=== PATIENT | female | born 1940 | race Caucasian/White ===

== ENCOUNTER → 2016-06-28 | Outpatient (CLI) | payer MEDICARE ==
[~2016-06-28] MED LIST: ASCO-262 PO; ASPI-587 PO; BISO5TAB PO; CHOL10007 PO; CYAN100088 PO; CYAN50TA PO; ERGO400C PO; FISH1CAP15 PO; FURO20TA4 PO; GLUC100016 PO; GLUC1CAP37 PO; LOSA50TA36 PO; MELO-198 PO; MELO15TA39 PO; METF500T4 PO; METF500T8 PO; NAPR220C11 PO; NEBI5TAB8 PO; OMEG-34 PO; POTA10CA43 PO; PREG50CA2 PO; VITAMINE C PO; [UNRECOGNIZED DRUG - OTHER]
--- OUTSIDE RECORDS SUMMARY | 2016-06-28 09:41 | XMS REPORT | Continuity of Care Document ---
Author Author [facility] Organization [facility] Address Unknown Phone Unavailable Care Team Providers Care Any Commodity Sales Deliverer Name Role Phone Unverified, Unverified PCP Unavailable Source Comments Some departments are not documenting in the electronic medical record. If you do not see the information that you expected, contact Release of Information in the Health Information Management department at [phone] for further assistance in locating additional records.[facility] Active Allergies and Adverse Reactions No Known Allergies Current Medications Prescription Sig. Disp. Refills Start End Date Status Date naproxen sodium(+) Take 220 mg by mouth Active (ALEVE) 220 mg tablet daily. aspirin 81 mg chewable Take 81 mg by mouth Active tablet daily. bisoprolol (ZEBETA) 5 mg Take 5 mg by mouth daily. Active tablet Snuktgfhdes-Ksifkwgza-Wvm Take by mouth daily. Active C-Mn (GLUCOSAMINE [...]
--- NOTE | 2016-06-28 10:30 | Diagnostic Imaging Report ---
EXAMINATION: Supine view of the abdomen. INDICATION: Right lower quadrant pain. FINDINGS: Small to moderate amount of fecal material seen in the right colon. No dilated bowel loops are seen. Multiple calcifications in the pelvis are noted which could relate to phleboliths or calcified fibroids. Mild left convexity curvature of the lumbar spine is seen with degenerative changes. IMPRESSION: Nonspecific, pelvic calcifications may relate to phleboliths or calcified fibroids. Dictated by: Dictated on workstation # [id number]
== END ==
LOC: RAD 09:36
PROVIDERS: ATTEND Nurse Practitioner Family
DX: R10.31 Right lower quadrant pain (principal); K59.00 Constipation, unspecified
CPT/HCPCS: 74000

== ENCOUNTER → 2016-07-06 | Outpatient (CLI) | payer MEDICARE ==
--- OUTSIDE RECORDS SUMMARY | 2016-07-06 15:03 | XMS REPORT | Continuity of Care Document ---
Author Author [facility] Organization [facility] Address Unknown Phone Unavailable Care Team Providers Care Zipper Sewing Machine Operator Name Role Phone Unverified, Unverified PCP Unavailable Source Comments Some departments are not documenting in the electronic medical record. If you do not see the information that you expected, contact Release of Information in the Health Information Management department at [phone] for further assistance in locating additional records.[facility] Active Allergies and Adverse Reactions No Known Allergies Current Medications Prescription Sig. Disp. Refills Start End Date Status Date naproxen sodium(+) Take 220 mg by mouth Active (ALEVE) 220 mg tablet daily. aspirin 81 mg chewable Take 81 mg by mouth Active tablet daily. bisoprolol (ZEBETA) 5 mg Take 5 mg by mouth daily. Active tablet Siuaasogssi-Ofpwdbgxd-Msb Take by mouth daily. Active C-Mn (GLUCOSAMINE [...]
--- NOTE | 2016-07-06 17:15 | Diagnostic Imaging Report ---
PROCEDURE: CT abdomen and pelvis without contrast. TECHNIQUE: Multiple contiguous axial images were obtained through the abdomen and pelvis without the use of intravenous contrast. INDICATION: Right upper quadrant abdominal pain with constipation. FINDINGS: Unenhanced images of the liver and spleen reveal no focal abnormality. Gallbladder is contracted. No pancreatic or adrenal gland abnormality is identified. Evaluation of the kidneys is limited without intravenous contrast; however, there is no evidence of mass, calculus, or hydronephrosis. There is no evidence of appendiceal region inflammation. There is mild aortoiliac atherosclerotic calcification. There is an approximately 3.5 x 3.7 cm collection of gas in the right upper quadrant, which likely represents diverticulum arising from the third portion of the duodenum. There is no evidence of free fluid in the abdomen or pelvis. No localized fluid collection is seen to indicate an abscess. Lobulated uterus does contain occasional calcifications compatible with fibroid change. IMPRESSION: Probable prominent duodenal diverticulum which could be confirmed with upper GI series. Otherwise, there is no acute abnormality identified. There is no significant excessive colonic stool burden or site of obstruction identified. Dictated by: Dictated on workstation # [id number]
== END ==
LOC: RAD 14:59
PROVIDERS: ATTEND Nurse Practitioner Family
DX: R10.11 Right upper quadrant pain (principal)
CPT/HCPCS: 74176

== ENCOUNTER → 2016-07-20 | Outpatient (CLI) | payer MEDICARE ==
[~2016-07-20] MED LIST changes: +CATHETER FLUSH 10 ML SYR IV PRN; +IOHEXOL 350 MG/ML 100 ML (OMNIPAQUE 350) VIAL IV ONE; +NS 100 ML (IVPB) BAG IV ONE
--- OUTSIDE RECORDS SUMMARY | 2016-07-20 12:39 | XMS REPORT | Continuity of Care Document ---
Author Author [facility] Organization [facility] Address Unknown Phone Unavailable Care Team Providers Care Hvac Tech Name Role Phone Unverified, Unverified PCP Unavailable Source Comments Some departments are not documenting in the electronic medical record. If you do not see the information that you expected, contact Release of Information in the Health Information Management department at [phone] for further assistance in locating additional records.[facility] Active Allergies and Adverse Reactions No Known Allergies Current Medications Prescription Sig. Disp. Refills Start End Date Status Date naproxen sodium(+) Take 220 mg by mouth Active (ALEVE) 220 mg tablet daily. aspirin 81 mg chewable Take 81 mg by mouth Active tablet daily. bisoprolol (ZEBETA) 5 mg Take 5 mg by mouth daily. Active tablet Rxoayaiuhit-Ifpiglnef-Wlx Take by mouth daily. Active C-Mn (GLUCOSAMINE [...]
[2016-07-20 12:55] LABS: BASOPHILS % (AUTO) 0 % (0-10); EOSINOPHILS # (AUTO) 0.3 10^3/uL (0.0-0.3); EOSINOPHILS % (AUTO) 4 % (0-10); LYMPHOCYTES # (AUTO) 1.9 X 10^3 (1.0-4.0); LYMPHOCYTES % (AUTO) 23 % (12-44); MEAN CORPUSCULAR HEMOGLOBIN 27 PG (25-34); MEAN CORPUSCULAR HGB CONC 33 G/DL (32-36); MEAN CORPUSCULAR VOLUME 82 FL (80-99); MEAN PLATELET VOLUME 9.6 FL (7.4-10.4); MONOCYTES # (AUTO) 0.8 X 10^3 (0.0-1.0); MONOCYTES % (AUTO) 9 % (0-12); NEUTROPHILS # (AUTO) 5.3 X 10^3 (1.8-7.8); NEUTROPHILS % (AUTO) 64 % (42-75); PLATELET COUNT 305 10^3/uL (130-400); RED BLOOD COUNT 5.34 10^6/uL (4.35-5.85); RED CELL DISTRIBUTION WIDTH 14.5 % (10.0-14.5); WHITE BLOOD COUNT 8.3 10^3/uL (4.3-11.0)
[2016-07-20 13:11] LABS: ALBUMIN 4.3 G/DL (3.2-4.5); BILIRUBIN,TOTAL 0.6 MG/DL (0.1-1.0); CALCIUM 10.3 MG/DL (8.5-10.1); CREATININE SERUM 1.12 MG/DL (0.60-1.30); POTASSIUM 5.1 MMOL/L (3.6-5.0); TOTAL PROTEIN 6.9 G/DL (6.4-8.2)
--- NOTE | 2016-07-20 15:10 | Diagnostic Imaging Report ---
INDICATION: Right lower quadrant pain. CT of the abdomen and pelvis obtained with IV contrast bolus. Comparison made to 07/06/2016. The visualized portions of the lung bases are clear. There are no pleural fluid collections. There is no free intraperitoneal air. The liver and gallbladder appear unremarkable. The spleen shows a few small cysts. The adrenals and pancreas are normal. There is a duodenal diverticulum noted. Kidneys bilaterally show no hydronephrosis. There is no ascites. There is no retroperitoneal mass or adenopathy. Visualized bowel loops appear unremarkable. The appendix appears unremarkable. The uterus has a somewhat irregular contour which may be secondary to fibroids. IMPRESSION: Normal-appearing appendix. No overt acute inflammatory process or abnormal fluid collection. Incidental cysts are noted in the spleen. The uterus has a somewhat irregular nodular contour which may be due to fibroids, consider ultrasound for follow-up. Dictated by: Dictated on workstation # [id number]
== END ==
LOC: RAD 12:35
PROVIDERS: ATTEND Surgery
DX: R10.31 Right lower quadrant pain (principal); R53.83 Other fatigue
CPT/HCPCS: 36415; 74177; 80053; 85025

== ENCOUNTER → 2016-07-24 | Outpatient (CLI) | payer MEDICARE ==
[~2016-07-24] MED LIST changes: -CATHETER FLUSH 10 ML SYR IV PRN; -IOHEXOL 350 MG/ML 100 ML (OMNIPAQUE 350) VIAL IV ONE; -NS 100 ML (IVPB) BAG IV ONE
--- OUTSIDE RECORDS SUMMARY | 2016-07-24 10:20 | XMS REPORT | Continuity of Care Document ---
Author Author [facility] Organization [facility] Address Unknown Phone Unavailable Care Team Providers Care Corporate Health Consultant Name Role Phone Unverified, Unverified PCP Unavailable Source Comments Some departments are not documenting in the electronic medical record. If you do not see the information that you expected, contact Release of Information in the Health Information Management department at [phone] for further assistance in locating additional records.[facility] Active Allergies and Adverse Reactions No Known Allergies Current Medications Prescription Sig. Disp. Refills Start End Date Status Date naproxen sodium(+) Take 220 mg by mouth Active (ALEVE) 220 mg tablet daily. aspirin 81 mg chewable Take 81 mg by mouth Active tablet daily. bisoprolol (ZEBETA) 5 mg Take 5 mg by mouth daily. Active tablet Ukhzhsjfjow-Uudsgvggd-Zbt Take by mouth daily. Active C-Mn (GLUCOSAMINE [...]
--- NOTE | 2016-07-24 14:29 | Diagnostic Imaging Report ---
Transabdominal and transvaginal pelvic ultrasound. INDICATION: Right pelvic pain. FINDINGS: The uterus is 6.1 x 4.3 x 4.2 cm and has a lobulated contour. The endometrial stripe is heterogeneous and is minimally thickened at 5 mm without internal vascularity demonstrated. The myometrium is also heterogeneous with fibroids seen with one anterior fibroid measuring 2.1 x 1.7 x 2.5 cm, other measuring 2.2 x 1.6 x 2.2 cm posteriorly, and another posterior fibroid also measuring 2.3 x 2.1 x 1.8 cm. The ovaries are obscured by bowel gas and are not seen. IMPRESSION: 1. Heterogeneity and minimal thickening in the endometrium, could correlate with endometrial hyperplasia or early carcinoma. Gynecologic evaluation is recommended. 2. Uterine fibroids. Report was called to office of Dr. Sin by at 2:29 p.m. Dictated by: Dictated on workstation # [id number]
== END ==
LOC: RAD 10:16
PROVIDERS: ATTEND Surgery
DX: D25.9 Leiomyoma of uterus, unspecified (principal); N85.00 Endometrial hyperplasia, unspecified
CPT/HCPCS: 76830; 76856

== ENCOUNTER 2016-07-25 05:50 | Outpatient (CLI) | payer MEDICARE ==
[~2016-07-25] VITALS: Ht 160 cm; Wt 73.5 kg
[~2016-07-25 05:50] MED LIST changes: -ASCO-262 PO; -BISO5TAB PO; -CHOL10007 PO; -CYAN100088 PO; -FISH1CAP15 PO; -GLUC100016 PO; -GLUC1CAP37 PO; -LOSA50TA36 PO; -MELO15TA39 PO; -METF500T4 PO; -NAPR220C11 PO; -PREG50CA2 PO; -VITAMINE C PO; -[UNRECOGNIZED DRUG - OTHER]
--- OUTSIDE RECORDS SUMMARY | 2016-07-25 05:52 | XMS REPORT | Continuity of Care Document ---
Author Author [facility] Organization [facility] Address Unknown Phone Unavailable Care Team Providers Care Cpr Instructor Name Role Phone Unverified, Unverified PCP Unavailable Source Comments Some departments are not documenting in the electronic medical record. If you do not see the information that you expected, contact Release of Information in the Health Information Management department at [phone] for further assistance in locating additional records.[facility] Active Allergies and Adverse Reactions No Known Allergies Current Medications Prescription Sig. Disp. Refills Start End Date Status Date naproxen sodium(+) Take 220 mg by mouth Active (ALEVE) 220 mg tablet daily. aspirin 81 mg chewable Take 81 mg by mouth Active tablet daily. bisoprolol (ZEBETA) 5 mg Take 5 mg by mouth daily. Active tablet Apfnddsivka-Kzkgqizql-Iws Take by mouth daily. Active C-Mn (GLUCOSAMINE [...]
[2016-07-26] MEDS ORDERED: BISO5TAB PO (08:31)
[2016-07-26] MEDS ORDERED: MELO15TA39 PO (08:31)
[2016-07-26] MEDS ORDERED: GLUC100016 PO (08:31)
[2016-07-26] MEDS ORDERED: NAPR220C11 PO (08:31)
[2016-07-26] MEDS ORDERED: [UNRECOGNIZED DRUG - OTHER] (08:31)
[2016-07-26] MEDS ORDERED: VITAMINE C PO (08:31)
[2016-07-26] MEDS ORDERED: LOSA50TA36 PO (08:31)
[2016-07-26] MEDS ORDERED: METF500T4 PO (08:31)
== END 2016-07-25 14:45 ==
LOC: PREOP 05:50
PROVIDERS: ATTEND Surgery
DX: Z01.818 Encounter for other preprocedural examination (principal); R19.4 Change in bowel habit

== ENCOUNTER 2016-07-26 07:49 | Day surgery (SDC) | payer MEDICARE ==
[~2016-07-26] VITALS: Ht 160 cm; Wt 73.5 kg
--- OUTSIDE RECORDS SUMMARY | 2016-07-26 07:53 | XMS REPORT | Continuity of Care Document ---
Author Author [facility] Organization [facility] Address Unknown Phone Unavailable Care Team Providers Care Human Resources Designate Name Role Phone Unverified, Unverified PCP Unavailable Source Comments Some departments are not documenting in the electronic medical record. If you do not see the information that you expected, contact Release of Information in the Health Information Management department at [phone] for further assistance in locating additional records.[facility] Active Allergies and Adverse Reactions No Known Allergies Current Medications Prescription Sig. Disp. Refills Start End Date Status Date naproxen sodium(+) Take 220 mg by mouth Active (ALEVE) 220 mg tablet daily. aspirin 81 mg chewable Take 81 mg by mouth Active tablet daily. bisoprolol (ZEBETA) 5 mg Take 5 mg by mouth daily. Active tablet Rhacsqfllmi-Pjcbfapgn-Vkc Take by mouth daily. Active C-Mn (GLUCOSAMINE [...]
--- OUTSIDE RECORDS SUMMARY | 2016-07-26 07:54 | XMS REPORT | Continuity of Care Document ---
Author Author [facility] Organization [facility] Address Unknown Phone Unavailable Care Team Providers Care Oilfield Plant And Field Operator Name Role Phone Unverified, Unverified PCP Unavailable Source Comments Some departments are not documenting in the electronic medical record. If you do not see the information that you expected, contact Release of Information in the Health Information Management department at [phone] for further assistance in locating additional records.[facility] Active Allergies and Adverse Reactions No Known Allergies Current Medications Prescription Sig. Disp. Refills Start End Date Status Date naproxen sodium(+) Take 220 mg by mouth Active (ALEVE) 220 mg tablet daily. aspirin 81 mg chewable Take 81 mg by mouth Active tablet daily. bisoprolol (ZEBETA) 5 mg Take 5 mg by mouth daily. Active tablet Xrdupyiojzb-Olnkztygh-Dei Take by mouth daily. Active C-Mn (GLUCOSAMINE [...]
[2016-07-26] MEDS ORDERED: NS IV 500 ML 500 ML IV SCH (08:00)
[2016-07-26] MEDS ORDERED: NALOXONE 0.4 MG/ML 1 ML (NARCAN) VIAL IVP PRN (08:00)
[2016-07-26] MEDS ORDERED: FLUMAZENIL (ROMAZICON) 0.1 MG/ML 5 ML VIAL INJ PRN (08:00)
[2016-07-26] MEDS ORDERED: NS IV 500 ML 500 ML ONE (08:01)
[2016-07-26] MEDS ORDERED: VITAMINE C PO (08:31)
[2016-07-26] MEDS ORDERED: GLUC100016 PO (08:31)
[2016-07-26] MEDS ORDERED: METF500T4 PO (08:31)
[2016-07-26] MEDS ORDERED: [UNRECOGNIZED DRUG - OTHER] (08:31)
[2016-07-26] MEDS ORDERED: BISO5TAB PO (08:31)
[2016-07-26] MEDS ORDERED: LOSA50TA36 PO (08:31)
[2016-07-26] MEDS ORDERED: MELO15TA39 PO (08:31)
[2016-07-26] MEDS ORDERED: NAPR220C11 PO (08:31)
[2016-07-26 08:32] VITALS: BP 107/70
[2016-07-26] MEDS: fentaNYL INJECTION 100 MCG/2 ML AMP IVP PRN ×2 (09:27→09:40)
[2016-07-26] MEDS: MIDAZOLAM 2 MG/2 ML (VERSED) VIAL IVP PRN ×2 (09:30→09:35)
--- NOTE | 2016-07-26 09:30 | Pre-Op Note & Conscious Sedat ---
Pre-Operative Progress Note H&P Reviewed The H&P was reviewed, patient examined and no changes noted. Date H&P Reviewed: Jul 26, 2016 Time H&P Reviewed: 09:29 Pre-Op Diagnosis: change in bowel habits. Right lower quadrant abdominal pain Conscious Sedation Pre-Proced ASA Class: 2 Airway Mallampati Classification: ([place] appropriate class) I. II. III, IV Lungs Heart ASA score ASA 1: a normal healthy patient ASA 2: a patient with a mild systemic disease (mid diabetes, controlled hypertension, obesity ASA 3: a patient with a severe systemic disease that limits activity (angina , COPD, prior Myocardial infarction) ASA 4: a patient with an incapacitating disease that is a constant threat to life (CHF, renal failure) ASA 5: a moribund patient not expected to survive 24 hrs. (ruptured aneurysm) ASA 6: a declared brain patient whose organs are being harvested. For emergent operations, add the letter E after the classification Grade 1 Sedation Plan: Discussed options with patient/fam Note The patient is an appropriate candidate to undergo the planned procedure, sedation, and anesthesia. The patient immediately re-assessed prior to indication. MARY MATIAS MD Jul 26, 2016 9:30 am
[2016-07-26] MEDS ORDERED: MIDAZOLAM 2 MG/2 ML (VERSED) VIAL ONE ×3 (09:32)
[2016-07-26] MEDS ORDERED: fentaNYL INJECTION 100 MCG/2 ML AMP ONE ×2 (09:32)
--- NOTE | 2016-07-26 09:54 | Progress Note-Post Operative ---
Post-Operative Progess Note Pre-Operative Diagnosis change in bowel habits. Right lower quadrant abdominal pain Post-Operative Diagnosis sigmoid diverticulosis Post-Op Procedure Note Date of Procedure: Jul 26, 2016 Name of Procedure: ccolonoscopy to cecum Anesthesia Type sedation MARY MATIAS MD Jul 26, 2016 9:53 am
--- NOTE | 2016-07-26 09:55 | Discharge Inst-Simple/Standard ---
Discharge Inst-Standard Discharge Medications New, Converted or Re-Newed RX: Other Patient Instructions/Follow Up Plan of Care/Instructions/FU: to attend the [facility] [employer] [facility] appointment as scheduled Activity as Tolerated: Yes Discharge Diet: No Restrictions MARY MATIAS MD Jul 26, 2016 9:55 am
[2016-07-26 10:25] VITALS: BP 147/70
[2016-07-26 10:53] VITALS: BP 152/79
[2016-07-26 11:01] VITALS: BP 152/79
--- NOTE | 2016-07-27 11:21 | PROCEDURE REPORT ---
PROCEDURE PHYSICIAN: MARY MATIAS DATE OF PROCEDURE: 07/26/2016 PROCEDURE: Colonoscopy. SURGEON: Merrikc INDICATION FOR THE PROCEDURE: This lady has been evaluated for the 3 week history of pain over the right lower quadrant and a change in her bowel habits. She has a family history of colon cancer and a personal history of polyps. Informed consent was obtained after reviewing the procedure in detail. DESCRIPTION OF PROCEDURE: She was placed in left lateral decubitus position and her vital signs were monitored. Conscious sedation was achieved using Versed and Fentanyl. Examination of the perianal area revealed skin tags and external hemorrhoids. The colonoscope was then introduced into the rectum and advanced all the way up to the cecum. The quality of bowel preparation was excellent. FINDINGS: Very few sigmoid diverticula. No polyps were found. She tolerated the procedure well and was taken back to the nursing area in a stable condition. IMPRESSION: 1. Right lower quadrant pain. 2. No contributing lesions found on the right colon. Job ID: [id number] Dictated Date: 07/26/2016 09:50:42 Flight Manager Date: 07/27/2016 11:18:02 / belen OCONNELL
== END 2016-07-26 11:00 | disposition home or self-care (01) ==
LOC: ENDO 07:49
PROVIDERS: ATTEND Surgery
DX: R19.4 Change in bowel habit (principal); K57.30 Diverticulosis of large intestine without perforation or abscess without bleeding; R10.31 Right lower quadrant pain

== ENCOUNTER 2016-08-02 10:25 | Inpatient (IN) | payer MEDICARE ==
[~2016-08-02] VITALS: Ht 160 cm; Wt 76.3 kg
[~2016-08-02 10:25] MED LIST changes: +BISO5TAB PO; +GLUC100016 PO; +LOSA50TA36 PO; +MELO15TA39 PO; +METF500T4 PO; +NAPR220C11 PO; +VITAMINE C PO; +[UNRECOGNIZED DRUG - OTHER]
[2016-08-02] MEDS ORDERED: fentaNYL INJECTION 100 MCG/2 ML AMP IV PRN (10:30)
[2016-08-02] MEDS ORDERED: ENOXAPARIN 40 MG/0.4 ML (LOVENOX) SYR SC SCH (10:30)
--- NOTE | 2016-08-02 10:54 | History & Physicial ---
History of Present Illness History of Present Illness Reason for visit/HPI intractable abdominal pain Date of Admission I consulted on this patient on 08/02/16 10:36 Attending Physician Gracia Yadav MD Admitting Physician Gracia Yadav MD Consult Allergies and Home Medications Allergies Coded Allergies: No Known Drug Allergies (Verified , 07/26/16) Home Medications 500 MG PO DAILY (Reported) (Reported) Aspirin 81 Mg Tablet.dr 81 MG PO (Reported) Bisoprolol Fumarate 5 Mg Tablet 5 MG PO DAILY (Reported) Cholecalciferol 400 Unit Capsule 400 UNIT PO DAILY (Reported) Cyanocobalamin 50 Mcg Tablet 50 MCG PO DAILY (Reported) Glucosamine Sulfate 2Kcl 1,000 Mg Tablet 1,000 MG PO DAILY (Reported) Losartan Potassium 50 Mg Tablet 50 MG PO DAILY (Reported) Meloxicam 15 Mg Tablet 15 MG PO DAILY (Reported) Metformin HCl 500 Mg Tablet 500 MG PO DAILY (Reported) Metformin Hcl 500 Mg Tab.sr.24h 1 EACH PO DAILY WITH MEAL (Reported) Naproxen Sodium 220 Mg Capsule 220 MG PO NEEDED (Reported) [place]-3/Dha/Epa/Fish Oil 1 Each Capsule 1 EACH PO DAILY (Reported) Past Qqgzfjz-Hnlxol-Srbspy Hx Patient Social History Marrital Status: Number of Children: 1 Number of living children: 1 Living Status: lives at home alone 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 Alcohol Use: Denies Use Recreational Drug Use: No Smoking Status: Never a Smoker 2nd Hand Smoke Exposure: No Physical Abuse Screen: No Sexual Abuse: No Recent Foreign Travel: No Contact w/other who traveled: No Recent Hopitalizations: No Recent Infectious Disease Expo: No Seasonal Allergies Seasonal Allergies: Yes (MILD) Surgeries HX Surgeries: Yes (BACK, CATARACT, ROTATOR CUFF) Surgeries: Orthopedic Respiratory Hx Respiratory Disorders: No Cardiovascular Hx Cardiovascular Disorders: Yes Cardiac Disorders: Hypertension Neurological Hx Neurological Disorders: No Reproductive System : No Hx Reproductive Disorders: No Sexually Transmitted Disease: No HIV/AIDS: No Genitourinary Hx Genitourinary Disorders: No Gastrointestinal Hx Gastrointestinal Disorders: No Musculoskeletal Hx Musculoskeletal Disorders: Yes Musculoskeletal Disorders: Arthritis Endocrine Hx Endocrine Disorders: Yes Endocrine Disorders: Diabetes, Non-Insulin dep HEENT HX ENT Disorders: No Loss of Vision: Denies Hearing Impairment: Denies Cancer Hx Cancer: No Psychosocial Hx Psychiatric Problems: No Integumentary HX Skin/Integumentary Disorder: No Blood Transfusions Hx Blood Disorders: No Adverse Reaction to a Blood Tr: No (N/A) Reviewed Nursing Assessment Reviewed/Agree w Nursing PMH: Yes Family Medical History Significant Family History: Heart Disease (mother), Cancer (colon cancer, father, brother with cancer), Hypertension (mother) Constitutional: No chills, No fever, No malaise, No weakness EENTM: No hoarseness, No mouth swelling, No throat pain, No throat swelling Respiratory: No cough, No dyspnea on exertion, No short of breath Cardiovascular: No chest pain, No palpitations Gastrointestinal: abdominal pain (RLQ)No constipation, No loss of appetite, No melena, No nausea, No vomiting Genitourinary: No dysuria, No hematuria Musculoskeletal: No back pain, No muscle weakness Skin: no symptoms reported Psychiatric/Neurological: Anxiety (over her pain)Denies Numbness, Denies Paresthesia, Denies Weakness All Other Systems Reviewed Negative Unless Noted: Yes Physical Exam Vital Signs Capillary Refill : General Appearance: WD/WN Mild Distress Eyes: Bilateral Eye EOMI, Bilateral Eye Normal Inspection, Bilateral Eye PERRL HEENT: PERRL/EOMI Pharynx Normal Neck: Full Range of Motion Supple Respiratory: Chest Non Tender Lungs Clear Normal Breath Sounds No Accessory Muscle Use No Respiratory Distress Cardiovascular: Regular Rate, Rhythm No Edema Gastrointestinal: Normal Bowel Sounds Soft Tenderness (rlq from above iliac crest down to suprapubic region, mild pain with raising right leg, no pain with raising left leg) Rectal: Deferred Extremity: Normal Capillary Refill Non Tender No Calf Tenderness Neurologic/Psychiatric: Alert Oriented x3 No Motor/Sensory Deficits Normal Mood/Affect special events director II-XII Norm as Tested Skin: Normal Color Warm/Dry Lymphatic: No Adenopathy Assessment/Plan Assessment and Plan INTRACTABLE ABDOMINAL PAIN - RIGHT LOWER QUADRANT UNCONTROLLED PAIN HYPERTENSION PT ADMITTED FOR PAIN CONTROL, MRI ORDERED WITH AND WITHOUT CONTRAST - OF ABDOMEN AND PELVIS - DEPENDING ON FINDINGS, WILL CONSULT SURGERY FOR EVAL AND POSSIBLE ANESTHESIA FOR NERVE BLOCK. PT STARTED ON IV FENTANYL FOR PAIN CONTROL HTN - WILL RESTART HOME MEDS ANXIETY - WILL ORDER SOME ANXIOLYTICS. Admission Diagnosis INTRACTABLE ABDOMINAL PAIN - RIGHT LOWER QUADRANT UNCONTROLLED PAIN HYPERTENSION GRACIA YADAV MD Aug 02, 2016 10:54
--- OUTSIDE RECORDS SUMMARY | 2016-08-02 10:58 | XMS REPORT | Continuity of Care Document ---
Author Author [facility] Organization [facility] Address Unknown Phone Unavailable Care Team Providers Care Roller Print Tender Name Role Phone Unverified, Unverified PCP Unavailable Source Comments Some departments are not documenting in the electronic medical record. If you do not see the information that you expected, contact Release of Information in the Health Information Management department at [phone] for further assistance in locating additional records.[facility] Active Allergies and Adverse Reactions No Known Allergies Current Medications Prescription Sig. Disp. Refills Start End Date Status Date naproxen sodium(+) Take 220 mg by mouth Active (ALEVE) 220 mg tablet daily. aspirin 81 mg chewable Take 81 mg by mouth Active tablet daily. bisoprolol (ZEBETA) 5 mg Take 5 mg by mouth daily. Active tablet Arjvtqztefb-Zgftbosah-Wta Take by mouth daily. Active C-Mn (GLUCOSAMINE [...]
[2016-08-02 11:05] VITALS: BP 141/89
[2016-08-02] MEDS ORDERED: CATHETER FLUSH 10 ML SYR IV PRN (11:45)
[2016-08-02 12:26] LABS: BILIRUBIN,URINE NEGATIVE (NEGATIVE); KETONES,URINE NEGATIVE (NEGATIVE); LEUKOCYTE ESTERASE ,URINE 2+ (NEGATIVE); NITRITE,URINE NEGATIVE (NEGATIVE); PH,URINE 5 (5-9); PROTEIN,URINE NEGATIVE (NEGATIVE); UROBILINOGEN,URINE NORMAL (NORMAL)
[2016-08-02 12:40] LABS: SQUAMOUS EPITHELIAL CELL,UR 0-2 /HPF; WBC,URINE 0-2 /HPF
[2016-08-02] MEDS: NS IV 1000 ML 1,000 ML IV SCH ×2 (12:55→21:36)
[2016-08-02 13:03] LABS: BASOPHILS % (AUTO) 0 % (0-10); EOSINOPHILS # (AUTO) 0.4 10^3/uL (0.0-0.3); EOSINOPHILS % (AUTO) 4 % (0-10); LYMPHOCYTES # (AUTO) 1.5 X 10^3 (1.0-4.0); LYMPHOCYTES % (AUTO) 16 % (12-44); MEAN CORPUSCULAR HEMOGLOBIN 27 PG (25-34); MEAN CORPUSCULAR HGB CONC 33 G/DL (32-36); MEAN CORPUSCULAR VOLUME 83 FL (80-99); MEAN PLATELET VOLUME 9.4 FL (7.4-10.4); MONOCYTES # (AUTO) 0.8 X 10^3 (0.0-1.0); MONOCYTES % (AUTO) 8 % (0-12); NEUTROPHILS % (AUTO) 72 % (42-75); PLATELET COUNT 318 10^3/uL (130-400); RED BLOOD COUNT 4.69 10^6/uL (4.35-5.85); RED CELL DISTRIBUTION WIDTH 14.8 % (10.0-14.5); WHITE BLOOD COUNT 9.7 10^3/uL (4.3-11.0)
[2016-08-02] MEDS ORDERED: GLUC1CAP37 PO (13:05)
[2016-08-02] MEDS ORDERED: ASCO-262 PO (13:05)
[2016-08-02] MEDS ORDERED: NAPR220C11 PO (13:05)
[2016-08-02] MEDS ORDERED: CYAN100088 PO (13:05)
[2016-08-02] MEDS ORDERED: FISH1CAP15 PO (13:05)
[2016-08-02] MEDS ORDERED: CHOL10007 PO (13:05)
[2016-08-02 13:21] LABS: ANION GAP 10 MMOL/L (5-14); BILIRUBIN,TOTAL 0.7 MG/DL (0.1-1.0); BLOOD UREA NITROGEN 22 MG/DL (7-18); BUN/CREATININE RATIO 27; CALCIUM 9.9 MG/DL (8.5-10.1); CARBON DIOXIDE 26 MMOL/L (21-32); CHLORIDE 105 MMOL/L (98-107); CREATININE SERUM 0.81 MG/DL (0.60-1.30); ERYTHROCYTE SEDIMENTATION RATE 7 MM/HR (0-30); GFR ESTIMATED > 60; GLUCOSE 98 MG/DL (70-105); POTASSIUM 4.8 MMOL/L (3.6-5.0); SODIUM 141 MMOL/L (135-145)
[2016-08-02 13:22] LABS: ALANINE AMINOTRANSFERASE 15 U/L (0-55); ALBUMIN 3.7 G/DL (3.2-4.5); ASPARTATE AMINO TRANSFERASE 17 U/L (5-34); TOTAL PROTEIN 6.2 G/DL (6.4-8.2); hs C REACTIVE PROTEIN 0.28 MG/DL (0.00-0.50)
[2016-08-02] MEDS ORDERED: GADOBUTROL 7.5 MMOL/7.5 ML (GADAVIST) VIAL IV ONE (15:30)
--- NOTE | 2016-08-02 16:12 | Diagnostic Imaging Report ---
PROCEDURE: MR imaging abdomen with and without contrast. TECHNIQUE: Multiplanar, multisequence MR imaging of the abdomen was performed with and without contrast. INDICATION: Severe right lower quadrant pain. CONTRAST: 7 mL of Gadavist is administered intravenously. FINDINGS: There are a few foci of T2 hyperintense signal lesions, less than a centimeter in size, within the spleen with a suggestion of minimal contrast enhancement. This could be related to old granulomas or atypical hemangiomas given their lobulated smooth margins and minimal enhancement. The liver is fairly homogeneous with no focal mass. The gallbladder demonstrates no stones or evidence of cholecystitis. The pancreas appears normal. The adrenal glands appear unremarkable. The kidneys have symmetric enhancement, and no evidence of hydronephrosis is seen. The osseous structures appear grossly unremarkable. No fluid collection or ascites in the abdomen is seen. There is no bowel obstruction. Tiny fat-containing umbilical hernia is seen. The anterior abdominal wall appears otherwise unremarkable. In the L4 vertebral body, there is a fat-containing lesion measuring 1.3 cm in the marrow suggestive of hemangioma. IMPRESSION: 1. Multiple subcentimeter nonspecific lesions in the spleen favored to be benign such as granulomas or atypical hemangiomas. 2. Tiny fat-containing umbilical hernia. Dictated by: Dictated on workstation # [id number]
--- NOTE | 2016-08-02 16:27 | Diagnostic Imaging Report ---
PROCEDURE: MRI pelvis with and without contrast. TECHNIQUE: Multiplanar, multisequence MRI of the pelvis was performed with and without contrast. INDICATION: Intractable right lower quadrant and right pelvic pain. CONTRAST: 7 mL of Gadavist is administered intravenously. FINDINGS: There are numerous uterine fibroids seen with multiple subserosal fibroids noted. These are of variable sizes up to 2.6 cm resulting in significantly lobulated contour of the uterus. They demonstrate mild degree of enhancement. They are slightly eccentric to the left. There is no abnormal fluid collection seen. There is slight outpouching of the posteroinferior aspect of the urinary bladder abutting the anterior wall of the vagina probably related to mild prolapse from slight muscle laxity or weakness. In the sacral canal, there is a cystic lesion that has smooth margins extending 2.7 cm craniocaudally at the S1 and S2 levels and 1.6 cm in AP dimension and 1.8 cm transversely. It appears to result in thinning of the posterior elements in the sacrum on the left side and is not associated with contrast enhancement compatible with a Tarlov cyst. There is no sacral insufficiency fracture seen. The muscles around the pelvis have symmetric signal and bulk. There is no Spigelian, inguinal, or femoral hernia demonstrated. No evidence of avascular necrosis in the femoral head or femoral neck stress fracture. IMPRESSION: 1. Numerous uterine fibroids with multiple subserosal lesions deforming the contour of the uterus. 2. 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 This is probably a long-standing remodeling of the bone with no aggressive features or solid mass seen. 3. Slight outpouching of the posteroinferior aspect of the urinary bladder in an inferior direction between the vagina and the proximal urethra probably secondary to bladder and/or vaginal wall laxity. Dictated by: Dictated on workstation # [id number]
[2016-08-02] MEDS ORDERED: FLU TRIvalent (5 YOA+) 2016-17 (AFLURIA) 0.5 ML IM ONE (17:00)
[2016-08-02 17:35] VITALS: BP 158/78
--- NOTE | 2016-08-02 17:50 | Consultation ---
History of Present Illness History of Present Illness Patient Consulted On(reese/time) 08/02/16 17:44 Date of Admission August 02, 2016 Reason for Visit: intractable abdominal pain History of Present Illness Patient is 76-year-old female seen in consultation for chief complaints of right lower abdominal pain. Patient reports onset of pain approximately one month ago associated with taking pain medication for a right shoulder surgery and she reports she started to suffer severe constipation with her pain medication and subsequently developed ear intractable pain located in her right lower abdomen that has failed to improve over the past month. Currently rating the pain on average as a 7 out of 10 on a 10 point visual analog scale and it is pressure and constant in nature. Currently nothing is improving the pain and the pains are aggravated by standing or walking. She reports having had multiple different imaging studies and evaluations including by Dr. Echevarria and Dr. Sin with no definitive source for the pain identified. Currently for pain she didn't know 50 g every 2 hours as needed for pain ordered but expresses concern for taking that medication secondary to issues with constipation with previous pain medications. Allergies and Home Medications Allergies Coded Allergies: No Known Drug Allergies (Verified , 07/26/16) Home Medications Ascorbate Calcium 500 Mg Tablet 500 MG PO DAILY (Reported) Aspirin 81 Mg Tablet.dr 81 MG PO DAILY (Reported) Bisoprolol Fumarate 5 Mg Tablet 5 MG PO DAILY (Reported) Cholecalciferol (Vitamin D3) 1,000 Unit Capsule 1,000 UNIT PO DAILY (Reported) Cyanocobalamin (Vitamin B-12) 1,000 Mcg Tablet 1,000 MCG PO DAILY (Reported) Fish Oil/Dha/Epa 1 Each Capsule 1,200 MG PO DAILY (Reported) Glucosa Cespedes 2Kcl/Chondroitin Cespedes 1 Each Capsule 1 CAP PO DAILY (Reported) Losartan Potassium 50 Mg Tablet 50 MG PO DAILY (Reported) Meloxicam 15 Mg Tablet 15 MG PO DAILY (Reported) Metformin Hcl 500 Mg Tab.sr.24h 500 MG PO DAILY (Reported) Naproxen Sodium 220 Mg Capsule 220 MG PO DAILY (Reported) Naproxen Sodium 220 Mg Capsule 220 MG PO HS PRN PRN MODERATE PAIN (Reported) Past Xmpoyvl-Dawfxk-Tphhhr Hx Patient Social History Alcohol Use: Denies Use Recreational Drug Use: No Smoking Status: Never a Smoker 2nd Hand Smoke Exposure: No Recent Foreign Travel: No Contact w/Someone Who Travel: No Recent Infectious Disease Expo: No Recent Hopitalizations: No Physical Abuse Screen: No Sexual Abuse: No Seasonal Allergies Seasonal Allergies: Yes (MILD) Surgeries HX Surgeries: Yes (BACK, CATARACT, ROTATOR CUFF) Surgeries: Orthopedic Respiratory Hx Respiratory Disorders: No Cardiovascular Hx Cardiac Disorders: Yes Cardiac Disorders: Hypertension Neurological Hx Neurological Disorders: No Reproductive System : No Hx Reproductive Disorders: No Sexually Transmitted Disease: No HIV/AIDS: No Genitourinary Hx Genitourinary Disorders: No Gastrointestinal Hx Gastrointestinal Disorders: No Musculoskeletal Hx Musculoskeletal Disorders: Yes Musculoskeletal Disorders: Arthritis Endocrine Hx Endocrine Disorders: Yes Endocrine Disorders: Diabetes, Non-Insulin dep HEENT HX ENT Disorders: No Loss of Vision: Denies Hearing Impairment: Denies Cancer Hx Cancer: No Psychosocial Hx Psychiatric Problems: No Integumentary HX Skin/Integumentary Disorder: No Blood Transfusions Hx Blood Disorders: No Adverse Reaction to a Blood Tr: No (N/A) Reviewed Nursing Assessment Reviewed/Agree w Nursing PMH: Yes Family Medical History Significant Family History: Heart Disease (mother), Cancer (colon cancer, father, brother with cancer), Hypertension (mother) Family Medial History: FELL G8 SISTER FH: colon cancer 19 FATHER FH: hypertension 19 MOTHER FH: lung cancer 19 MOTHER FH: pancreatic cancer 19 FATHER FH: prostate cancer G8 SISTER G8 SISTER FHx: congenital heart disease 19 FATHER FHx: heart disease 19 MOTHER Hypertension G8 SISTER G8 SISTER Pulmonary hypertension 19 MOTHER Stent 19 FATHER Review of Systems-General Constitutional: see HPI EENTM: no symptoms reported Respiratory: no symptoms reported Cardiovascular: no symptoms reported Gastrointestinal: see HPI Genitourinary: no symptoms reported Musculoskeletal: back pain Skin: no symptoms reported Psychiatric/Neurological: No Symptoms Reported Physical Exam-General Problems Physical Exam Vital Signs Vital Sign - Last 12Hours 08/02/16 11:05 Temp 96.5 Pulse 67 B/P 141/89 Pulse Ox 100 Capillary Refill : General Appearance: moderate distress Eyes: Bilateral Eye EOMI, Bilateral Eye PERRL Respiratory: no respiratory distress no accessory muscle use Gastrointestinal: other (tenderness to palpation in the right lower quadrant into the right groin with no rebound or guarding. No masses identified upon palpation.) Extremities: normal range of motion normal inspection Neurologic/Psychiatric: alert normal mood/affect oriented x 3 Skin: normal color warm/dry Assessment/Plan Assessment/Plan Admission Diagnosis/Plan Assessment Right lower quadrant abdominal pain, uncertain etiology Plan: Patient was counseled about the etiology of her abdominal/groin pain and was advised that her pain appears to be most consistent with pain being mediated through the right ilioinguinal nerve distribution so we will plan to proceed with trial of a ilioinguinal nerve block in addition to starting neuropathic agent Lyrica to try to help with her pain complaints. Patient was counseled at length about the etiology of their pain and and was advised that they would likely benefit from a right ilioinguinal nerve block. patient was counseled on the risks and benefits of the procedure including but not limited to bleeding, infection, seizures, injury to the bowel, lack of pain relief, and nerve damage and elects to proceed. Will schedule the procedure at the patient's earliest convenience. Start Lyrica 50 mg one tab twice daily for neuropathic pain Thank you for this consultation. Clinical Quality Measures DVT/VTE Risk/Contraindication: Risk Factor Score Per Nursin RFS Level Per Nursing on Admit: 2=Moderate CHARITY GIRALDO MD Aug 02, 2016 17:49
[2016-08-02 20:45] VITALS: BP 128/68
[2016-08-02] MEDS: PREGABALIN 50 MG (LYRICA) CAP PO SCH (20:48)
[2016-08-03 00:10] VITALS: BP 128/71
[2016-08-03 04:05] VITALS: BP 132/67
[2016-08-03] MEDS: NS IV 1000 ML 1,000 ML IV SCH (05:22)
[2016-08-03] MEDS ORDERED: PANTOPRAZOLE 40 MG (PROTONIX) TAB PO SCH (07:00)
[2016-08-03 08:00] VITALS: BP 118/67
[2016-08-03] MEDS: PREGABALIN 50 MG (LYRICA) CAP PO SCH (08:07)
[2016-08-03] MEDS ORDERED: PREG50CA2 PO (09:00)
--- NOTE | 2016-08-03 09:02 | Discharge Inst-Complex ---
PDI Med Rec & Follow Up Appt. New Medications: Pregabalin (Lyrica) 50 Mg Capsule 50 MG PO BID #60 Ref 1 CAP Continued Medications: Ascorbate Calcium (Vitamin C) 500 Mg Tablet 500 MG PO DAILY TAB Aspirin (Aspir 81) 81 Mg Tablet.dr 81 MG PO DAILY TAB Bisoprolol Fumarate (Bisoprolol Fumarate) 5 Mg Tablet 5 MG PO DAILY TAB Cholecalciferol (Vitamin D3) (Vitamin D3) 1,000 Unit Capsule 1000 UNIT PO DAILY CAP Cyanocobalamin (Vitamin B-12) (B-12) 1,000 Mcg Tablet 1000 MCG PO DAILY TAB Fish Oil/Dha/Epa (Fish Oil 1,200 mg Fish Oil) 1 Each Capsule 1200 MG PO DAILY CAP Glucosa Cespedes 2Kcl/Chondroitin Cespedes (Glucosamine & Chondroitin Cap) 1 Each Capsule 1 CAP PO DAILY CAP Losartan Potassium (Losartan Potassium) 50 Mg Tablet 50 MG PO DAILY TAB Meloxicam (Meloxicam) 15 Mg Tablet 15 MG PO DAILY TAB Metformin Hcl (Metformin Er 500MG) 500 Mg Tab.sr.24h 500 MG PO DAILY TAB Naproxen Sodium (Aleve) 220 Mg Capsule 220 MG PO DAILY CAP Naproxen Sodium (Aleve) 220 Mg Capsule 220 MG PO HS PRN MODERATE PAIN CAP Prescription: Transmitted to Pharmacy Activity, Diet and PDI Resume Normal Activity: Yes Discharge Diet: Regular Diet Drink 6-8 Glasses of Fluid/Day: Yes Driving Instructions: No Driving for 24 Hours May Return to Work/School/Day: May Return to Work (on saturday08/06/16) Symptoms to Reoprt to DrCarlos Alberto: Fever Over 101 Degrees F For Problems or Questions: Contact Your Physician, Go to Emergency Room GRACIA GUERRA MD Aug 03, 2016 09:02
--- NOTE | 2016-08-03 09:09 | Discharge Summary ---
Diagnosis/Chief Complaint Date of Admission Aug 02, 2016 at 10:48 Date of Discharge Discharge Date: Aug 03, 2016 Discharge Time: 14:30 Admission Diagnosis Admission Diagnosis INTRACTABLE ABDOMINAL PAIN - RIGHT LOWER QUADRANT UNCONTROLLED PAIN HYPERTENSION Discharge Diagnosis INTRACTABLE ABDOMINAL PAIN - RIGHT LOWER QUADRANT UNCONTROLLED PAIN HYPERTENSION Reason Hospital Visit intractable abdominal pain for a month - pt doubled over in pain from her abdomen. pt admitted for pain control and further testing to try to elucidate the cause of her pain. Discharge Summary Discharge Physical Examination Allergies: Coded Allergies: No Known Drug Allergies (Verified , 07/26/16) Vitals & I&Os Vital Signs Date Time Temp Pulse Resp B/P Pulse Ox O2 Delivery O2 Flow Rate FiO2 08/03/16 08:00 97.8 62 20 118/67 98 Room Air General Appearance: Alert, Oriented X3, Cooperative HEENT: Atraumatic, PERRLA Respiratory: Clear to Auscultation Cardiovascular: Regular Rate Abdominal: Normal Bowel Sounds, Soft, Other (ttp right lower quadrant) Neuro: Cranial Nerves 3-12 NL Psych/Mental Status: Mental Status NL, Mood NL Hospital Course consultation information from dr. bright: Assessment Right lower quadrant abdominal pain, uncertain etiology Patient was counseled about the etiology of her abdominal/groin pain and was advised that her pain appears to be most consistent with pain being mediated through the right ilioinguinal nerve distribution so we will plan to proceed with trial of a ilioinguinal nerve block in addition to starting neuropathic agent Lyrica to try to help with her pain complaints. INTRACTABLE ABDOMINAL PAIN - RIGHT LOWER QUADRANT UNCONTROLLED PAIN HYPERTENSION PT ADMITTED FOR PAIN CONTROL, MRI ORDERED WITH AND WITHOUT CONTRAST - OF ABDOMEN AND PELVIS -mri findings negative - no acute process in abdomen - therefore, Dr. Bright consulted - see the above information from his note. PT STARTED ON IV FENTANYL FOR PAIN CONTROL - lyrica 50mg bid HTN - RESTARTED HOME MEDS ANXIETY - WILL ORDER SOME ANXIOLYTICS. 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 Discharge Condition at discharge improved Instructions to patient/family Please see electonic discharge instructions given to patient. Discharge Medications Reviewed and agree with Discharge Medication list on patient's Discharge Instruction sheet Clinical Quality Measures DVT/VTE Risk/Contraindication: Risk Factor Score Per Nursin RFS Level Per Nursing on Admit: 2=Moderate GRACIA GUERRA MD Aug 03, 2016 09:09
[2016-08-03] MEDS ORDERED: LIDOCAINE 1% INJ 20 ML (XYLOCAINE) VIAL ONE (12:37)
[2016-08-03] MEDS ORDERED: BUPIVACAINE 0.25% 30 ML (SENSORCAINE) VIAL ONE (12:37)
[2016-08-03] MEDS ORDERED: TRIAMCINOLONE ACET (KENALOG-40) 40 MG/ML 1 ML VIAL ONE (12:37)
[2016-08-03 13:30] VITALS: BP 135/86
--- NOTE | 2016-08-03 14:20 | Pain Medicine-Procedure ---
Procedure Pre-Op/Post-Op Diagnosis Diagnosis: ilioinguinal neuralgia Indications for Operation Right lower abdominal/groin pain Attending Surgeon Deangelo Procedure Date of Service: Aug 03, 2016 Procedure: Right ilioinguinal nerve block under ultrasound guidance Risk and benefits of procedure were discussed with the patient and the patient elected to proceed. Consent form was signed. Patient was placed in the supine position on the procedure room table. Anterior superior iliac spine was identified by palpation in the region 2 inches inferior and 2 inches medial was prepped and cleansed with ChloraPrep in the usual sterile fashion. Ultrasound probe was then used to identify the ilioinguinal nerve and the skin overlying entry site was anesthetized with 1 percent lidocaine. A 22-gauge 3-1/2 inch needle was inserted and advanced under direct ultrasound guidance until the needle was noted to be next to the ilioinguinal nerve. Following negative aspiration a total of 10 mL of 0.25 percent bupivacaine and 80 mg of Kenalog was injected under direct ultrasound visualization. Needle was withdrawn and a sterile bandage was applied. Patient tolerated the procedure well. No apparent complications. Patient was transferred back to her room on the floor in stable condition following the procedure. Complications None CHARITY GIRALDO MD Aug 03, 2016 14:20
== END 2016-08-03 13:45 | disposition home or self-care (01) | DRG 392 ==
LOC: 4TH 10:48 → WS 17:30
PROVIDERS: ADMIT Family Medicine; ATTEND Family Medicine
PROC: 3E0T3BZ Introduction of Anesthetic Agent into Peripheral Nerves and Plexi, Percutaneous Approach (ICD-10-PCS; principal; 2016-08-03)
DX: R10.31 Right lower quadrant pain (principal); I10 Essential (primary) hypertension; E11.9 Type 2 diabetes mellitus without complications; F41.9 Anxiety disorder, unspecified
CPT/HCPCS: 36415; 64450; 72197; 74183; 76942; 80053; 81000; 85025; 85652; 86141

== ENCOUNTER → 2016-08-13 | Outpatient (CLI) | payer MEDICARE ==
[~2016-08-13] MED LIST changes: +ASCO-262 PO; +CHOL10007 PO; +CYAN100088 PO; +FISH1CAP15 PO; +GLUC1CAP37 PO; +PREG50CA2 PO
--- NOTE | 2016-08-13 11:14 | Diagnostic Imaging Report ---
PROCEDURE: MRI lumbar spine. TECHNIQUE: Multiplanar, multisequence MRI of the lumbar spine was performed without contrast. INDICATION: Low back pain. Right lower quadrant pain. Right hip pain. COMPARISON: 12/30/2015. FINDINGS: There is grade 1 retrolisthesis of T12 over L1 and grade I anterolisthesis of L4 over L5. The vertebral body heights are preserved. There is disc desiccation at all disc levels. There is moderate disc height loss at T12/L1. There is mild bone marrow edema seen at T12/L1 vertebral bodies and pedicles appear to be centered around the disc. There is minimal T2 hyperintensity seen in the disc as well. This has increased compared to 12/30/2015 exam. There is irregularity of the endplate that has also worsened from the previous study. There is no focal suspicious mass in the marrow identified. Similar to the previous study, there is a Tarlov cyst in the upper sacral canal measuring 2.7 x 1.3 cm remodeling the canal around it. The cauda equina and conus medullaris appear grossly unremarkable. There is left convexity scoliosis centered at the L3 level. T12/L1: There is a mild disc bulge and osteophyte from the inferior endplate of T12 with no significant central canal or lateral recess stenosis. There is bilateral moderate neural foraminal stenosis. L1/2: There is a mild disc bulge and mild to moderate facet arthropathy. No central canal stenosis. Minimal stenosis of the lateral recess on the right side is seen. The left lateral recess is patent. The foramina demonstrate mild stenosis on the left and moderate to severe stenosis on the right. L2/3: There is a diffuse disc bulge and bilateral mild to moderate facet arthropathy. There is mild central canal stenosis reducing the AP dimension of the canal to 8.6 mm and there is bilateral mild lateral recess stenosis. The foramina demonstrate mild to moderate stenosis on the right side and no significant stenosis on the left. L3/4: There is a disc bulge asymmetric to the right side and bilateral moderate facet arthropathy. There is mild to moderate central canal stenosis reducing the AP dimension of the canal to 7.9 mm, without significant lateral recess stenosis. The foramina demonstrate only mild narrowing on the right side. No significant narrowing of the left. L4/5: There is grade 1 anterolisthesis. There is moderate to severe facet arthropathy. There is mild central canal stenosis reducing the AP dimension to 9 mm of the central canal. The lateral recess demonstrates mild to moderate stenosis abutting the descending L5 nerve roots. The foramina demonstrate no significant narrowing on either side. L5/S1: There is a mild disc bulge with no significant central canal stenosis. There is mild to moderate facet arthropathy. There is mild to moderate lateral recess stenosis bilaterally abutting the descending S1 nerve roots. No foraminal stenosis seen. IMPRESSION: 1. Alignment abnormalities, scoliosis, and spondylotic changes are seen. 2. There is increased bone marrow edema and endplate irregularity around T12/L1 disc. Stable grade I retrolisthesis is seen at this level. Based on the slow progression of the findings and the lack of associated fluid in the soft tissues, the marrow and endplate edema and endplate irregularity are most likely degenerative, rather than inflammatory or infectious in etiology. Correlate clinically. Dictated by: Dictated on workstation # [id number]
--- NOTE | 2016-08-13 11:42 | Diagnostic Imaging Report ---
TECHNIQUE: Multiplanar, multisequence MRI of the thoracic spine. INDICATION: Low back pain. FINDINGS: There is minimal anterior translation of T1 over T2 and minimal retrolisthesis of T12 over L1 levels. Other levels demonstrate normal alignment of the posterior spinal line and facet joints. There is mild right convexity curvature in the mid thoracic spine. In the T6 vertebral body, there is a 1.5 cm lesion with signal suggestive of hemangioma. Smaller other less prominent lesions in the thoracic spine vertebral bodies are also suggestive of hemangiomas. There is disc desiccation at all levels. At T12/L1, there is disc height loss and irregularity of the endplates with mild bone marrow edema seen. Other levels demonstrate no significant endplate abnormalities. No compression fracture at any level. There is normal caliber and signal in the spinal cord. There is a minimal disc herniation at T2/3 without spinal canal stenosis. There is also a central disc protrusion at T6/7 without central canal stenosis or cord compression. There is also a diffuse disc bulge with mild inferior osteophyte at T12/L1 level with no significant central canal stenosis. At T12/L1, there is bilateral moderate foraminal stenosis. The other foramina in the thoracic spine appear patent. IMPRESSION: There is significant endplate irregularity with mild surrounding marrow edema and slight edema in the disc at the T12/L1 level, likely degenerative in etiology. No associated collection in the epidural space or adjacent soft tissues. No spinal canal stenosis. Moderate narrowing of the neural foramina is seen at this level bilaterally, more prominent on the left side. Other mild abnormalities described above. Dictated by: Dictated on workstation # [id number]
== END ==
LOC: RAD 08:54
PROVIDERS: ATTEND Orthopaedic Surgery Orthopaedic Surgery of the Spine
DX: M47.815 Spondylosis without myelopathy or radiculopathy, thoracolumbar region (principal); M54.5 Low back pain
CPT/HCPCS: 72146; 72148

== ENCOUNTER 2016-08-17 11:26 | Outpatient (RCR) | payer MEDICARE ==
--- OUTSIDE RECORDS SUMMARY | 2016-06-20 08:09 | XMS REPORT | Continuity of Care Document ---
Author Author [facility] Organization [facility] Address Unknown Phone Unavailable Care Team Providers Care Safety Coordinator Name Role Phone Unverified, Unverified PCP Unavailable Source Comments Some departments are not documenting in the electronic medical record. If you do not see the information that you expected, contact Release of Information in the Health Information Management department at [phone] for further assistance in locating additional records.[facility] Active Allergies and Adverse Reactions No Known Allergies Current Medications Prescription Sig. Disp. Refills Start End Date Status Date naproxen sodium(+) Take 220 mg by mouth Active (ALEVE) 220 mg tablet daily. aspirin 81 mg chewable Take 81 mg by mouth Active tablet daily. bisoprolol (ZEBETA) 5 mg Take 5 mg by mouth daily. Active tablet Hgzbprlyosh-Kugjqaenk-Dyp Take by mouth daily. Active C-Mn (GLUCOSAMINE CHONDROITIN MAXSTR) 500-400 mg cap potassium chloride Take 20 mEq by mouth Active (KLOR-CON) 20 mEq packet daily. furosemide (LASIX) 20 mg Take 20 mg by mouth every Active tablet morning. meloxicam(+) (MOBIC) 15 Take 15 mg by mouth Active mg tablet daily. Cyanocobalamin (VITAMIN Take 1 Tab by mouth Active B-12) 1,000 mcg TbER daily. DOCOSAHEXANOIC ACID/EPA Take 1,200 mg by mouth Active (FISH OIL PO) daily. cholecalciferol (VITAMIN Take 400 Units by mouth Active D-3) 400 unit Tab daily. SOY ISOFLAVONE PO Take 80 mg by mouth Active daily. traMADol (ULTRAM) 50 mg Take 1 Tab by mouth every 60 Tab 3 01/23/20 Active tablet 6 hours as needed for 13 Pain. Active Problems Problem Noted Date Dry eyes 01/22/2013 Lower back pain 01/22/2013 Osteoarthritis 01/22/2013 Lower extremity edema 01/22/2013 Social History Tobacco Use Types Packs/Day Years Used Date Never Smoker Alcohol Use Drinks/Week oz/Week Comments Yes Wine one glass every three days Last Filed Vital Signs Vital Sign Reading Time Taken Blood Pressure 142/79 01/22/2013 11:25 AM CDT Pulse 61 01/22/2013 11:25 AM CDT Temperature 36.4 C (97.5 F) 01/22/2013 11:25 AM CDT Respiratory Rate 18 01/22/2013 11:25 AM CDT Height 1.549 m (5' 1") 01/22/2013 11:25 AM CDT Weight 78.835 kg (173 lb 12.8 01/22/2013 11:25 AM CDT oz) Body Mass Index 32.86 01/22/2013 11:25 AM CDT Oxygen Saturation - - Plan of Care Health Maintenance Due Date Last Done Comments Physical (Comprehensive) 1949 Exam Pertussis Vaccine 1953 Tetanus Vaccine 1959 Breast Cancer Screening 1982 Colorectal Cancer 1992 Screening Shingles Vaccine 2002 Osteoporosis Screening 2007 Prevnar/Pneumovax (#1) 2007 Influenza Vaccine 02/16/2016 Results from Last 3 Months Not on file
== END 2016-08-17 13:06 | disposition home or self-care (01) ==
PROVIDERS: ATTEND Orthopaedic Surgery
DX: Z47.89 Encounter for other orthopedic aftercare (principal)

== ENCOUNTER 2016-12-19 09:00 | Outpatient (RCR) | payer MEDICARE | END 2017-01-24 | disposition home or self-care (01) | PROVIDERS: ATTEND Nurse Practitioner Family | DX: M25.551 Pain in right hip (principal) ==

== ENCOUNTER 2017-07-04 08:46 | Outpatient (RCR) | payer MEDICARE | END 2017-07-04 09:20 | disposition home or self-care (01) | PROVIDERS: ATTEND Orthopaedic Surgery | DX: Z47.1 Aftercare following joint replacement surgery (principal); Z96.652 Presence of left artificial knee joint ==

== ENCOUNTER 2018-10-23 23:06 | Emergency (ER) | payer MEDICARE ==
[~2018-10-23] VITALS: Ht 157.5 cm; Wt 79.4 kg
[~2018-10-23 23:06] MED LIST changes: -LOSA50TA36 PO; +LOSA50TA63 PO; +METF-397 PO; -METF500T4 PO
--- OUTSIDE RECORDS SUMMARY | 2018-10-23 23:11 | XMS REPORT | Clinical Summary ---
Author Author [facility] Organization [facility] Address Unknown Phone Unavailable Care Team Providers Care Paper Products Machine Operator Name Role Phone Azeb Vaca DO Unavailable Bijal Yadav MD PCP Source Comments Some departments are not documenting in the electronic medical record. If you do not see the information that you expected, contact Release of Information in the Health Information Management department at [phone] for further assistance in locating additional records.[facility] Allergies No Known Allergies Medications End Date Status Medication Sig Dispensed Refills Start Date Active naproxen sodium(+) Take 220 mg 0 (ALEVE) 220 mg tablet by mouth daily. Active aspirin 81 mg chewable Take 81 mg by 0 tablet mouth daily. Active bisoprolol (ZEBETA) 5 mg Take 5 mg by 0 tablet mouth daily. Active Devhtzvmdzy-Pcrdyadcq-Nwm Take by 0 C-Mn (GLUCOSAMINE mouth daily. CHONDROITIN MAXSTR) 500-400 mg cap Active potassium chloride Take 20 mEq 0 (KLOR-CON) 20 mEq packet by mouth daily. Active furosemide (LASIX) 20 mg Take 20 mg by 0 tablet mouth every morning. Active meloxicam(+) (MOBIC) 15 Take 15 mg by 0 mg tablet mouth daily. Active Cyanocobalamin (VITAMIN Take 1 Tab by 0 B-12) 1,000 mcg TbER mouth daily. Active DOCOSAHEXANOIC ACID/EPA Take 1,200 mg 0 (FISH OIL PO) by mouth daily. Active cholecalciferol (VITAMIN Take 400 0 D-3) 400 unit Tab Units by mouth daily. Active SOY ISOFLAVONE PO Take 80 mg by 0 mouth daily. Active traMADol (ULTRAM) 50 mg Take 1 Tab by 60 Tab 3 tablet mouth every 6 3 hours as needed for Pain. Active NAPROXEN SOD/DIPHENHYDRAM Take by 0 HCL (ALEVE PM PO) mouth as Needed. Active losartan (COZAAR) 50 mg Take 50 mg by 0 tablet mouth daily. Active metFORMIN (GLUCOPHAGE) Take 500 mg 0 500 mg tablet by mouth twice daily with meals. Active gabapentin (NEURONTIN) Take 1 Cap by 90 Cap 3 300 mg capsule mouth every 8 7 hours. 1 tab po qhs for one week, then 1 tab po bid for one week, then 1 tab po tid Active Problems Problem Noted Date Dry eyes 01/22/2013 Lower back pain 01/22/2013 Osteoarthritis 01/22/2013 Lower extremity edema 01/22/2013 Family History Medical History Relation Name Comments Cancer Brother Prostate cancer Cancer Brother Cancer Father Cancer Mother Relation Name Status Comments Brother Alive Brother Cancer (Age 64) Daughter Alive Father Cancer (Age 85) Mother Lung disease (Age 88) Social History Date Tobacco Use Types Packs/Day Years Used Never Smoker Alcohol Use Drinks/Week oz/Week Comments Yes Wine one glass every three days Sex Assigned at Date Recorded Not on file Industry Job Start Date Occupation Not on file Not on file Not on file Travel End Travel History Travel Start No recent travel history available. Last Filed Vital Signs Time Taken Vital Sign Reading 08/21/2016 2:31 PM [employer] HEL[employer] Blood Pressure 132/104 08/21/2016 2:31 PM [employer] Pulse 76 08/21/2016 11:16 AM [employer] Temperature 36.7 C (98 F) 08/21/2016 11:16 AM [employer] Respiratory Rate 18 08/21/2016 2:31 PM [employer] Oxygen Saturation 100% - Inhaled Oxygen - Concentration 08/21/2016 2:31 PM [employer] HEL[employer] Weight 76.7 kg (169 lb) 08/21/2016 2:31 PM [employer] HEL[employer] Height 160 cm (5' 3") 08/21/2016 2:31 PM [employer] Body Mass Index 29.94 Plan of Treatment Health Maintenance Due Date Last Done Comments PHYSICAL (COMPREHENSIVE) 1949 EXAM DTAP/TDAP VACCINES (1 - 1960 Tdap) 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 For more information, please contact: [facility] [address] [facility] [place] [address]
--- OUTSIDE RECORDS SUMMARY | 2018-10-23 23:13 | XMS REPORT | CCD ---
Author Author [facility] Organization [facility] Address [address] [place] [address] Phone Care Team Providers Care Bun Panner Name Role Phone PP Unavailable CCM Unavailable Summary Purpose Interface Exchange Insurance Providers Payer name Policy type / Coverage type Covered constitution party ID Effective Begin Date Effective End Date [place] A Medicare Part B [id number] 2015 Unknown [facility] Medicare Part B [id number] 2015 Unknown Family history Mother Diagnosis Age At Onset Hypertension Unknown Heart Attack Unknown Father Diagnosis Age At Onset Colon cancer Unknown Brother Diagnosis Age At Onset Cancer Unknown Social History Social History Element Codes Description Effective Dates Marital status Unknown 12/14/2015 Number of children Unknown 1 12/14/2015 Employment Unknown Retired 12/14/[address]: 403076023 Never smoker 12/14/[address]: 206163862 Never drinks alcohol 12/14/2015 Has the patient ever used illegal drugs? Unknown Has never used illegal drugs 12/14/2015 Allergies, Adverse Reactions, Alerts Substance Reaction Codes Entered Date Inactivated Date Status * NO KNOWN DRUG ALLERGIES Unknown 12/14/2015 No Inactive Date Active Past Medical History Illness Codes Condition Status Onset Date Resolved Date Acute upper respiratory infection, unspecified ICD-9: 465.9 ICD-10: J06.9 Active 06/02/2018 Unknown Zoster without complications ICD-9: 053.9 ICD-10: B02.9 Active 02/07/2018 Unknown Corns and callosities ICD-9: 700 ICD-10: L84 Active 09/23/2017 Unknown Essential (primary) hypertension ICD-9: 401.1 ICD-10: I10 Active 06/13/2016 Unknown Other hammer toe(s) (acquired), left foot ICD-9: 735.4 ICD-10: M20.42 Active 09/23/2017 Unknown Muscle weakness (generalized) ICD-9: 728.87 ICD-10: M62.81 Active 05/14/2017 Unknown Other insomnia ICD-9: 327.09 ICD-10: G47.09 Active 05/14/2017 Unknown Right lower quadrant pain ICD-9: 789.03 ICD-10: R10.31 Active 06/27/2016 Unknown Other myositis, other site ICD-9: 729.1 ICD-10: M60.88 Active 07/12/2016 Unknown Drug induced constipation ICD-9: 564.09 ICD-10: K59.03 Active 06/27/2016 Unknown Major depressive disorder, single episode, mild ICD-9: 311 ICD-10: F32.0 Active 06/13/2016 Unknown Localized edema ICD-9 : 782.3 ICD-10: R60.0 Active 06/11/2016 Unknown Pain in right shoulder ICD-9: 719.41 ICD-10: M25.511 Active 04/08/2016 Unknown Varicose veins of bilateral lower extremities with pain ICD-9: 454.8 ICD-10: I83.813 Active 04/08/2016 Unknown Problems Condition Codes Effective Dates Condition Status Acute upper respiratory infection, unspecified ICD-9: 465.9 ICD-10: J06.9 06/02/2018 Active Zoster without complications ICD-9: 053.9 ICD-10: B02.9 02/07/2018 Active Corns and callosities ICD-9: 700 ICD-10: L84 09/23/2017 Active Essential (primary) hypertension ICD-9: 401.1 ICD-10: I10 06/13/2016 Active Other hammer toe(s) (acquired), left foot ICD-9: 735.4 ICD-10: M20.42 09/23/2017 Active Muscle weakness (generalized) ICD-9: 728.87 ICD-10: M62.81 05/14/2017 Active Other insomnia ICD-9: 327.09 ICD-10: G47.09 05/14/2017 Active Right lower quadrant pain ICD-9: 789.03 ICD-10: R10.31 06/27/2016 Active Other myositis, other site ICD-9: 729.1 ICD-10: M60.88 07/12/2016 Active Drug induced constipation ICD-9: 564.09 ICD-10: K59.03 06/27/2016 Active Major depressive disorder, single episode, mild ICD-9: 311 ICD-10: F32.0 06/13/2016 Active Localized edema ICD-9 : 782.3 ICD-10: R60.0 06/11/2016 Active Pain in right shoulder ICD-9: 719.41 ICD-10: M25.511 04/08/2016 Active Varicose veins of bilateral lower extremities with pain ICD-9: 454.8 ICD-10: I83.813 04/08/2016 Active Medications Medication Codes Instructions Start Date Stop Date Status Fill Instructions metformin 500 mg tablet RxNorm: 742113 TAKE 1 TABLET EVERY DAY 07/31/2018 07/25/2019 Active meloxicam 15 mg tablet RxNorm: 017500 TAKE 1 TABLET EVERY DAY 07/31/2018 07/25/2019 Active bisoprolol fumarate 5 mg tablet RxNorm: 657675 TAKE 1 TABLET EVERY DAY 07/31/2018 07/25/2019 Active ipratropium bromide 42 mcg (0.06 %) nasal spray RxNorm: 4489224 USE 1 SPRAY NASALLY DAILY 07/31/2018 07/25/2019 Active losartan 50 mg tablet RxNorm: 340048 TAKE 1 TABLET EVERY DAY 07/25/2019 Active Zithromax Z-Benjamin 250 mg tablet RxNorm: 881825 1 Tablet(s) PO UD 06/02/2018 06/06/2018 Inactive Flonase Allergy Relief 50 mcg/actuation nasal spray, suspension RxNorm: 4300833 2 [place] NASAL daily 06/02/20182017 Inactive acyclovir 400 mg tablet RxNorm: 430796 2 Tablet(s) PO QID 02/0702/06/2018 Inactive ipratropium bromide 42 mcg (0.06 %) nasal spray RxNorm: 6863182 1 [place] NASAL daily 02/07/2018 07/30/2018 Inactive acyclovir 400 mg tablet RxNorm: 514190 2 Tablet(s) PO QID 02/0702/16/2018 Inactive meloxicam 15 mg tablet RxNorm: 507228 TAKE 1 TABLET EVERY DAY 08/21/2017 07/30/2018 Inactive metformin 500 mg tablet RxNorm: 276475 1 Tablet(s) PO daily 07/201707/13/2018 Inactive losartan 50 mg tablet RxNorm: 501984 1 Tablet(s) PO daily 201707/13/2018 Inactive bisoprolol fumarate 5 mg tablet RxNorm: 508072 1 Tablet(s) PO daily 07/19/2017 07/13/2018 Inactive Phenergan-Codeine 6.25 mg-10 mg/5 mL syrup RxNorm: 414815 5-10 Milliliter(s) PO Q6 as needed 07/18/2017 07/17/2017 Inactive cefdinir 300 mg capsule RxNorm: 376530 1 Capsule(s) PO BID 06/201707/27/2017 Inactive Phenergan-Codeine 6.25 mg-10 mg/5 mL syrup RxNorm: 247293 5-10 Milliliter(s) PO Q6 as needed 07/18/2017 07/23/2017 Inactive cefdinir 300 mg capsule RxNorm: 773433 1 Capsule(s) PO BID 06/201707/17/2017 Inactive Zithromax Z-Benjamin 250 mg tablet RxNorm: 766199 1 Tablet(s) PO UD 07/16/2017 09/22/2017 Inactive z pack as directed ipratropium bromide 0.06 % nasal spray RxNorm: 9836762 1 [place] NASAL daily 04/08/2017 02/06/2018 Inactive ipratropium bromide 0.06 % nasal spray RxNorm: 4086094 1 [place] NASAL daily 04/05/2017 04/07/2017 Inactive metformin 500 mg tablet RxNorm: 377734 1 Tablet(s) PO daily 07/18/2017 Inactive potassium chloride ER 20 mEq tablet,extended release RxNorm: 866371 1 Tablet(s) PO daily as needed for leg cramps 10/03/2016 03/31/2017 Inactive potassium chloride 20 meq RxNorm: 1 PO daily as needed for leg cramps 10/03/2016 10/02/2016 Inactive metformin 500 mg tablet RxNorm: 661972 1 Tablet(s) PO daily 10/02/2016 Inactive losartan 50 mg tablet RxNorm: 842077 1 Tablet(s) PO daily 201607/18/2017 Inactive bisoprolol fumarate 5 mg tablet RxNorm: 887456 1 Tablet(s) PO daily 10/02/2016 07/18/2017 Inactive meloxicam 15 mg tablet RxNorm: 621027 1 Tablet(s) PO daily 03/201708/18/2017 Inactive Zithromax Z-Benjamin 250 mg tablet RxNorm: 316285 1 Tablet(s) PO UD 07/17/2016 08/16/2016 Inactive z pack as directed cyclobenzaprine 5 mg tablet RxNorm: 179941 1/2 - 1 Tablet(s) PO TID as needed muscle spasms 07/10/2016 08/08/2016 Inactive meloxicam 15 mg tablet RxNorm: 064242 1 Tablet(s) PO daily 08/23/2016 Inactive losartan 50 mg tablet RxNorm: 064459 1 Tablet(s) PO daily 201510/01/2016 Inactive losartan 50 mg tablet RxNorm: 230182 1 Tablet(s) PO daily 201501/09/2016 Inactive losartan 50 mg tablet RxNorm: 746601 1 Tablet(s) PO daily 201512/14/2015 Inactive Glucosamine-Chondroitin Complex oral RxNorm: oral No Start Date Active Low-Dose Aspirin 81 mg tablet RxNorm: 093797 1 Tablet(s) PO daily No Start Date Active Vitamin D3 1,000 unit tablet RxNorm: 276294 1 Tablet(s) PO daily No Start Date Active [place]-3 Fish Oil 300 mg-1,000 mg capsule RxNorm: 1 Capsule(s) PO TID No Start Date Active Vitamin C 500 mg tablet RxNorm: 759704 1 Tablet(s) PO daily No Start Date Active Vitamin B-12 1,000 mcg tablet RxNorm: 869747 1 Tablet(s) PO daily No Start Date Active Slow Fe oral RxNorm: 52600 oral No Start Date Active Aleve 220 mg tablet RxNorm: 323282 1 Tablet(s) PO daily No Start Date 05/13/2017 Inactive meloxicam 15 mg tablet RxNorm: 584308 1 Tablet(s) PO daily No Start Date 12/13/2015 Inactive Zithromax Z-Benjamin 250 mg tablet RxNorm: 089333 1 Tablet(s) PO UD No Start Date 07/16/2016 Inactive z pack as directed gabapentin 100 mg capsule RxNorm: 262916 1 Capsule(s) PO TID No Start Date 05/13/2017 Inactive ipratropium bromide 0.06 % nasal spray RxNorm: 2803587 [place] NASAL No Start Date 04/04/2017 Inactive bisoprolol fumarate 5 mg tablet RxNorm: 194491 1 Tablet(s) PO daily No Start Date 10/01/2016 Inactive oxycodone-acetaminophen 5 mg-325 mg tablet RxNorm: 9143864 2 Tablet(s) PO as needed No Start Date 05/13/2017 Inactive Medication Administered No Medication Administered data Immunizations Vaccine Codes Date Status Influenza CVX: 141 03/11/2018 completed Assessments Condition Codes Effective Dates Acute upper respiratory infection, unspecified ICD-10: J06.9 ICD-9: 465.9 06/02/2018 Zoster without complications ICD-10: B02.9 ICD-9: 053.9 02/07/2018 Corns and callosities ICD-10: L84 ICD-9: 700 09/23/2017 Other hammer toe(s) (acquired), left foot ICD-10: M20.42 ICD-9: 735.4 09/23/2017 Essential (primary) hypertension ICD-10: I10 ICD-9: 401.1 09/23/2017 Other insomnia ICD-10: G47.09 ICD-9: 327.09 05/14/2017 Muscle weakness (generalized) ICD-10: M62.81 ICD-9: 728.87 05/14/2017 Right lower quadrant pain ICD-10: R10.31 ICD-9: 789.03 08/08/2016 Other myositis, other site ICD-10: M60.88 ICD-9: 729.1 07/12/2016 Drug induced constipation ICD-10: K59.03 ICD-9: 564.09 06/28/2016 Major depressive disorder, single episode, mild ICD-10: F32.0 ICD-9: 311 06/14/2016 Localized edema ICD-10: R60.0 ICD-9: 782.3 06/12/2016 Pain in right shoulder ICD-10: M25.511 ICD-9: 719.41 04/09/2016 Varicose veins of bilateral lower extremities with pain ICD- 10: I83.813 ICD-9: 454.8 04/09/2016 Reason For Visit Reason For Visit Effective Dates Notes sinus congestion 06/02/2018 rash 02/07/2018 color change 09/23/2017 muscle weakness 05/14/2017 Hospital Follow Up 08/08/2016 abdominal pain 07/12/2016 abdominal pain 07/10/2016 abdominal pain 06/28/2016 depression 06/14/2016 back pain 04/09/2016 back pain 01/10/2016 pain, generalized 12/14/2015 Results Observation Observation Code Item Item Code Result Date Magnesium Ord90 Mag 1.8 mg/dL 05/15/2017 Comp Metabolic Kwc786 NA 137 mEq/L 05/15/2017 Comp Metabolic Tpk392 K 4.5 mEq/L 05/15/2017 Comp Metabolic Vix793 CL 102 mEq/L 05/15/2017 Comp Metabolic Tuw404 CO2 28.0 mEq/L 05/15/2017 Comp Metabolic Itt841 ANION GAP 12 05/15/2017 Comp Metabolic Tau079 GLUCOSE 103 mg/dL 05/15/2017 Comp Metabolic Wxs895 Creat 0.9 mg/dL 05/15/2017 Comp Metabolic Wak226 eGFR 62 ml/min/1.73m2 05/15/2017 Comp Metabolic Kcs424 BUN 25 mg/dL 05/15/2017 Comp Metabolic Fvc820 B/C Ratio 26.9 Ratio 05/15/2017 Comp Metabolic Ilw599 CALCIUM 9.7 mg/dL 05/15/2017 Comp Metabolic Pte873 ALK PHOS 90 U/L 05/15/2017 Comp Metabolic Tyn726 AST(SGOT) 15 U/L 05/15/2017 Comp Metabolic Xul882 ALT(SGPT) 10 U/L 05/15/2017 Comp Metabolic Wwl693 BILI T 0.4 mg/dL 05/15/2017 Comp Metabolic Tst996 ALBUMIN 3.7 g/dL 05/15/2017 Comp Metabolic Avy539 TPRO 5.9 g/dL 05/15/2017 Comp Metabolic Vji360 GLOB 2.2 g/dL 05/15/2017 Comp Metabolic Jaq935 A/G Ratio 1.7 Ratio 05/15/2017 Comp Metabolic Vrx641 Osmo 278 mOsmo 05/15/2017 Cbc With Differential Ord2 WBC 6.32 K/ul 05/15/2017 Cbc With Differential Ord2 RBC 4.19 M/ul 05/15/2017 Cbc With Differential Ord2 HGB 11.4 g/dl 05/15/2017 Cbc With Differential Ord2 HCT 35.8 % 05/15/2017 Cbc With Differential Ord2 Neut% 51.3 % 05/15/2017 Cbc With Differential Ord2 MCV 85.4 fl 05/15/2017 Cbc With Differential Ord2 Lymph% 27.5 % 05/15/2017 Cbc With Differential Ord2 MCH 27.2 pg 05/15/2017 Cbc With Differential Ord2 [place]% 12.2 % 05/15/2017 Cbc With Differential Ord2 MCHC 31.8 pg 05/15/2017 Cbc With Differential Ord2 Eos% 8.7 % 05/15/2017 Cbc With Differential Ord2 PLT 353 K/ul 05/15/2017 Cbc With Differential Ord2 Baso% 0.3 % 05/15/2017 Cbc With Differential Ord2 RDW 14.4 % 05/15/2017 Cbc With Differential Ord2 Neut ABS# 3.24 K/ul 05/15/2017 Cbc With Differential Ord2 Lymph ABS# 1.74 K/ul 05/15/2017 Cbc With Differential Ord2 [place] ABS# 0.8 K/ul 05/15/2017 Cbc With Differential Ord2 Eos ABS# 0.6 K/ul 05/15/2017 Cbc With Differential Ord2 Baso ABS# 0.0 K/ul 05/15/2017 Lipid Ord30 CHOL 218 mg/dL 05/15/2017 Lipid Ord30 HDL 53.0 mg/dl 05/15/2017 Lipid Ord30 TRIG 103 mg/dL 05/15/2017 Lipid Ord30 LDL 144 mg/dL 05/15/2017 Lipid Ord30 C/HDL 4.1 Ratio 05/15/2017 Lipid Ord30 CHOL 231 mg/dL 06/13/2016 Lipid Ord30 HDL 65.0 mg/dl 06/13/2016 Lipid Ord30 TRIG 108 mg/dL 06/13/2016 Lipid Ord30 LDL 144 mg/dL 06/13/2016 Lipid Ord30 C/HDL 3.6 Ratio 06/13/2016 Cbc With Differential Ord2 WBC 8.19 K/ul 06/13/2016 Cbc With Differential Ord2 RBC 4.89 M/ul 06/13/2016 Cbc With Differential Ord2 HGB 13.5 g/dl 06/13/2016 Cbc With Differential Ord2 HCT 41.2 % 06/13/2016 Cbc With Differential Ord2 Neut% 67.5 % 06/13/2016 Cbc With Differential Ord2 MCV 84.3 fl 06/13/2016 Cbc With Differential Ord2 Lymph% 18.1 % 06/13/2016 Cbc With Differential Ord2 MCH 27.6 pg 06/13/2016 Cbc With Differential Ord2 [place]% 8.3 % 06/13/2016 Cbc With Differential Ord2 MCHC 32.8 pg 06/13/2016 Cbc With Differential Ord2 Eos% 5.7 % 06/13/2016 Cbc With Differential Ord2 PLT 334 K/ul 06/13/2016 Cbc With Differential Ord2 Baso% 0.4 % 06/13/2016 Cbc With Differential Ord2 RDW 14.5 % 06/13/2016 Cbc With Differential Ord2 Neut ABS# 5.53 K/ul 06/13/2016 Cbc With Differential Ord2 Lymph ABS# 1.48 K/ul 06/13/2016 Cbc With Differential Ord2 [place] ABS# 0.7 K/ul 06/13/2016 Cbc With Differential Ord2 Eos ABS# 0.5 K/ul 06/13/2016 Cbc With Differential Ord2 Baso ABS# 0.0 K/ul 06/13/2016 Tsh Ord6 hTSH II 1.80 uIU/mL 06/13/2016 Comp Metabolic Rsj696 NA 136 mEq/L 06/13/2016 Comp Metabolic Nry853 K 4.5 mEq/L 06/13/2016 Comp Metabolic Rwl420 CL 100 mEq/L 06/13/2016 Comp Metabolic Gkr035 CO2 29.0 mEq/L 06/13/2016 Comp Metabolic Llr136 ANION GAP 12 06/13/2016 Comp Metabolic Oci440 GLUCOSE 106 mg/dL 06/13/2016 Comp Metabolic Rrl186 Creat 0.8 mg/dL 06/13/2016 Comp Metabolic Ooy909 eGFR 77 ml/min/1.73m2 06/13/2016 Comp Metabolic Jmc395 BUN 19 mg/dL 06/13/2016 Comp Metabolic Qsu916 B/C Ratio 24.4 Ratio 06/13/2016 Comp Metabolic Szx846 CALCIUM 10.1 mg/dL 06/13/2016 Comp Metabolic Omz159 ALK PHOS 102 U/L 06/13/2016 Comp Metabolic Jyf810 AST(SGOT) 18 U/L 06/13/2016 Comp Metabolic Lea307 ALT(SGPT) 15 U/L 06/13/2016 Comp Metabolic Cyq528 BILI T 0.6 mg/dL 06/13/2016 Comp Metabolic Gkr886 ALBUMIN 4.1 g/dL 06/13/2016 Comp Metabolic Har772 TPRO 6.7 g/dL 06/13/2016 Comp Metabolic Hoh852 GLOB 2.6 g/dL 06/13/2016 Comp Metabolic Ber087 A/G Ratio 1.6 Ratio 06/13/2016 Comp Metabolic Lmu682 Osmo 275 mOsmo 06/13/2016 Review of Systems System Result Effective Dates Constitutional recent illness 06/02/2018 Constitutional No anorexia 06/02/2018 Constitutional No night sweats 2017 Constitutional No chills 06/02/2018 Constitutional No diaphoresis 06/02/2018 Constitutional fatigue 06/02/2018 Constitutional No fever 06/02/2018 Constitutional No insomnia 06/02/2018 Constitutional No malaise 06/02/2018 Constitutional No weight loss 06/02/2018 Constitutional No weight gain 06/02/2018 Eyes No eye discharge 06/02/2018 Eyes No eye erythema 06/02/2018 Ears/Nose/Throat/Neck No dizziness 2017 Ears/Nose/Throat/Neck nasal allergies Ears/Nose/Throat/Neck nasal discharge Ears/Nose/Throat/Neck No otalgia 2017 Ears/Nose/Throat/Neck sinus congestion Ears/Nose/Throat/Neck No sore throat Cardiovascular No chest pain/pressure Respiratory cough 06/02/2018 Respiratory No productive sputum 2017 Gastrointestinal No vomiting 06/02/2018 Gastrointestinal No nausea 06/02/2018 Gastrointestinal No diarrhea 06/02/2018 Genitourinary/Nephrology No dysuria 06/02 Musculoskeletal No joint complaint 2017 Dermatologic No rash 06/02/2018 Neurologic No alteration of consciousness 06/02/2018 Constitutional No recent illness 2017 Constitutional No anorexia 02/07/2018 Constitutional No night sweats 2017 Constitutional No chills 02/07/2018 Constitutional No diaphoresis 02/07/2018 Constitutional No fatigue 02/07/2018 Constitutional No fever 02/07/2018 Constitutional No insomnia 02/07/2018 Constitutional No malaise 02/07/2018 Constitutional No weight loss 02/07/2018 Constitutional No weight gain 02/07/2018 Dermatologic rash 02/07/2018 Constitutional No recent illness 2017 Constitutional No anorexia 09/23/2017 Constitutional No night sweats 2017 Constitutional No chills 09/23/2017 Constitutional No diaphoresis 09/23/2017 Constitutional fatigue 09/23/2017 Constitutional No insomnia 09/23/2017 Constitutional malaise 09/23/2017 Eyes No eye discharge 09/23/2017 Eyes No eye erythema 09/23/2017 Ears/Nose/Throat/Neck No dizziness 2017 Ears/Nose/Throat/Neck No headache 2017 Ears/Nose/Throat/Neck nasal allergies 02/2018 Ears/Nose/Throat/Neck nasal discharge 02/2018 Cardiovascular No chest pain/pressure 02/2018 Cardiovascular No dyspnea 09/23/2017 Respiratory No cough 09/23/2017 Gastrointestinal No abdominal pain 2017 Genitourinary/Nephrology No dysuria 09/23 Musculoskeletal joint complaint 2017 Musculoskeletal shoulder pain 09/23/2017 Dermatologic No rash 09/23/2017 Neurologic No alteration of consciousness 09/23/2017 Psychiatric depression 09/23/2017 Endocrine No dry or coarse skin 2017 Constitutional No recent illness 2016 Constitutional No anorexia 05/14/2017 Constitutional No night sweats 2016 Constitutional No chills 05/14/2017 Constitutional No diaphoresis 05/14/2017 Constitutional fatigue 05/14/2017 Constitutional No insomnia 05/14/2017 Constitutional malaise 05/14/2017 Eyes No eye discharge 05/14/2017 Eyes No eye erythema 05/14/2017 Ears/Nose/Throat/Neck No dizziness 2016 Ears/Nose/Throat/Neck No headache 2016 Ears/Nose/Throat/Neck nasal allergies Ears/Nose/Throat/Neck nasal discharge Cardiovascular No chest pain/pressure Cardiovascular No dyspnea 05/14/2017 Respiratory No cough 05/14/2017 Gastrointestinal No abdominal pain 2016 Genitourinary/Nephrology No dysuria 05/14 Musculoskeletal joint complaint 2016 Musculoskeletal shoulder pain 05/14/2017 Dermatologic No rash 05/14/2017 Neurologic No alteration of consciousness 05/14/2017 Psychiatric depression 05/14/2017 Endocrine No dry or coarse skin 2016 Constitutional No recent illness 2016 Constitutional No chills 08/08/2016 Constitutional No diaphoresis 08/08/2016 Constitutional fatigue 08/08/2016 Constitutional No fever 08/08/2016 Constitutional No insomnia 08/08/2016 Cardiovascular No chest pain/pressure Gastrointestinal abdominal pain 2016 Gastrointestinal No vomiting 08/08/2016 Constitutional No recent illness 2016 Constitutional No chills 07/12/2016 Constitutional No diaphoresis 07/12/2016 Constitutional fatigue 07/12/2016 Constitutional No fever 07/12/2016 Constitutional No insomnia 07/12/2016 Cardiovascular No chest pain/pressure Gastrointestinal abdominal pain 2016 Gastrointestinal No vomiting 07/12/2016 Constitutional No recent illness 2016 Constitutional No chills 07/10/2016 Constitutional No diaphoresis 07/10/2016 Constitutional fatigue 07/10/2016 Constitutional No fever 07/10/2016 Constitutional No insomnia 07/10/2016 Eyes No eye discharge 07/10/2016 Eyes No eye erythema 07/10/2016 Ears/Nose/Throat/Neck No dizziness 2016 Ears/Nose/Throat/Neck No headache 2016 Cardiovascular No chest pain/pressure Cardiovascular No dyspnea 07/10/2016 Respiratory No cough 07/10/2016 Gastrointestinal abdominal pain 2016 Musculoskeletal joint complaint 2016 Musculoskeletal shoulder pain 07/10/2016 Dermatologic No rash 07/10/2016 Neurologic No alteration of consciousness 07/10/2016 Psychiatric depression 07/10/2016 Endocrine No dry or coarse skin 2016 Gastrointestinal No gastroesophageal reflux 07/10/2016 Gastrointestinal No nausea 07/10/2016 Gastrointestinal No vomiting 07/10/2016 Gastrointestinal No constipation 2016 Gastrointestinal No diarrhea 07/10/2016 Constitutional No recent illness 2016 Constitutional No anorexia 06/28/2016 Constitutional No night sweats 2016 Constitutional No chills 06/28/2016 Constitutional No diaphoresis 06/28/2016 Constitutional No fatigue 06/28/2016 Constitutional No fever 06/28/2016 Constitutional No insomnia 06/28/2016 Constitutional No malaise 06/28/2016 Constitutional No weight loss 06/28/2016 Constitutional No weight gain 06/28/2016 Gastrointestinal abdominal pain 2016 Gastrointestinal constipation 06/28/2016 Gastrointestinal No diarrhea 06/28/2016 Gastrointestinal No vomiting 06/28/2016 Gastrointestinal No nausea 06/28/2016 Gastrointestinal No gastroesophageal reflux 06/28/2016 Genitourinary/Nephrology No dysuria 06/28 Genitourinary/Nephrology No urinary frequency 06/28/2016 Genitourinary/Nephrology No urinary urgency 06/28/2016 Dermatologic No rash 06/28/2016 Dermatologic No sores 06/28/2016 Respiratory No cough 06/28/2016 Cardiovascular No chest pain/pressure 05/2017 Neurologic No alteration of consciousness 06/28/2016 Musculoskeletal joint complaint 2015 Musculoskeletal shoulder pain 06/14/2016 Constitutional No recent illness 2015 Constitutional No anorexia 06/14/2016 Constitutional No night sweats 2015 Constitutional No chills 06/14/2016 Constitutional No diaphoresis 06/14/2016 Constitutional No fatigue 06/14/2016 Constitutional No fever 06/14/2016 Constitutional No insomnia 06/14/2016 Constitutional No malaise 06/14/2016 Constitutional No weight loss 06/14/2016 Constitutional No weight gain 06/14/2016 Psychiatric depression 06/14/2016 Eyes No eye discharge 06/14/2016 Eyes No eye erythema 06/14/2016 Ears/Nose/Throat/Neck No dizziness 2015 Ears/Nose/Throat/Neck No headache 2015 Cardiovascular No chest pain/pressure Cardiovascular No dyspnea 06/14/2016 Respiratory No cough 06/14/2016 Gastrointestinal No abdominal pain 2015 Genitourinary/Nephrology No dysuria 06/14 Dermatologic No rash 06/14/2016 Neurologic No alteration of consciousness 06/14/2016 Endocrine No dry or coarse skin 2015 Ears/Nose/Throat/Neck nasal allergies Ears/Nose/Throat/Neck nasal discharge Constitutional No recent illness 2015 Constitutional No chills 04/09/2016 Constitutional fatigue 04/09/2016 Constitutional No fever 04/09/2016 Constitutional No insomnia 04/09/2016 Constitutional No malaise 04/09/2016 Ears/Nose/Throat/Neck No dizziness 2015 Ears/Nose/Throat/Neck No headache 2015 Ears/Nose/Throat/Neck No nasal allergies 04/09/2016 Ears/Nose/Throat/Neck No sore throat Cardiovascular No chest pain/pressure Cardiovascular No dyspnea 04/09/2016 Cardiovascular edema 04/09/2016 Cardiovascular No exercise intolerance Cardiovascular fatigue 04/09/2016 Cardiovascular No near-syncope/dizziness 04/09/2016 Respiratory No chest tightness 2015 Respiratory No cough 04/09/2016 Respiratory No dyspnea 04/09/2016 Respiratory pedal edema 04/09/2016 Gastrointestinal No abdominal pain 2015 Gastrointestinal No constipation 2015 Gastrointestinal No diarrhea 04/09/2016 Gastrointestinal No gastroesophageal reflux 04/09/2016 Gastrointestinal No nausea 04/09/2016 Gastrointestinal No vomiting 04/09/2016 Genitourinary/Nephrology No dysuria 04/09 Genitourinary/Nephrology No nocturia Genitourinary/Nephrology No urinary incontinence 04/09/2016 Musculoskeletal stiffness 04/09/2016 Musculoskeletal No swelling 04/09/2016 Musculoskeletal joint complaint 2015 Musculoskeletal No muscle weakness 2015 Musculoskeletal No myalgias 04/09/2016 Dermatologic No rash 04/09/2016 Dermatologic No sores 04/09/2016 Neurologic No dizziness 04/09/2016 Neurologic No headache 04/09/2016 Neurologic No syncope 04/09/2016 Psychiatric No anxiety 04/09/2016 Psychiatric No depression 04/09/2016 Musculoskeletal shoulder pain 04/09/2016 Constitutional No recent illness 2015 Constitutional No chills 01/10/2016 Constitutional fatigue 01/10/2016 Constitutional No fever 01/10/2016 Constitutional No insomnia 01/10/2016 Constitutional No malaise 01/10/2016 Eyes No blindness 01/10/2016 Eyes No vision change 01/10/2016 Ears/Nose/Throat/Neck No dental pain Ears/Nose/Throat/Neck No dizziness 2015 Ears/Nose/Throat/Neck No dysphagia 2015 Ears/Nose/Throat/Neck No headache 2015 Ears/Nose/Throat/Neck No hearing loss Ears/Nose/Throat/Neck No nasal allergies 01/10/2016 Ears/Nose/Throat/Neck No sore throat Ears/Nose/Throat/Neck No postnasal drip 01/10/2016 Ears/Nose/Throat/Neck No sinus congestion 01/10/2016 Cardiovascular No chest pain/pressure Cardiovascular No dyspnea 01/10/2016 Cardiovascular edema 01/10/2016 Cardiovascular No exercise intolerance Cardiovascular fatigue 01/10/2016 Cardiovascular No near-syncope/dizziness 01/10/2016 Respiratory No chest tightness 2015 Respiratory No cough 01/10/2016 Respiratory No dyspnea 01/10/2016 Respiratory pedal edema 01/10/2016 Gastrointestinal No abdominal pain 2015 Gastrointestinal No constipation 2015 Gastrointestinal No diarrhea 01/10/2016 Gastrointestinal No gastroesophageal reflux 01/10/2016 Gastrointestinal No nausea 01/10/2016 Gastrointestinal No vomiting 01/10/2016 Genitourinary/Nephrology No dysuria 01/09 Genitourinary/Nephrology No nocturia Genitourinary/Nephrology No urinary incontinence 01/10/2016 Musculoskeletal stiffness 01/10/2016 Musculoskeletal No swelling 01/10/2016 Musculoskeletal joint complaint 2015 Musculoskeletal No muscle weakness 2015 Musculoskeletal No myalgias 01/10/2016 Dermatologic No rash 01/10/2016 Dermatologic No sores 01/10/2016 Dermatologic No scar 01/10/2016 Neurologic No dizziness 01/10/2016 Neurologic No headache 01/10/2016 Neurologic No neck pain 01/10/2016 Neurologic No syncope 01/10/2016 Psychiatric No anxiety 01/10/2016 Psychiatric No depression 01/10/2016 Musculoskeletal back pain 01/10/2016 Constitutional No recent illness 2015 Constitutional No chills 12/14/2015 Constitutional fatigue 12/14/2015 Constitutional No fever 12/14/2015 Constitutional No insomnia 12/14/2015 Constitutional No malaise 12/14/2015 Eyes No blindness 12/14/2015 Eyes No vision change 12/14/2015 Ears/Nose/Throat/Neck No dental pain Ears/Nose/Throat/Neck No dizziness 2015 Ears/Nose/Throat/Neck No dysphagia 2015 Ears/Nose/Throat/Neck No headache 2015 Ears/Nose/Throat/Neck No hearing loss Ears/Nose/Throat/Neck No nasal allergies 12/14/2015 Ears/Nose/Throat/Neck No sore throat Ears/Nose/Throat/Neck No postnasal drip 12/14/2015 Ears/Nose/Throat/Neck No sinus congestion 12/14/2015 Cardiovascular No chest pain/pressure Cardiovascular No dyspnea 12/14/2015 Cardiovascular edema 12/14/2015 Cardiovascular No exercise intolerance Cardiovascular fatigue 12/14/2015 Cardiovascular No near-syncope/dizziness 12/14/2015 Respiratory No chest tightness 2015 Respiratory No cough 12/14/2015 Respiratory No dyspnea 12/14/2015 Respiratory pedal edema 12/14/2015 Gastrointestinal No abdominal pain 2015 Gastrointestinal No constipation 2015 Gastrointestinal No diarrhea 12/14/2015 Gastrointestinal No gastroesophageal reflux 12/14/2015 Gastrointestinal No nausea 12/14/2015 Gastrointestinal No vomiting 12/14/2015 Genitourinary/Nephrology No dysuria 12/13 Genitourinary/Nephrology No nocturia Genitourinary/Nephrology No urinary incontinence 12/14/2015 Musculoskeletal stiffness 12/14/2015 Musculoskeletal No swelling 12/14/2015 Musculoskeletal No muscle weakness 2015 Musculoskeletal No myalgias 12/14/2015 Dermatologic No rash 12/14/2015 Dermatologic No sores 12/14/2015 Dermatologic No scar 12/14/2015 Neurologic No dizziness 12/14/2015 Neurologic No headache 12/14/2015 Neurologic No neck pain 12/14/2015 Neurologic No syncope 12/14/2015 Psychiatric No anxiety 12/14/2015 Psychiatric No depression 12/14/2015 Musculoskeletal joint complaint 2015 Physical Exam Exam Name System Name Item Name Status Result Effective Dates Notes Full Exam - ENT Constitutional general appearance Overall: well nourished 06/02/2018 None Full Exam - ENT Constitutional general appearance Overall: well developed 06/02/2018 None Full Exam - ENT Constitutional general appearance Overall: in no acute distress 06/02/2018 None Full Exam - ENT Neurologic orientation Overall: oriented to person, place and time 06/02/2018 None Full Exam - ENT Integument inspection of skin Overall: no rash, lesions 06/02/2018 None Full Exam - ENT Lymphatic palpation of lymph nodes Overall: anterior cervical chain benign 06/02/2018 None Full Exam - ENT Lymphatic palpation of lymph nodes Overall: posterior cervical chain benign 06/02/2018 None Full Exam - ENT Cardiovascular auscultation of heart Overall: regular rate 06/02/2018 None Full Exam - ENT Cardiovascular auscultation of heart Overall: normal heart sounds 06/02/2018 None Full Exam - ENT Respiratory inspection Overall: no retractions 06/02/2018 None Full Exam - ENT Respiratory inspection Overall: normal rate None Full Exam - ENT Respiratory auscultation Overall: breath sounds clear bilaterally 06/02/2018 None Full Exam - ENT Face and Head palpation Overall: no sinus tenderness 06/02/2018 None Full Exam - ENT Ears/Nose/Throat otoscopic exam Overall: external auditory canals normal 06/02/2018 None Full Exam - ENT Ears/Nose/Throat otoscopic exam Overall: tympanic membranes normal 06/02/2018 None Full Exam - ENT Ears/Nose/Throat oropharynx Overall: oral mucosa clear 06/02/2018 None Full Exam - Dermatology Constitutional general appearance Overall: well nourished 02/07/2018 None Full Exam - Dermatology Constitutional general appearance Overall: well developed 02/07/2018 None Full Exam - Dermatology Constitutional general appearance Overall: in no acute distress 02/07/2018 None Full Exam - Dermatology Constitutional general appearance Overall: of normal body habitus 02/07/2018 None Full Exam - Dermatology Constitutional general appearance Overall: well groomed 02/07/2018 None Full Exam - Dermatology Psychiatric orientation Overall: oriented to person, place and time 02/07/2018 None Full Exam - Dermatology Integument insp & palp - chest/axillae Lesion: vesicle 02/07/2018 None Full Exam - Dermatology Integument insp & palp - chest/axillae Location: on the left breast 02/07/2018 None Full Exam - General 1994 Constitutional general appearance Development: well developed 09/23/2017 None Full Exam - General 1994 Constitutional general appearance Development: appears stated age 0409/23/2017 None Full Exam - General 1994 Constitutional general appearance Hygiene/Attention to Grooming: good hygiene 09/23/2017 None Full Exam - General 1994 Eyes conjunctiva /eyelids Overall: conjunctiva clear 09/23/2017 None Full Exam - General 1994 Eyes conjunctiva /eyelids Overall: cornea clear 09/23/2017 None Full Exam - General 1994 Eyes conjunctiva /eyelids Overall: eyelids normal 09/23/2017 None Full Exam - General 1994 Eyes pupils and irises Overall: pupils equal, round, reactive to light and accomodation 09/23/2017 None Full Exam - General 1994 Ears/Nose/Throat lips/teeth/gingiva Overall: benign lips 09/23/2017 None Full Exam - General 1994 Ears/Nose/Throat lips/teeth/gingiva Overall: normal dentition 09/23/2017 None Full Exam - General 1994 Ears/Nose/Throat oral cavity/pharynx/larynx Overall: oral mucosa clear 09/23/2017 None Full Exam - General 1994 Ears/Nose/Throat oral cavity/pharynx/larynx Overall: oropharyngeal mucosa clear 09/23/2017 None Full Exam - General 1994 Ears/Nose/Throat oral cavity/pharynx/larynx Overall: hypopharynx benign 09/23/2017 None Full Exam - General 1994 Ears/Nose/Throat oral cavity/pharynx/larynx Overall: no masses 09/23/2017 None Full Exam - General 1994 Respiratory auscultation Overall: breath sounds clear bilaterally 09/23/2017 None Full Exam - General 1994 Respiratory respiratory effort/rhythm Overall: no retractions 09/23/2017 None Full Exam - General 1994 Respiratory respiratory effort/rhythm Overall: normal rate 09/23/2017 None Full Exam - General 1994 Cardiovascular extremities Overall: no clubbing 09/23/2017 None Full Exam - General 1994 Cardiovascular auscultation of heart Overall: regular rate 09/23/2017 None Full Exam - General 1994 Cardiovascular auscultation of heart Overall: normal heart sounds 09/23/2017 None Full Exam - General 1994 Musculoskeletal spine, ribs and pelvis Overall: spine benign 09/23/2017 None Full Exam - General 1994 Musculoskeletal spine, ribs and pelvis Overall: sacroiliac joint benign 09/23/2017 None Full Exam - General 1994 Musculoskeletal spine, ribs and pelvis Overall: good posture 09/23/2017 None Full Exam - General 1994 Musculoskeletal head and neck Overall: head atraumatic 09/23/2017 None Full Exam - General 1994 Musculoskeletal head and neck Overall: cervical spine benign 09/23/2017 None Full Exam - General 1994 Psychiatric orientation/consciousness Overall: oriented to person, place and time 09/23/2017 None Full Exam - General 1994 Psychiatric mood and affect Overall: normal mood and affect 09/23/2017 None Full Exam - General 1994 Integument inspection of skin Location: left foot 09/23/2017 2nd digit medially hammer toe with callus - debrided with scalpel Full Exam - General 1994 Constitutional general appearance Development: well developed 05/14/2017 None Full Exam - General 1994 Constitutional general appearance Development: appears stated age 1105/14/2017 None Full Exam - General 1994 Constitutional general appearance Hygiene/Attention to Grooming: good hygiene 05/14/2017 None Full Exam - General 1994 Eyes conjunctiva /eyelids Overall: conjunctiva clear 05/14/2017 None Full Exam - General 1994 Eyes conjunctiva /eyelids Overall: cornea clear 05/14/2017 None Full Exam - General 1994 Eyes conjunctiva /eyelids Overall: eyelids normal 05/14/2017 None Full Exam - General 1994 Eyes pupils and irises Overall: pupils equal, round, reactive to light and accomodation 05/14/2017 None Full Exam - General 1994 Ears/Nose/Throat otoscopic exam Overall: external auditory canals clear 05/14/2017 None Full Exam - General 1994 Ears/Nose/Throat otoscopic exam Overall: tympanic membranes clear 05/14/2017 None Full Exam - General 1994 Ears/Nose/Throat lips/teeth/gingiva Overall: benign lips 05/14/2017 None Full Exam - General 1994 Ears/Nose/Throat lips/teeth/gingiva Overall: normal dentition 05/14/2017 None Full Exam - General 1994 Ears/Nose/Throat oral cavity/pharynx/larynx Overall: oral mucosa clear 05/14/2017 None Full Exam - General 1994 Ears/Nose/Throat oral cavity/pharynx/larynx Overall: oropharyngeal mucosa clear 05/14/2017 None Full Exam - General 1994 Ears/Nose/Throat oral cavity/pharynx/larynx Overall: hypopharynx benign 05/14/2017 None Full Exam - General 1994 Ears/Nose/Throat oral cavity/pharynx/larynx Overall: no masses 05/14/2017 None Full Exam - General 1994 Respiratory auscultation Overall: breath sounds clear bilaterally 05/14/2017 None Full Exam - General 1994 Respiratory respiratory effort/rhythm Overall: no retractions 05/14/2017 None Full Exam - General 1994 Respiratory respiratory effort/rhythm Overall: normal rate 05/14/2017 None Full Exam - General 1994 Cardiovascular extremities Overall: no clubbing 05/14/2017 None Full Exam - General 1994 Cardiovascular auscultation of heart Overall: regular rate 05/14/2017 None Full Exam - General 1994 Cardiovascular auscultation of heart Overall: normal heart sounds 05/14/2017 None Full Exam - General 1994 Abdomen abdominal exam Overall: no tenderness 05/14/2017 None Full Exam - General 1994 Abdomen abdominal exam Overall: normal bowel sounds 05/14/2017 None Full Exam - General 1994 Lymphatic neck nodes Overall: anterior cervical chain benign 05/14/2017 None Full Exam - General 1994 Lymphatic neck nodes Overall: posterior cervical chain benign 05/14/2017 None Full Exam - General 1994 Musculoskeletal spine, ribs and pelvis Overall: spine benign 05/14/2017 None Full Exam - General 1994 Musculoskeletal spine, ribs and pelvis Overall: sacroiliac joint benign 05/14/2017 None Full Exam - General 1994 Musculoskeletal spine, ribs and pelvis Overall: good posture 05/14/2017 None Full Exam - General 1994 Musculoskeletal head and neck Overall: head atraumatic 05/14/2017 None Full Exam - General 1994 Musculoskeletal head and neck Overall: cervical spine benign 05/14/2017 None Full Exam - General 1994 Psychiatric orientation/consciousness Overall: oriented to person, place and time 05/14/2017 None Full Exam - General 1994 Psychiatric mood and affect Overall: normal mood and affect 05/14/2017 None Full Exam - General 1994 Constitutional general appearance Development: well developed 08/08/2016 None Full Exam - General 1994 Constitutional general appearance Development: appears stated age 0208/08/2016 None Full Exam - General 1994 Constitutional general appearance Hygiene/Attention to Grooming: good hygiene 08/08/2016 None Full Exam - General 1994 Eyes conjunctiva /eyelids Overall: conjunctiva clear 08/08/2016 None Full Exam - General 1994 Eyes conjunctiva /eyelids Overall: cornea clear 08/08/2016 None Full Exam - General 1994 Eyes conjunctiva /eyelids Overall: eyelids normal 08/08/2016 None Full Exam - General 1994 Eyes pupils and irises Overall: pupils equal, round, reactive to light and accomodation 08/08/2016 None Full Exam - General 1994 Respiratory auscultation Overall: breath sounds clear bilaterally 08/08/2016 None Full Exam - General 1994 Respiratory respiratory effort/rhythm Overall: no retractions 08/08/2016 None Full Exam - General 1994 Respiratory respiratory effort/rhythm Overall: normal rate 08/08/2016 None Full Exam - General 1994 Cardiovascular extremities Overall: no clubbing 08/08/2016 None Full Exam - General 1994 Cardiovascular auscultation of heart Overall: regular rate 08/08/2016 None Full Exam - General 1994 Cardiovascular auscultation of heart Overall: normal heart sounds 08/08/2016 None Full Exam - General 1994 Abdomen abdominal exam Overall: normal bowel sounds 08/08/2016 None Full Exam - General 1994 Abdomen abdominal exam Upper quadrant: non-tender to palpation 08/08/2016 None Full Exam - General 1994 Abdomen abdominal exam Lower quadrant: tender to palpation 08/08/2016 acutely ttp over lower right abdomen above iliac crest Full Exam - General 1994 Neurologic cranial nerves Overall: crainial nerves 2 - 12 grossly intact 08/08/2016 None Full Exam - General 1994 Psychiatric orientation/consciousness Overall: oriented to person, place and time 08/08/2016 None Full Exam - General 1994 Psychiatric mood and affect Overall: normal mood and affect 08/08/2016 None Full Exam - General 1994 Constitutional general appearance Development: well developed 07/12/2016 None Full Exam - General 1994 Constitutional general appearance Development: appears stated age 0107/12/2016 None Full Exam - General 1994 Constitutional general appearance Hygiene/Attention to Grooming: good hygiene 07/12/2016 None Full Exam - General 1994 Eyes conjunctiva /eyelids Overall: conjunctiva clear 07/12/2016 None Full Exam - General 1994 Eyes conjunctiva /eyelids Overall: cornea clear 07/12/2016 None Full Exam - General 1994 Eyes conjunctiva /eyelids Overall: eyelids normal 07/12/2016 None Full Exam - General 1994 Eyes pupils and irises Overall: pupils equal, round, reactive to light and accomodation 07/12/2016 None Full Exam - General 1994 Respiratory auscultation Overall: breath sounds clear bilaterally 07/12/2016 None Full Exam - General 1994 Respiratory respiratory effort/rhythm Overall: no retractions 07/12/2016 None Full Exam - General 1994 Respiratory respiratory effort/rhythm Overall: normal rate 07/12/2016 None Full Exam - General 1994 Cardiovascular extremities Overall: no clubbing 07/12/2016 None Full Exam - General 1994 Cardiovascular auscultation of heart Overall: regular rate 07/12/2016 None Full Exam - General 1994 Cardiovascular auscultation of heart Overall: normal heart sounds 07/12/2016 None Full Exam - General 1994 Abdomen abdominal exam Overall: normal bowel sounds 07/12/2016 None Full Exam - General 1994 Abdomen abdominal exam Upper quadrant: non-tender to palpation 07/12/2016 None Full Exam - General 1994 Abdomen abdominal exam Lower quadrant: tender to palpation 07/12/2016 acutely ttp over lower right abdomen above iliac crest Full Exam - General 1994 Neurologic cranial nerves Overall: crainial nerves 2 - 12 grossly intact 07/12/2016 None Full Exam - General 1994 Psychiatric orientation/consciousness Overall: oriented to person, place and time 07/12/2016 None Full Exam - General 1994 Psychiatric mood and affect Overall: normal mood and affect 07/12/2016 None Full Exam - General 1994 Constitutional general appearance Development: well developed 07/10/2016 None Full Exam - General 1994 Constitutional general appearance Development: appears stated age 0107/10/2016 None Full Exam - General 1994 Constitutional general appearance Hygiene/Attention to Grooming: good hygiene 07/10/2016 None Full Exam - General 1994 Eyes conjunctiva /eyelids Overall: conjunctiva clear 07/10/2016 None Full Exam - General 1994 Eyes conjunctiva /eyelids Overall: cornea clear 07/10/2016 None Full Exam - General 1994 Eyes conjunctiva /eyelids Overall: eyelids normal 07/10/2016 None Full Exam - General 1994 Eyes pupils and irises Overall: pupils equal, round, reactive to light and accomodation 07/10/2016 None Full Exam - General 1994 Respiratory auscultation Overall: breath sounds clear bilaterally 07/10/2016 None Full Exam - General 1994 Respiratory respiratory effort/rhythm Overall: no retractions 07/10/2016 None Full Exam - General 1994 Respiratory respiratory effort/rhythm Overall: normal rate 07/10/2016 None Full Exam - General 1994 Cardiovascular extremities Overall: no clubbing 07/10/2016 None Full Exam - General 1994 Cardiovascular auscultation of heart Overall: regular rate 07/10/2016 None Full Exam - General 1994 Cardiovascular auscultation of heart Overall: normal heart sounds 07/10/2016 None Full Exam - General 1994 Abdomen abdominal exam Overall: normal bowel sounds 07/10/2016 None Full Exam - General 1994 Neurologic cranial nerves Overall: crainial nerves 2 - 12 grossly intact 07/10/2016 None Full Exam - General 1994 Psychiatric orientation/consciousness Overall: oriented to person, place and time 07/10/2016 None Full Exam - General 1994 Psychiatric mood and affect Overall: normal mood and affect 07/10/2016 None Full Exam - General 1994 Abdomen abdominal exam Upper quadrant: non-tender to palpation 07/10/2016 None Full Exam - General 1994 Abdomen abdominal exam Lower quadrant: tender to palpation 07/10/2016 acutely ttp over lower right abdomen above iliac crest Full Exam - General 1994 Constitutional general appearance Development: well developed 06/28/2016 None Full Exam - General 1994 Constitutional general appearance Development: appears stated age 0106/28/2016 None Full Exam - General 1994 Constitutional general appearance Hygiene/Attention to Grooming: good hygiene 06/28/2016 None Full Exam - General 1994 Eyes conjunctiva /eyelids Overall: conjunctiva clear 06/28/2016 None Full Exam - General 1994 Eyes conjunctiva /eyelids Overall: cornea clear 06/28/2016 None Full Exam - General 1994 Eyes conjunctiva /eyelids Overall: eyelids normal 06/28/2016 None Full Exam - General 1994 Eyes pupils and irises Overall: pupils equal, round, reactive to light and accomodation 06/28/2016 None Full Exam - General 1994 Ears/Nose/Throat otoscopic exam Overall: external auditory canals clear 06/28/2016 None Full Exam - General 1994 Ears/Nose/Throat otoscopic exam Overall: tympanic membranes clear 06/28/2016 None Full Exam - General 1994 Ears/Nose/Throat lips/teeth/gingiva Overall: benign lips 06/28/2016 None Full Exam - General 1994 Ears/Nose/Throat lips/teeth/gingiva Overall: normal dentition 06/28/2016 None Full Exam - General 1994 Ears/Nose/Throat oral cavity/pharynx/larynx Overall: oral mucosa clear 06/28/2016 None Full Exam - General 1994 Ears/Nose/Throat oral cavity/pharynx/larynx Overall: oropharyngeal mucosa clear 06/28/2016 None Full Exam - General 1994 Ears/Nose/Throat oral cavity/pharynx/larynx Overall: hypopharynx benign 06/28/2016 None Full Exam - General 1994 Ears/Nose/Throat oral cavity/pharynx/larynx Overall: no masses 06/28/2016 None Full Exam - General 1994 Respiratory auscultation Overall: breath sounds clear bilaterally 06/28/2016 None Full Exam - General 1994 Respiratory respiratory effort/rhythm Overall: no retractions 06/28/2016 None Full Exam - General 1994 Respiratory respiratory effort/rhythm Overall: normal rate 06/28/2016 None Full Exam - General 1994 Cardiovascular extremities Overall: no clubbing 06/28/2016 None Full Exam - General 1994 Cardiovascular auscultation of heart Overall: regular rate 06/28/2016 None Full Exam - General 1994 Cardiovascular auscultation of heart Overall: normal heart sounds 06/28/2016 None Full Exam - General 1994 Abdomen abdominal exam Overall: normal bowel sounds 06/28/2016 None Full Exam - General 1994 Lymphatic neck nodes Overall: anterior cervical chain benign 06/28/2016 None Full Exam - General 1994 Lymphatic neck nodes Overall: posterior cervical chain benign 06/28/2016 None Full Exam - General 1994 Musculoskeletal upper extremity Inspection - wrist: Left cast 06/28/2016 None Full Exam - General 1994 Musculoskeletal spine, ribs and pelvis Overall: spine benign 06/28/2016 None Full Exam - General 1994 Musculoskeletal spine, ribs and pelvis Overall: sacroiliac joint benign 06/28/2016 None Full Exam - General 1994 Musculoskeletal spine, ribs and pelvis Overall: good posture 06/28/2016 None Full Exam - General 1994 Musculoskeletal head and neck Overall: head atraumatic 06/28/2016 None Full Exam - General 1994 Musculoskeletal head and neck Overall: cervical spine benign 06/28/2016 None Full Exam - General 1994 Integument inspection of skin Overall: few scattered moles, no gross abnormalities 06/28/2016 None Full Exam - General 1994 Neurologic deep tendon reflexes Overall: deep tendon reflexes intact 06/28/2016 None Full Exam - General 1994 Neurologic cranial nerves Overall: crainial nerves 2 - 12 grossly intact 06/28/2016 None Full Exam - General 1994 Psychiatric orientation/consciousness Overall: oriented to person, place and time 06/28/2016 None Full Exam - General 1994 Psychiatric mood and affect Overall: normal mood and affect 06/28/2016 None Full Exam - General 1994 Abdomen abdominal exam Upper quadrant: tender to palpation 06/28/2016 None Full Exam - General 1994 Abdomen abdominal exam Lower quadrant: tender to palpation 06/28/2016 None Full Exam - General 1994 Abdomen abdominal exam Lower quadrant: non-tender to palpation 06/28/2016 None Full Exam - General 1994 Abdomen abdominal exam Upper quadrant: non-tender to palpation 06/28/2016 None Full Exam - General 1994 Constitutional general appearance Development: well developed 06/14/2016 None Full Exam - General 1994 Constitutional general appearance Development: appears stated age 1206/14/2016 None Full Exam - General 1994 Constitutional general appearance Hygiene/Attention to Grooming: good hygiene 06/14/2016 None Full Exam - General 1994 Eyes conjunctiva /eyelids Overall: conjunctiva clear 06/14/2016 None Full Exam - General 1994 Eyes conjunctiva /eyelids Overall: cornea clear 06/14/2016 None Full Exam - General 1994 Eyes conjunctiva /eyelids Overall: eyelids normal 06/14/2016 None Full Exam - General 1994 Eyes pupils and irises Overall: pupils equal, round, reactive to light and accomodation 06/14/2016 None Full Exam - General 1994 Ears/Nose/Throat otoscopic exam Overall: external auditory canals clear 06/14/2016 None Full Exam - General 1994 Ears/Nose/Throat otoscopic exam Overall: tympanic membranes clear 06/14/2016 None Full Exam - General 1994 Ears/Nose/Throat lips/teeth/gingiva Overall: benign lips 06/14/2016 None Full Exam - General 1994 Ears/Nose/Throat lips/teeth/gingiva Overall: normal dentition 06/14/2016 None Full Exam - General 1994 Ears/Nose/Throat oral cavity/pharynx/larynx Overall: oral mucosa clear 06/14/2016 None Full Exam - General 1994 Ears/Nose/Throat oral cavity/pharynx/larynx Overall: oropharyngeal mucosa clear 06/14/2016 None Full Exam - General 1994 Ears/Nose/Throat oral cavity/pharynx/larynx Overall: hypopharynx benign 06/14/2016 None Full Exam - General 1994 Ears/Nose/Throat oral cavity/pharynx/larynx Overall: no masses 06/14/2016 None Full Exam - General 1994 Respiratory auscultation Overall: breath sounds clear bilaterally 06/14/2016 None Full Exam - General 1994 Respiratory respiratory effort/rhythm Overall: no retractions 06/14/2016 None Full Exam - General 1994 Respiratory respiratory effort/rhythm Overall: normal rate 06/14/2016 None Full Exam - General 1994 Cardiovascular extremities Overall: no clubbing 06/14/2016 None Full Exam - General 1994 Cardiovascular auscultation of heart Overall: regular rate 06/14/2016 None Full Exam - General 1994 Cardiovascular auscultation of heart Overall: normal heart sounds 06/14/2016 None Full Exam - General 1994 Abdomen abdominal exam Overall: no tenderness 06/14/2016 None Full Exam - General 1994 Abdomen abdominal exam Overall: normal bowel sounds 06/14/2016 None Full Exam - General 1994 Lymphatic neck nodes Overall: anterior cervical chain benign 06/14/2016 None Full Exam - General 1994 Lymphatic neck nodes Overall: posterior cervical chain benign 06/14/2016 None Full Exam - General 1994 Musculoskeletal spine, ribs and pelvis Overall: spine benign 06/14/2016 None Full Exam - General 1994 Musculoskeletal spine, ribs and pelvis Overall: sacroiliac joint benign 06/14/2016 None Full Exam - General 1994 Musculoskeletal spine, ribs and pelvis Overall: good posture 06/14/2016 None Full Exam - General 1994 Musculoskeletal head and neck Overall: head atraumatic 06/14/2016 None Full Exam - General 1994 Musculoskeletal head and neck Overall: cervical spine benign 06/14/2016 None Full Exam - General 1994 Integument inspection of skin Overall: few scattered moles, no gross abnormalities 06/14/2016 None Full Exam - General 1994 Neurologic deep tendon reflexes Overall: deep tendon reflexes intact 06/14/2016 None Full Exam - General 1994 Neurologic cranial nerves Overall: crainial nerves 2 - 12 grossly intact 06/14/2016 None Full Exam - General 1994 Psychiatric orientation/consciousness Overall: oriented to person, place and time 06/14/2016 None Full Exam - General 1994 Psychiatric mood and affect Overall: normal mood and affect 06/14/2016 None Full Exam - General 1994 Musculoskeletal upper extremity Inspection - wrist: Left cast 06/14/2016 None Full Exam - General 1994 Constitutional general appearance Development: well developed 04/09/2016 None Full Exam - General 1994 Constitutional general appearance Development: appears stated age 1004/09/2016 None Full Exam - General 1994 Constitutional general appearance Hygiene/Attention to Grooming: good hygiene 04/09/2016 None Full Exam - General 1994 Eyes conjunctiva /eyelids Overall: conjunctiva clear 04/09/2016 None Full Exam - General 1994 Eyes conjunctiva /eyelids Overall: cornea clear 04/09/2016 None Full Exam - General 1994 Eyes conjunctiva /eyelids Overall: eyelids normal 04/09/2016 None Full Exam - General 1994 Eyes pupils and irises Overall: pupils equal, round, reactive to light and accomodation 04/09/2016 None Full Exam - General 1994 Ears/Nose/Throat otoscopic exam Overall: external auditory canals clear 04/09/2016 None Full Exam - General 1994 Ears/Nose/Throat otoscopic exam Overall: tympanic membranes clear 04/09/2016 None Full Exam - General 1994 Ears/Nose/Throat lips/teeth/gingiva Overall: benign lips 04/09/2016 None Full Exam - General 1994 Ears/Nose/Throat lips/teeth/gingiva Overall: normal dentition 04/09/2016 None Full Exam - General 1994 Ears/Nose/Throat oral cavity/pharynx/larynx Overall: oral mucosa clear 04/09/2016 None Full Exam - General 1994 Ears/Nose/Throat oral cavity/pharynx/larynx Overall: oropharyngeal mucosa clear 04/09/2016 None Full Exam - General 1994 Ears/Nose/Throat oral cavity/pharynx/larynx Overall: hypopharynx benign 04/09/2016 None Full Exam - General 1994 Ears/Nose/Throat oral cavity/pharynx/larynx Overall: no masses 04/09/2016 None Full Exam - General 1994 Respiratory auscultation Overall: breath sounds clear bilaterally 04/09/2016 None Full Exam - General 1994 Respiratory respiratory effort/rhythm Overall: no retractions 04/09/2016 None Full Exam - General 1994 Respiratory respiratory effort/rhythm Overall: normal rate 04/09/2016 None Full Exam - General 1994 Cardiovascular extremities Overall: no clubbing 04/09/2016 None Full Exam - General 1994 Cardiovascular extremities Edema present: pitting 04/09/2016 None Full Exam - General 1994 Cardiovascular extremities Edema present: severity 1+ - 4 +: 3+ 04/09/2016 None Full Exam - General 1994 Cardiovascular extremities Other findings: varicose veins 04/09/2016 None Full Exam - General 1994 Cardiovascular extremities Other findings: spider veins 04/09/2016 None Full Exam - General 1994 Cardiovascular auscultation of heart Overall: regular rate 04/09/2016 None Full Exam - General 1994 Cardiovascular auscultation of heart Overall: normal heart sounds 04/09/2016 None Full Exam - General 1994 Abdomen abdominal exam Overall: no tenderness 04/09/2016 None Full Exam - General 1994 Abdomen abdominal exam Overall: normal bowel sounds 04/09/2016 None Full Exam - General 1994 Lymphatic neck nodes Overall: anterior cervical chain benign 04/09/2016 None Full Exam - General 1994 Lymphatic neck nodes Overall: posterior cervical chain benign 04/09/2016 None Full Exam - General 1994 Musculoskeletal spine, ribs and pelvis Overall: spine benign 04/09/2016 None Full Exam - General 1994 Musculoskeletal spine, ribs and pelvis Overall: sacroiliac joint benign 04/09/2016 None Full Exam - General 1994 Musculoskeletal spine, ribs and pelvis Overall: good posture 04/09/2016 None Full Exam - General 1994 Musculoskeletal head and neck Overall: head atraumatic 04/09/2016 None Full Exam - General 1994 Musculoskeletal head and neck Overall: cervical spine benign 04/09/2016 None Full Exam - General 1994 Integument inspection of skin Overall: few scattered moles, no gross abnormalities 04/09/2016 None Full Exam - General 1994 Neurologic deep tendon reflexes Overall: deep tendon reflexes intact 04/09/2016 None Full Exam - General 1994 Neurologic cranial nerves Overall: crainial nerves 2 - 12 grossly intact 04/09/2016 None Full Exam - General 1994 Psychiatric orientation/consciousness Overall: oriented to person, place and time 04/09/2016 None Full Exam - General 1994 Psychiatric mood and affect Overall: normal mood and affect 04/09/2016 None Full Exam - General 1994 Musculoskeletal upper extremity Palpation - shoulder: tenderness @ bicipital groove 04/09/2016 None Full Exam - General 1994 Constitutional general appearance Development: well developed 01/10/2016 None Full Exam - General 1994 Constitutional general appearance Development: appears stated age 0701/10/2016 None Full Exam - General 1994 Constitutional general appearance Hygiene/Attention to Grooming: good hygiene 01/10/2016 None Full Exam - General 1994 Eyes conjunctiva /eyelids Overall: conjunctiva clear 01/10/2016 None Full Exam - General 1994 Eyes conjunctiva /eyelids Overall: cornea clear 01/10/2016 None Full Exam - General 1994 Eyes conjunctiva /eyelids Overall: eyelids normal 01/10/2016 None Full Exam - General 1994 Eyes pupils and irises Overall: pupils equal, round, reactive to light and accomodation 01/10/2016 None Full Exam - General 1994 Ears/Nose/Throat otoscopic exam Overall: external auditory canals clear 01/10/2016 None Full Exam - General 1994 Ears/Nose/Throat otoscopic exam Overall: tympanic membranes clear 01/10/2016 None Full Exam - General 1994 Ears/Nose/Throat lips/teeth/gingiva Overall: benign lips 01/10/2016 None Full Exam - General 1994 Ears/Nose/Throat lips/teeth/gingiva Overall: normal dentition 01/10/2016 None Full Exam - General 1994 Ears/Nose/Throat oral cavity/pharynx/larynx Overall: oral mucosa clear 01/10/2016 None Full Exam - General 1994 Ears/Nose/Throat oral cavity/pharynx/larynx Overall: oropharyngeal mucosa clear 01/10/2016 None Full Exam - General 1994 Ears/Nose/Throat oral cavity/pharynx/larynx Overall: hypopharynx benign 01/10/2016 None Full Exam - General 1994 Ears/Nose/Throat oral cavity/pharynx/larynx Overall: no masses 01/10/2016 None Full Exam - General 1994 Respiratory auscultation Overall: breath sounds clear bilaterally 01/10/2016 None Full Exam - General 1994 Respiratory respiratory effort/rhythm Overall: no retractions 01/10/2016 None Full Exam - General 1994 Respiratory respiratory effort/rhythm Overall: normal rate 01/10/2016 None Full Exam - General 1994 Cardiovascular extremities Overall: no clubbing 01/10/2016 None Full Exam - General 1994 Cardiovascular extremities Edema present: pitting 01/10/2016 None Full Exam - General 1994 Cardiovascular extremities Edema present: severity 1+ - 4 +: 3+ 01/10/2016 None Full Exam - General 1994 Cardiovascular extremities Other findings: varicose veins 01/10/2016 None Full Exam - General 1994 Cardiovascular extremities Other findings: spider veins 01/10/2016 None Full Exam - General 1994 Cardiovascular auscultation of heart Overall: regular rate 01/10/2016 None Full Exam - General 1994 Cardiovascular auscultation of heart Overall: normal heart sounds 01/10/2016 None Full Exam - General 1994 Abdomen abdominal exam Overall: no tenderness 01/10/2016 None Full Exam - General 1994 Abdomen abdominal exam Overall: normal bowel sounds 01/10/2016 None Full Exam - General 1994 Lymphatic neck nodes Overall: anterior cervical chain benign 01/10/2016 None Full Exam - General 1994 Lymphatic neck nodes Overall: posterior cervical chain benign 01/10/2016 None Full Exam - General 1994 Musculoskeletal spine, ribs and pelvis Overall: spine benign 01/10/2016 None Full Exam - General 1994 Musculoskeletal spine, ribs and pelvis Overall: sacroiliac joint benign 01/10/2016 None Full Exam - General 1994 Musculoskeletal spine, ribs and pelvis Overall: good posture 01/10/2016 None Full Exam - General 1994 Musculoskeletal head and neck Overall: head atraumatic 01/10/2016 None Full Exam - General 1994 Musculoskeletal head and neck Overall: cervical spine benign 01/10/2016 None Full Exam - General 1994 Integument inspection of skin Overall: few scattered moles, no gross abnormalities 01/10/2016 None Full Exam - General 1994 Neurologic deep tendon reflexes Overall: deep tendon reflexes intact 01/10/2016 None Full Exam - General 1994 Neurologic cranial nerves Overall: crainial nerves 2 - 12 grossly intact 01/10/2016 None Full Exam - General 1994 Psychiatric orientation/consciousness Overall: oriented to person, place and time 01/10/2016 None Full Exam - General 1994 Psychiatric mood and affect Overall: normal mood and affect 01/10/2016 None Full Exam - General 1994 Constitutional general appearance Development: well developed 12/14/2015 None Full Exam - General 1994 Constitutional general appearance Development: appears stated age 0612/14/2015 None Full Exam - General 1994 Constitutional general appearance Hygiene/Attention to Grooming: good hygiene 12/14/2015 None Full Exam - General 1994 Eyes conjunctiva /eyelids Overall: conjunctiva clear 12/14/2015 None Full Exam - General 1994 Eyes conjunctiva /eyelids Overall: cornea clear 12/14/2015 None Full Exam - General 1994 Eyes conjunctiva /eyelids Overall: eyelids normal 12/14/2015 None Full Exam - General 1994 Eyes pupils and irises Overall: pupils equal, round, reactive to light and accomodation 12/14/2015 None Full Exam - General 1994 Ears/Nose/Throat otoscopic exam Overall: external auditory canals clear 12/14/2015 None Full Exam - General 1994 Ears/Nose/Throat otoscopic exam Overall: tympanic membranes clear 12/14/2015 None Full Exam - General 1994 Ears/Nose/Throat lips/teeth/gingiva Overall: benign lips 12/14/2015 None Full Exam - General 1994 Ears/Nose/Throat lips/teeth/gingiva Overall: normal dentition 12/14/2015 None Full Exam - General 1994 Ears/Nose/Throat oral cavity/pharynx/larynx Overall: oral mucosa clear 12/14/2015 None Full Exam - General 1994 Ears/Nose/Throat oral cavity/pharynx/larynx Overall: oropharyngeal mucosa clear 12/14/2015 None Full Exam - General 1994 Ears/Nose/Throat oral cavity/pharynx/larynx Overall: hypopharynx benign 12/14/2015 None Full Exam - General 1994 Ears/Nose/Throat oral cavity/pharynx/larynx Overall: no masses 12/14/2015 None Full Exam - General 1994 Respiratory auscultation Overall: breath sounds clear bilaterally 12/14/2015 None Full Exam - General 1994 Respiratory respiratory effort/rhythm Overall: no retractions 12/14/2015 None Full Exam - General 1994 Respiratory respiratory effort/rhythm Overall: normal rate 12/14/2015 None Full Exam - General 1994 Cardiovascular extremities Overall: no clubbing 12/14/2015 None Full Exam - General 1994 Cardiovascular auscultation of heart Overall: regular rate 12/14/2015 None Full Exam - General 1994 Cardiovascular auscultation of heart Overall: normal heart sounds 12/14/2015 None Full Exam - General 1994 Abdomen abdominal exam Overall: no tenderness 12/14/2015 None Full Exam - General 1994 Abdomen abdominal exam Overall: normal bowel sounds 12/14/2015 None Full Exam - General 1994 Lymphatic neck nodes Overall: anterior cervical chain benign 12/14/2015 None Full Exam - General 1994 Lymphatic neck nodes Overall: posterior cervical chain benign 12/14/2015 None Full Exam - General 1994 Musculoskeletal spine, ribs and pelvis Overall: spine benign 12/14/2015 None Full Exam - General 1994 Musculoskeletal spine, ribs and pelvis Overall: sacroiliac joint benign 12/14/2015 None Full Exam - General 1994 Musculoskeletal spine, ribs and pelvis Overall: good posture 12/14/2015 None Full Exam - General 1994 Musculoskeletal head and neck Overall: head atraumatic 12/14/2015 None Full Exam - General 1994 Musculoskeletal head and neck Overall: cervical spine benign 12/14/2015 None Full Exam - General 1994 Integument inspection of skin Overall: few scattered moles, no gross abnormalities 12/14/2015 None Full Exam - General 1994 Neurologic deep tendon reflexes Overall: deep tendon reflexes intact 12/14/2015 None Full Exam - General 1994 Neurologic cranial nerves Overall: crainial nerves 2 - 12 grossly intact 12/14/2015 None Full Exam - General 1994 Psychiatric orientation/consciousness Overall: oriented to person, place and time 12/14/2015 None Full Exam - General 1994 Psychiatric mood and affect Overall: normal mood and affect 12/14/2015 None Full Exam - General 1994 Cardiovascular extremities Edema present: pitting 12/14/2015 None Full Exam - General 1994 Cardiovascular extremities Edema present: severity 1+ - 4 +: 3+ 12/14/2015 None Full Exam - General 1994 Cardiovascular extremities Other findings: varicose veins 12/14/2015 None Full Exam - General 1994 Cardiovascular extremities Other findings: spider veins 12/14/2015 None Procedures Procedure Codes Date TRIM SKIN LESION CPT-4 : 04611 09/23/2017 INJ TRIGGER POINT 1/2 MUSCL CPT-4: 34460 07/12/2016 TRIAMCINOLONE ACET INJ NOS CPT-4: J3301 07/12/2016 Vital Signs Date Vital 06/02/2018 Blood Pressure 1: 140/82 Code : 8480-6 BMI: 32.1 Code : 92604-7 Heart Rate 1 : 77 bpm Height: 5'3" SpO2: 98% Temperature: 36.9 (C) / 98.4 (F) Weight: 181 lbs 02/07/2018 Blood Pressure 1: 128/72 Code : 8480-6 BMI: 31.0 Code : 05897-8 Heart Rate 1 : 68 bpm Height: 5'3" SpO2: 96% Weight: 175 lbs 09/23/2017 Blood Pressure 1: 12868 Code : 8480-6 BMI: 30.8 Code : 60090-6 Heart Rate 1 : 64 bpm Height: 5'3" SpO2: 97% Weight: 174 lbs 05/14/2017 Blood Pressure 1: 146/82 Code : 8480-6 BMI: 28.8 Code : 94975-7 Heart Rate 1 : 81 bpm Height: 5'3" SpO2: 100% Weight: 162 lbs 8 oz 08/08/2016 Blood Pressure 1: 126/76 Code : 8480-6 Heart Rate 1: 72 bpm Height: SpO2: 97% Weight: 07/12/2016 Blood Pressure 1: 138/76 Code : 8480-6 BMI: 30.1 Code : 39717-1 Heart Rate 1 : 81 bpm Height: 5'3" SpO2: 97% Weight: 170 lbs 07/10/2016 Blood Pressure 1: 132/80 Code : 8480-6 BMI: 30.1 Code : 72575-6 Heart Rate 1 : 76 bpm Height: 5'3" SpO2: 97% Weight: 170 lbs 06/28/2016 Blood Pressure 1: 144/82 Code : 8480-6 Heart Rate 1: 71 bpm Height: 5'3" SpO2: 98% Weight: 06/14/2016 Blood Pressure 1: 128/86 Code : 8480-6 Heart Rate 1: 86 bpm Height: SpO2: 96% Weight: 04/09/2016 Blood Pressure 1: 120/76 Code : 8480-6 BMI: 31.2 Code : 07106-8 Heart Rate 1 : 71 bpm Height: 5'3" SpO2: 98% Weight: 176 lbs 01/10/2016 Blood Pressure 1: 138/72 Code : 8480-6 BMI: 31.5 Code : 33166-3 Heart Rate 1 : 79 bpm Height: 5'3" SpO2: 99% Weight: 178 lbs 12/22/2015 Blood Pressure 1: 146/82 Code : 8480-6 Heart Rate 1: 73 bpm SpO2: 97% 12/14/2015 Blood Pressure 1: 178/88 Code : 8480-6 BMI: 31.9 Code : 38383-9 Heart Rate 1 : 78 bpm Height: 5'3" Respiratory Rate: 20 bpm Weight: 180 lbs Functional Status No Functional Status data History of Present Illness Symptom Name Status Result Effective Date Notes Onset and Resolution sudden in onset 06/02/2018 None Onset of Symptom 4 days ago 06/02/2018 None Pertinent Findings cough 06/02/2018 None Pertinent Findings hoarseness 06/02/2018 None Location on both sides 06/02/2018 None Quality constant None Quality fullness None Quality pressure None Triggers no known associated factors 06/02/2018 None Alleviating Factors medication 06/02/2018 None Severity moderate None Frequency of Episodes increasing 06/02/2018 None rash Location-Major on the chest 02/07/2018 None rash Color red 2017 None rash Onset and Resolution sudden in onset 02/07/2018 None rash Onset of Symptom 4 days ago 02/07/2018 None rash Pertinent Findings itching 02/07/2018 None color change Location-Major on the toes 09/23/2017 None color change Location-Extremities on the right (second) toe 09/23/2017 None color change Quality acute 09/23/2017 None color change Color black 09/23/2017 None color change Onset and Resolution sudden in onset 09/23/2017 None color change Onset and Resolution ongoing 09/23/2017 None color change Pertinent Findings pain 09/23/2017 None color change Quality improving 09/23/2017 None muscle weakness Location diffusely 05/14/2017 None muscle weakness Quality both sides 05/14/2017 None muscle weakness Onset and Resolution sudden in onset 05/14/2017 None muscle weakness Onset of Symptom 3 weeks ago 05/14/2017 None muscle weakness Pertinent Findings lethargy 05/14/2017 None muscle weakness Pertinent Findings muscle tenderness 05/14/2017 muscle cramps muscle weakness Pertinent Findings weight loss 05/14/2017 None Hospital Follow Up _ Other: uncontrolled pain in her RLQ/groin region 08/08/2016 None Hospital Follow Up Quality acute 08/08/2016 None abdominal pain Location in the RLQ 07/12/2016 None abdominal pain Quality aching 07/12/2016 pulling abdominal pain Onset and Resolution ongoing 07/12/2016 None abdominal pain Onset of Symptom 1 weeks ago 07/12/2016 None abdominal pain Limitation on Activities does not limit activities 07/12/2016 None abdominal pain Frequency of Episodes unchanged 07/12/2016 None abdominal pain Timing of Episodes in the morning 07/12/2016 None abdominal pain Triggers no known associated factors 07/12/2016 developed constipation about a week ago-wonders if it's the tramadol she's taking for her arm fracture abdominal pain Pertinent Findings Denies abdominal distension 07/12/2016 None abdominal pain Pertinent Findings Denies back pain 07/12/2016 None abdominal pain Pertinent Findings Denies cough 07/12/2016 None abdominal pain Location in the RLQ 07/10/2016 None abdominal pain Radiating the inguinal area 07/10/2016 None abdominal pain Quality acute 07/10/2016 None abdominal pain Quality intermittent 07/10/2016 None abdominal pain Onset and Resolution sudden in onset 07/10/2016 None abdominal pain Onset of Symptom 2+ weeks ago 07/10/2016 None abdominal pain Limitation on Activities moderately limits activities 07/10/2016 None abdominal pain Triggers position change 07/10/2016 None abdominal pain Triggers activity 07/10/2016 None abdominal pain Alleviating Factors rest 07/10/2016 None abdominal pain Location in the RLQ 06/28/2016 None abdominal pain Quality aching 06/28/2016 pulling abdominal pain Onset and Resolution ongoing 06/28/2016 None abdominal pain Onset of Symptom 1 weeks ago 06/28/2016 None abdominal pain Limitation on Activities does not limit activities 06/28/2016 None abdominal pain Frequency of Episodes unchanged 06/28/2016 None abdominal pain Timing of Episodes in the morning 06/28/2016 None abdominal pain Triggers no known associated factors 06/28/2016 developed constipation about a week ago-wonders if it's the tramadol she's taking for her arm fracture abdominal pain Pertinent Findings Denies abdominal distension 06/28/2016 None abdominal pain Pertinent Findings Denies back pain 06/28/2016 None abdominal pain Pertinent Findings Denies cough 06/28/2016 None depression Quality acute 06/14/2016 None depression Onset and Resolution sudden in onset 06/14/2016 None depression Onset of Symptom 3 weeks ago 06/14/2016 None depression Limitation on Activities moderately limits activities 06/14/2016 None depression Frequency of Episodes daily 06/14/2016 None depression Pertinent Findings anxiety 06/14/2016 None depression Pertinent Findings depressed mood 06/14/2016 None depression Pertinent Findings Denies helplessness 06/14/2016 None depression Pertinent Findings Denies hopelessness 06/14/2016 None depression Pertinent Findings Denies loss of interest in activities 06/14/2016 None depression Pertinent Findings Denies sleep disturbance 06/14/2016 None back pain Onset and Resolution ongoing 04/09/2016 None edema Onset and Resolution ongoing 04/09/2016 None edema Location on both legs 04/09/2016 None hypertension Onset and Resolution ongoing 04/09/2016 None hypertension Onset of Symptom during adulthood 04/09/2016 None hypertension Blood Pressure Values not checking blood pressure at home 04/09/2016 None hypertension Alleviating Factors medication 04/09/2016 None hypertension Pertinent Findings Denies dizziness 04/09/2016 None hypertension Pertinent Findings Denies dyspnea 04/09/2016 None hypertension Pertinent Findings edema 04/09/2016 -improved edema Quality improving 04/09/2016 None shoulder pain Location on the right shoulder 04/09/2016 None shoulder pain Onset and Resolution ongoing 04/09/2016 None shoulder pain Alleviating Factors rest 04/09/2016 None shoulder pain Exacerbating Factors exertion 04/09/2016 None shoulder pain Exacerbating Factors activity 04/09/2016 None back pain Exacerbating Factors exertion 04/09/2016 None back pain Exacerbating Factors activity 04/09/2016 None hypertension Onset and Resolution ongoing 01/10/2016 None hypertension Onset of Symptom during adulthood 01/10/2016 None hypertension Blood Pressure Values not checking blood pressure at home 01/10/2016 None hypertension Alleviating Factors medication 01/10/2016 None hypertension Pertinent Findings Denies dizziness 01/10/2016 None hypertension Pertinent Findings Denies dyspnea 01/10/2016 None hypertension Pertinent Findings edema 01/10/2016 None edema Quality pitting 01/10/2016 None edema Quality constant 01/10/2016 None edema Onset and Resolution ongoing 01/10/2016 None edema Location on both legs 01/10/2016 None back pain Onset and Resolution ongoing 01/10/2016 None pain, generalized Location diffusely 12/14/2015 None pain, generalized Location in multiple limbs 12/14/2015 None pain, generalized Quality aching 12/14/2015 lower legs left greater than right pain, generalized Onset and Resolution ongoing 12/14/2015 None pain, generalized Limitation on Activities moderately limits activities 12/14/2015 None pain, generalized Triggers exertion 12/14/2015 None pain, generalized Alleviating Factors rest 12/14/2015 -elevating lower legs - Advance Directives No Advance Directive data Encounters Encounter Performer Location Codes Date ([id number]) [id number] EST. PATIENT, LEVEL III Diagnosis: Acute upper respiratory infection, unspecified[ICD10: J06.9] Celia Yadav MD, [facility] CPT-4: 86684 06/02/2018 [id number] EST. PATIENT, LEVEL II Diagnosis: Zoster without complications[ICD10: B02.9] Celia Yadav MD, [facility] CPT-4: 40177 02/07/2018 ([id number]) [id number] EST. PATIENT, LEVEL III Diagnosis: Essential (primary) hypertension[ICD10: I10] Bijal Yadav MD, [facility] CPT-4: 29097 09/23/2017 ([id number]) 10629 EST. PATIENT, LEVEL IV Diagnosis: Essential (primary) hypertension[ICD10: I10] Diagnosis: Muscle weakness (generalized)[ICD10: M62.81] Diagnosis: Other insomnia[ICD10: G47.09] Bijal Yadav MD, [facility] CPT- 4: 30846 05/14/2017 ([id number]) [id number] EST. PATIENT, LEVEL III Diagnosis: Right lower quadrant pain[ICD10: R10.31] Bijal Yadav MD, [facility] CPT-4: 82568 08/08/2016 ([id number]) [id number] EST. PATIENT, LEVEL III Diagnosis: Right lower quadrant pain[ICD10: R10.31] Bijal Yadav MD, [facility] CPT-4: 77427 07/10/2016 ([id number]) [id number] EST. PATIENT, LEVEL III Diagnosis: Right lower quadrant pain[ICD10: R10.31] Diagnosis: Drug induced constipation[ICD10: K59.03] Celia Yadav MD, [facility] CPT-4: 72863 06/28/2016 ([id number]) [id number] EST. 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 CPT-4: 13218 06/14/2016 [id number]) [id number] EST. PATIENT, LEVEL IV Diagnosis: Essential (primary) hypertension[ICD10: I10] Diagnosis: Varicose veins of bilateral lower extremities with pain[ICD10: I83.813] Diagnosis: Localized edema[ICD10: R60.0] Diagnosis: Pain in right shoulder[ICD10: M25.511] [facility] CPT-4: 28005 04/09/2016 ([id number]) 96987 EST. PATIENT, LEVEL III Diagnosis: Essential (primary) hypertension[ICD10: I10] Diagnosis: Varicose veins of bilateral lower extremities with pain[ICD10: I83.813] Diagnosis: Localized edema[ICD10: R60.0] Bijal Yadav MD, [facility] CPT- 4: 04938 01/10/2016 ([id number]) Miscellaneous no charge Diagnosis: Essential (primary) hypertension[ICD10: I10] Bijal Yadav MD, [facility] CPT-4: 03075 12/22/2015 ([id number]) OFFICE VISIT, NEW - LEVEL 4 Diagnosis: Essential (primary) hypertension[ICD10: I10] Diagnosis: Localized edema[ICD10: R60.0] Diagnosis: Varicose veins of bilateral lower extremities with pain[ICD10: I83.813] Bijal Yadav MD, [facility] CPT-4: 10711 2015 Plan of Care Planned Activity Notes Codes Status Date Visit Plan: URI - Pt advised to increase fluids, vitamin C. Discussed natural and expected course of this diagnosis and need to alert me if symptoms do not follow expected course, or if any worse. RX sent to patient' s pharmacy. 06/02/2018 Appointment: Celia Singleton WPtel: [address] [place], [place] [phone] (30 min) [facility] 06/02/2018 Patient Education: Patient Medication Summary Completed 06/02/2018 Visit Plan: Shingles - Herpes Zoster - acute in onset - pt started on acyclovir and instructed to call if symptoms worsen or if the pt is concerned about the symptoms. Pt has been advised to avoid contact with persons who may be , or infants, or immunocompromised individuals. Pt has been instructed that shingles will continue to break out and eventually scab over a two week period, until all of the vesicles are scabbed, the pt is to be considered contagious. 02/07/2018 Visit Plan: Shingles - Herpes Zoster - acute in onset - pt started on acyclovir and instructed to call if symptoms worsen or if the pt is concerned about the symptoms. Pt has been advised to avoid contact with persons who may be , or infants, or immunocompromised individuals. Pt has been instructed that shingles will continue to break out and eventually scab over a two week period, until all of the vesicles are scabbed, the pt is to be considered contagious. 02/07/2018 Appointment: Celia Singleton WPtel: [phone] (15 min) Moderate 02/07/2018 Patient Education: Patient Medication Summary Completed 02/07/2018 Appointment: Bijal Yadav WPtel: [facility] (15 min) Moderate 11/05/2017 Visit Plan: Hypertension - well controlled - continue with current medications, continue with no added salt diet. Pt has been encouraged to exercise daily. The pt has been advised to call the office if there are any acute concerns about change in blood pressure readings at home. Callus of 2nd toe left foot - due to hammertoe - debrided. Hypertension - well controlled - continue with current medications, continue with no added salt diet. Pt has been encouraged to exercise daily. The pt has been advised to call the office if there are any acute concerns about change in blood pressure readings at home. Insomnia -increase melatonin to 10mg extended release. restart Vitamin D 5000 units daily. 09/23/2017 Appointment: Bijal Yadav WPtel: [phone] [facility] (15 min) Moderate 09/23/2017 Patient Education: Patient Medication Summary Completed 09/23/2017 Visit Plan: Hypertension - well controlled - continue with current medications, continue with no added salt diet. Pt has been encouraged to exercise daily. The pt has been advised to call the office if there are any acute concerns about change in blood pressure readings at home. Insomnia - increase melatonin to 10mg extended release. restart Vitamin D 5000 units daily. 05/14/2017 Appointment: Bijal Yadav WPtel: [facility] [place] [place] (15 min) Moderate 05/14/2017 Patient Education: Patient Medication Summary Completed 05/14/2017 Visit Plan: Abdominal pain - uncontrolled - pt to increase lyrica to 50mg tid - referral back up to [facility] - I suspect hernia - but imaging has not been positive for hernia - pt has been to see two surgeons - but they did not find evidence of hernia - we will have her re-evaluated by specialist at - in the end - she likely needs exploratory surgery to finally find out what is going on in her right lower quadrant causing her such severe pain. 08/08/2016 Appointment: Bijal Yadav [facility]Ptel[phone] [place] [place] (15 min) Moderate 08/08/2016 Patient Education: Patient Medication Summary Completed 08/08/2016 Visit Plan: trigger point of right lower abdomen - injection in attempt to control pain, - if not improved, need to refer to specialist. 07/12/2016 Visit Plan: trigger point of right lower abdomen - injection in attempt to control pain, - if not improved, need to refer to specialist. 07/12/2016 Appointment: Bijal Yadav [facility]Ptel[phone] [place] [place] (10 min) Simple 07/12/2016 Patient Education: Patient Medication Summary Completed 07/12/2016 Visit Plan: Abdominal pain - uncontrolled - rx for lidoderm patch - or use over the counter lidoderm patches - call if not improved - rx for cyclobenzaprine 07/10/2016 Appointment: Bijal Yadav WPtel: [phone] [facility] [place] [place] (15 min) Moderate 07/10/2016 Patient Education: Patient Medication Summary Completed 07/10/2016 Patient Education: Obesity Completed 07/10/2016 Visit Plan: Constipation - uncontrolled - I have discussed with the patient the need for adequate fiber and water intake to facilitate soft , easily passed stools. The pt noted understanding of our conversation. I have given the patient a recipe for "power pudding" - equal parts, bran flakes, prune juice, and apple sauce. The pt is to call if symptoms not improved on this regimen. 06/28/2016 Patient Education: Patient Medication Summary Completed 06/28/2016 Visit Plan: Hypertension - well controlled - continue with current medications, continue with no added salt diet. Pt has been encouraged to exercise daily. The pt has been advised to call the office if there are any acute concerns about change in blood pressure readings at home. Depression - uncontrolled - Pt has been counseled about the diagnosis of depression, the potential causes, and risks associated with the diagnosis. The pt denies suicidal ideation, or plans. The patient has been counseled about treatment options, and understands the risks associated with treatment of depression, as well as the risks associated with NOT treating the depression. Discussed SSRI- patient does not want to start medication-recommend B12 1000mcg daily and increase vitamin d3 to 2000 units daily. Follow up in 1 month, sooner if needed. Suspect depression r/o recent fracture left wrist in addition to right rotator cuff repair and should improve with increased mobility. 06/14/2016 App[facility]ment: [phone] (30 min) Complex 06/14/2016 Patient Education: Patient Medication Summary Completed 06/14/2016 Patient Education: Patient Medication Summary Completed 06/12/2016 Visit Plan: Hypertension - well controlled - continue with current medications, continue with no added salt diet. Pt has been encouraged to exercise daily. The pt has been advised to call the office if there are any acute concerns about change in blood pressure readings at home. Shoulder pain - recommended pt to use meloxicam - heat to shoulder - call if pain not improving. Edema - improved with varicose vein treatment. 04/09/2016 Appointment: Bijal Yadav WPtel: [phone] [facility] [place] (15 min) Moderate 04/09/2016 Patient Education: Patient Medication Summary Completed 04/09/2016 Patient Education: Obesity Completed 04/09/2016 Care Plan: Comp Metabolic Cancelled 04/09/2016 Care Plan: Cbc With Differential Cancelled 04/09/2016 Care Plan: Tsh Cancelled 04/09/2016 Care Plan: Lipid Cancelled 04/09/2016 Visit Plan: Hypertension - uncontrolled - the patient's medications have been modified as documented in the visit note. The patient has been counseled to cut back on salt in diet for a no added salt diet, low fat diet, start an exercise program with low weight bearing exercises and higher aerobic activity for heart health. The patient is to check blood pressure readings as an outpatient and either fax, call, or email the readings to the office next week for practitioner to review. The pt is to call for acute concerns. Pt started on losartan 50mg daily Varicose Veins - pt advised to get herself a follow up appt with dr. chen for follow up on veins after january [address] Denney. 01/10/2016 Appointment: Bijal Yadav WPtel: [facility] [place] (15 min) Moderate 01/10/2016 Patient Education: Patient Medication Summary Completed 01/10/2016 Patient Education: Obesity Completed 01/10/2016 Appointment: Nurse Visit 12/22/2015 Patient Education: Patient Medication Summary Completed 12/22/2015 Visit Plan: Hypertension - well controlled - continue with current medications, continue with no added salt diet. Pt has been encouraged to exercise daily. The pt has been advised to call the office if there are any acute concerns about change in blood pressure readings at home. Varicose veins - referral to Dr. Chen. Edema - compression socks on bilateral lower legs. look up mechanical compression to use on your legs at night use thigh high compression during the day if you can handle the heat of the compression socks 12/14/2015 Patient Education: Patient Medication Summary Completed 12/14/2015 Patient Education: Obesity Completed 12/14/2015 Instructions Comment look up mechanical compression to use on your legs at night use thigh high compression during the day if you can handle the heat of the compression socks use the pennsaid samples on your hip and arm on the right side three times daily x 1 week then twice daily. . Hypertension - well controlled - continue with current medications, continue with no added salt diet. Pt has been encouraged to exercise daily. The pt has been advised to call the office if there are any acute concerns about change in blood pressure readings at home. Varicose veins - referral to Dr. Chen. Edema - compression socks on bilateral lower legs. look up mechanical compression to use on your legs at night use thigh high compression during the day if you can handle the heat of the compression socks INCREASE VITAMIN D3 TO 2000 UNITS . Hypertension - well controlled - continue with current medications, continue with no added salt diet. Pt has been encouraged to exercise daily. The pt has been advised to call the office if there are any acute concerns about change in blood pressure readings at home. Depression - uncontrolled - Pt has been counseled about the diagnosis of depression, the potential causes, and risks associated with the diagnosis. The pt denies suicidal ideation, or plans. The patient has been counseled about treatment options, and understands the risks associated with treatment of depression, as well as the risks associated with NOT treating the depression. Discussed SSRI-patient does not want to start medication-recommend B12 1000mcg daily and increase vitamin d3 to 2000 units daily. Follow up in 1 month, sooner if needed. Suspect depression r/o recent fracture left wrist in addition to right rotator cuff repair and should improve with increased mobility. increase lyrica to 50mg three times daily. . Abdominal pain - uncontrolled - pt to increase lyrica to 50mg tid - referral back up to med - I suspect hernia - but imaging has not been positive for hernia - pt has been to see two surgeons - but they did not find evidence of hernia - we will have her re-evaluated by specialist at - in the end - she likely needs exploratory surgery to finally find out what is going on in her right lower quadrant causing her such severe pain. vitamin d 5000 units daily look your melatonin - if you don't already have EXTENDED RELEASE - get the melatonin ER - 5mg - you can take up to two of these at night to help you sleep.. Hypertension - well controlled - continue with current medications, continue with no added salt diet. Pt has been encouraged to exercise daily. The pt has been advised to call the office if there are any acute concerns about change in blood pressure readings at home. Insomnia -increase melatonin to 10mg extended release. restart Vitamin D 5000 units daily. . trigger point of right lower abdomen - injection in attempt to control pain, - if not improved, need to refer to specialist. . trigger point of right lower abdomen - injection in attempt to control pain, - if not improved, need to refer to specialist. . URI - Pt advised to increase fluids, vitamin C. Discussed natural and expected course of this diagnosis and need to alert me if symptoms do not follow expected course, or if any worse. RX sent to patient's pharmacy. . Constipation - uncontrolled - I have discussed with the patient the need for adequate fiber and water intake to facilitate soft, easily passed stools. The pt noted understanding of our conversation. I have given the patient a recipe for "power pudding" - equal parts, bran flakes, prune juice , and apple sauce. The pt is to call if symptoms not improved on this regimen. . Hypertension - uncontrolled - the patient's medications have been modified as documented in the visit note. The patient has been counseled to cut back on salt in diet for a no added salt diet, low fat diet, start an exercise program with low weight bearing exercises and higher aerobic activity for heart health. The patient is to check blood pressure readings as an outpatient and either fax , call, or email the readings to the office next week for practitioner to review. The pt is to call for acute concerns. Pt started on losartan 50mg daily Varicose Veins - pt advised to get herself a follow up appt with dr. chen for follow up on veins after january [address] Denney. . Hypertension - well controlled - continue with current medications, continue with no added salt diet. Pt has been encouraged to exercise daily. The pt has been advised to call the office if there are any acute concerns about change in blood pressure readings at home. Shoulder pain - recommended pt to use meloxicam - heat to shoulder - call if pain not improving. Edema - improved with varicose vein treatment. use the lidoderm patch on the abdomen . Abdominal pain - uncontrolled - rx for lidoderm patch - or use over the counter lidoderm patches - call if not improved - rx for cyclobenzaprine vitamin d 5000 units daily look your melatonin - if you don't already have EXTENDED RELEASE - get the melatonin ER - 5mg - you can take up to two of these at night to help you sleep. . Hypertension - well controlled - continue with current medications, continue with no added salt diet. Pt has been encouraged to exercise daily. The pt has been advised to call the office if there are any acute concerns about change in blood pressure readings at home. Callus of 2nd toe left foot - due to hammertoe - debrided. Hypertension - well controlled - continue with current medications, continue with no added salt diet. Pt has been encouraged to exercise daily. The pt has been advised to call the office if there are any acute concerns about change in blood pressure readings at home. Insomnia -increase melatonin to 10mg extended release. restart Vitamin D 5000 units daily. . Shingles - Herpes Zoster - acute in onset - pt started on acyclovir and instructed to call if symptoms worsen or if the pt is concerned about the symptoms. Pt has been advised to avoid contact with persons who may be , or infants, or immunocompromised individuals. Pt has been instructed that shingles will continue to break out and eventually scab over a two week period, until all of the vesicles are scabbed, the pt is to be considered contagious. . Shingles - Herpes Zoster - acute in onset - pt started on acyclovir and instructed to call if symptoms worsen or if the pt is concerned about the symptoms. Pt has been advised to avoid contact with persons who may be , or infants, or immunocompromised individuals. Pt has been instructed that shingles will continue to break out and eventually scab over a two week period, until all of the vesicles are scabbed, the pt is to be considered contagious.
--- OUTSIDE RECORDS SUMMARY | 2018-10-23 23:14 | XMS REPORT | CCD ---
Author Author [facility]al Y[facility] Organization [facility] Address [address] [place] [address] Phone Care Team Providers Care Communication Spec Name Role Phone PP Unavailable CCM Unavailable Summary Purpose Interface Exchange Insurance Providers Payer name Policy type / Coverage type Covered democrat ID Effective Begin Date Effective End Date [place] Medicare Part B [id number] 2015 Unknown [facility] Medicare Part B [id number] 2015 Unknown Family history Mother Diagnosis Age At Onset Hypertension Unknown Heart Attack Unknown Father Diagnosis Age At Onset Colon cancer Unknown Brother Diagnosis Age At Onset Cancer Unknown Social History Social History Element Codes Description Effective Dates Marital status Unknown 12/14/2015 Number of children Unknown 1 12/14/2015 Employment Unknown Retired 12/14/[address]: 090075881 Never smoker 12/14/[address]: 724285721 Never drinks alcohol 12/14/2015 Has the patient [...] Fill Instructions metformin 500 mg tablet RxNorm: 372439 TAKE 1 TABLET EVERY DAY 07/31/2018 07/25/2019 Active meloxicam 15 mg tablet RxNorm: 445986 TAKE 1 TABLET EVERY DAY 07/31/2018 07/25/2019 Active bisoprolol fumarate 5 mg tablet RxNorm: 838630 TAKE 1 TABLET EVERY DAY 07/31/2018 07/25/2019 Active ipratropium bromide 42 mcg (0.06 %) nasal spray RxNorm: 6765435 USE 1 SPRAY NASALLY DAILY 07/31/2018 07/25/2019 Active losartan 50 mg tablet RxNorm: 563527 TAKE 1 TABLET EVERY DAY 07/25/2019 Active Zithromax Z-Benjamin 250 mg tablet RxNorm: 614708 1 Tablet(s) PO UD 06/02/2018 06/06/2018 Inactive Flonase Allergy Relief 50 mcg/actuation nasal spray, suspension RxNorm: 2923074 2 [place] NASAL daily 06/02/20182017 Inactive acyclovir 400 mg tablet RxNorm: 621462 2 Tablet(s) PO QID 02/0702/06/2018 Inactive ipratropium bromide 42 mcg (0.06 %) nasal spray RxNorm: 7853699 1 [place] NASAL daily 02/07/2018 07/30/2018 Inactive acyclovir 400 mg tablet RxNorm: 174627 2 Tablet(s) PO QID 02/0702/16/2018 Inactive meloxicam 15 mg tablet RxNorm: 735233 TAKE 1 TABLET EVERY DAY 08/21/2017 07/30/2018 Inactive metformin 500 mg tablet RxNorm: 813697 1 Tablet(s) PO daily 07/201707/13/2018 Inactive losartan 50 mg tablet RxNorm: 498371 1 Tablet(s) PO daily 201707/13/2018 Inactive bisoprolol fumarate 5 mg tablet RxNorm: 823528 1 Tablet(s) PO daily 07/19/2017 07/13/2018 Inactive Phenergan-Codeine 6.25 mg-10 mg/5 mL syrup RxNorm: 391230 5-10 Milliliter(s) PO Q6 as needed 07/18/2017 07/17/2017 Inactive cefdinir 300 mg capsule RxNorm: 703538 1 Capsule(s) PO BID 06/201707/27/2017 Inactive Phenergan-Codeine 6.25 mg-10 mg/5 mL syrup RxNorm: 814296 5-10 Milliliter(s) PO Q6 as needed 07/18/2017 07/23/2017 Inactive cefdinir 300 mg capsule RxNorm: 742452 1 Capsule(s) PO BID 06/201707/17/2017 Inactive Zithromax Z-Benjamin 250 mg tablet RxNorm: 773780 1 Tablet(s) PO UD 07/16/2017 09/22/2017 Inactive z pack as directed ipratropium bromide 0.06 % nasal spray RxNorm: 8965000 1 [place] NASAL daily 04/08/2017 02/06/2018 Inactive ipratropium bromide 0.06 % nasal spray RxNorm: 0449479 1 [place] NASAL daily 04/05/2017 04/07/2017 Inactive metformin 500 mg tablet RxNorm: 689973 1 Tablet(s) PO daily 07/18/2017 Inactive potassium chloride ER 20 mEq tablet,extended release RxNorm: 579942 1 Tablet(s) PO daily as needed for leg cramps 10/03/2016 03/31/2017 Inactive potassium chloride 20 meq RxNorm: 1 PO daily as needed for leg cramps 10/03/2016 10/02/2016 Inactive metformin 500 mg tablet RxNorm: 903468 1 Tablet(s) PO daily 10/02/2016 Inactive losartan 50 mg tablet RxNorm: 770232 1 Tablet(s) PO daily 201607/18/2017 Inactive bisoprolol fumarate 5 mg tablet RxNorm: 578601 1 Tablet(s) PO daily 10/02/2016 07/18/2017 Inactive meloxicam 15 mg tablet RxNorm: 245664 1 Tablet(s) PO daily 03/201708/18/2017 Inactive Zithromax Z-Benjamin 250 mg tablet RxNorm: 081046 1 Tablet(s) PO UD 07/17/2016 08/16/2016 Inactive z pack as directed cyclobenzaprine 5 mg tablet RxNorm: 826088 1/2 - 1 Tablet(s) PO TID as needed muscle spasms 07/10/2016 08/08/2016 Inactive meloxicam 15 mg tablet RxNorm: 136197 1 Tablet(s) PO daily 08/23/2016 Inactive losartan 50 mg tablet RxNorm: 894739 1 Tablet(s) PO daily 201510/01/2016 Inactive losartan 50 mg tablet RxNorm: 200312 1 Tablet(s) PO daily 201501/09/2016 Inactive losartan 50 mg tablet RxNorm: 298915 1 Tablet(s) PO daily 201512/14/2015 Inactive Glucosamine-Chondroitin Complex oral RxNorm: oral No Start Date Active Low-Dose Aspirin 81 mg tablet RxNorm: 558831 1 Tablet(s) PO daily No Start Date Active Vitamin D3 1,000 unit tablet RxNorm: 216391 1 Tablet(s) PO daily No Start Date Active [place]-3 Fish Oil 300 mg-1,000 mg capsule RxNorm: 1 Capsule(s) PO TID No Start Date Active Vitamin C 500 mg tablet RxNorm: 965821 1 Tablet(s) PO daily No Start Date Active Vitamin B-12 1,000 mcg tablet RxNorm: 697061 1 Tablet(s) PO daily No Start Date Active Slow Fe oral RxNorm: 88698 oral No Start Date Active Aleve 220 mg tablet RxNorm: 446832 1 Tablet(s) PO daily No Start Date 05/13/2017 Inactive meloxicam 15 mg tablet RxNorm: 992599 1 Tablet(s) PO daily No Start Date 12/13/2015 Inactive Zithromax Z-Benjamin 250 mg tablet RxNorm: 258852 1 Tablet(s) PO UD No Start Date 07/16/2016 Inactive z pack as directed gabapentin 100 mg capsule RxNorm: 219026 1 Capsule(s) PO TID No Start Date 05/13/2017 Inactive ipratropium bromide 0.06 % nasal spray RxNorm: 6165305 [place] NASAL No Start Date 04/04/2017 Inactive bisoprolol fumarate 5 mg tablet RxNorm: 301554 1 Tablet(s) PO daily No Start Date 10/01/2016 Inactive oxycodone-acetaminophen 5 mg-325 mg tablet RxNorm: 3302915 2 Tablet(s) PO as needed No Start Date 05/13/2017 Inactive Medication Administered No Medication Administered data Immunizations Vaccine Codes Date Status Influenza CVX: 141 03/11/2018 completed Assessments Condition Codes Effective Dates Acute upper respiratory infection, unspecified ICD-10: J06.9 ICD-9: 465.9 06/02/2018 Zoster without complications ICD-10: B02.9 ICD-9: 053.9 02/07/2018 Essential (primary) hypertension ICD-10: I10 ICD-9: 401.1 09/23/2017 Other hammer toe(s) (acquired), left foot ICD-10: M20.42 ICD-9: 735.4 09/23/2017 Corns and callosities ICD-10: L84 ICD-9: 700 09/23/2017 Muscle weakness (generalized) ICD-10: M62.81 ICD-9: 728.87 05/14/2017 Other insomnia ICD-10: G47.09 ICD-9: 327.09 05/14/2017 Right lower quadrant pain ICD-10: R10.31 ICD-9: 789.03 08/08/2016 Other myositis, other site ICD-10: M60.88 ICD-9: 729.1 07/12/2016 Drug induced constipation ICD-10: K59.03 ICD-9: 564.09 06/28/2016 Major depressive disorder, single episode, mild ICD-10: F32.0 ICD-9: 311 06/14/2016 Localized edema ICD-10: R60.0 ICD-9: 782.3 06/12/2016 Varicose veins of bilateral lower extremities with pain ICD- 10: I83.813 ICD-9: 454.8 04/09/2016 Pain in right shoulder ICD-10: M25.511 ICD-9: 719.41 04/09/2016 Reason For Visit Reason For Visit Effective Dates Notes sinus congestion 06/02/2018 rash 02/07/2018 color change 09/23/2017 muscle weakness 05/14/2017 Hospital Follow Up 08/08/2016 abdominal pain 07/12/2016 abdominal pain 07/10/2016 abdominal pain 06/28/2016 depression 06/14/2016 back pain 04/09/2016 back pain 01/10/2016 pain, generalized 12/14/2015 Results Observation Observation Code Item Item Code Result Date Magnesium Ord90 Mag 1.8 mg/dL 05/15/2017 Lipid Ord30 CHOL 218 mg/dL 05/15/2017 Lipid Ord30 HDL 53.0 mg/dl 05/15/2017 Lipid Ord30 TRIG 103 mg/dL 05/15/2017 Lipid Ord30 LDL 144 mg/dL 05/15/2017 Lipid Ord30 C/HDL 4.1 Ratio 05/15/2017 Cbc With Differential Ord2 WBC 6.32 K/ul 05/15/2017 Cbc With Differential Ord2 RBC 4.19 M/ul 05/15/2017 Cbc With Differential Ord2 HGB 11.4 g/dl 05/15/2017 Cbc With Differential Ord2 HCT 35.8 % 05/15/2017 Cbc With Differential Ord2 Neut% 51.3 % 05/15/2017 Cbc With Differential Ord2 Lymph% 27.5 % 05/15/2017 Cbc With Differential Ord2 MCV 85.4 fl 05/15/2017 Cbc With Differential Ord2 MCH 27.2 pg 05/15/2017 Cbc With Differential Ord2 [place]% 12.2 % 05/15/2017 Cbc With Differential Ord2 Eos% 8.7 % 05/15/2017 Cbc With Differential Ord2 MCHC 31.8 pg 05/15/2017 Cbc With Differential Ord2 PLT 353 K/ul 05/15/2017 Cbc With Differential Ord2 Baso% 0.3 % 05/15/2017 Cbc With Differential Ord2 RDW 14.4 % 05/15/2017 Cbc With Differential Ord2 Neut ABS# 3.24 K/ul 05/15/2017 Cbc With Differential Ord2 Lymph ABS# 1.74 K/ul 05/15/2017 Cbc With Differential Ord2 [place] ABS# 0.8 K/ul 05/15/2017 Cbc With Differential Ord2 Eos ABS# 0.6 K/ul 05/15/2017 Cbc With Differential Ord2 Baso ABS# 0.0 K/ul 05/15/2017 Comp Metabolic Lmo537 NA 137 mEq/L 05/15/2017 Comp Metabolic Nio495 K 4.5 mEq/L 05/15/2017 Comp Metabolic Onq252 CL 102 mEq/L 05/15/2017 Comp Metabolic Tkp097 CO2 28.0 mEq/L 05/15/2017 Comp Metabolic Qfr283 ANION GAP 12 05/15/2017 Comp Metabolic Lvz722 GLUCOSE 103 mg/dL 05/15/2017 Comp Metabolic Ohc816 Creat 0.9 mg/dL 05/15/2017 Comp Metabolic Xta491 eGFR 62 ml/min/1.73m2 05/15/2017 Comp Metabolic Erq639 BUN 25 mg/dL 05/15/2017 Comp Metabolic Hlv127 B/C Ratio 26.9 Ratio 05/15/2017 Comp Metabolic Ctn485 CALCIUM 9.7 mg/dL 05/15/2017 Comp Metabolic Txo457 ALK PHOS 90 U/L 05/15/2017 Comp Metabolic Znb255 AST(SGOT) 15 U/L 05/15/2017 Comp Metabolic Soy423 ALT(SGPT) 10 U/L 05/15/2017 Comp Metabolic Zjc960 BILI T 0.4 mg/dL 05/15/2017 Comp Metabolic Ils474 ALBUMIN 3.7 g/dL 05/15/2017 Comp Metabolic Bif632 TPRO 5.9 g/dL 05/15/2017 Comp Metabolic Tgd028 GLOB 2.2 g/dL 05/15/2017 Comp Metabolic Bwc006 A/G Ratio 1.7 Ratio 05/15/2017 Comp Metabolic Kyg174 Osmo 278 mOsmo 05/15/2017 Comp Metabolic Cdj534 NA 136 mEq/L 06/13/2016 Comp Metabolic Nec035 K 4.5 mEq/L 06/13/2016 Comp Metabolic Lao390 CL 100 mEq/L 06/13/2016 Comp Metabolic Srb995 CO2 29.0 mEq/L 06/13/2016 Comp Metabolic Bsd847 ANION GAP 12 06/13/2016 Comp Metabolic Kxj476 GLUCOSE 106 mg/dL 06/13/2016 Comp Metabolic Kcf948 Creat 0.8 mg/dL 06/13/2016 Comp Metabolic Snf791 eGFR 77 ml/min/1.73m2 06/13/2016 Comp Metabolic Cjv906 BUN 19 mg/dL 06/13/2016 Comp Metabolic Nxy241 B/C Ratio 24.4 Ratio 06/13/2016 Comp Metabolic Bxr769 CALCIUM 10.1 mg/dL 06/13/2016 Comp Metabolic Cxc806 ALK PHOS 102 U/L 06/13/2016 Comp Metabolic Ukh443 AST(SGOT) 18 U/L 06/13/2016 Comp Metabolic Hqe631 ALT(SGPT) 15 U/L 06/13/2016 Comp Metabolic Dky762 BILI T 0.6 mg/dL 06/13/2016 Comp Metabolic Lir467 ALBUMIN 4.1 g/dL 06/13/2016 Comp Metabolic Ado550 TPRO 6.7 g/dL 06/13/2016 Comp Metabolic Raa873 GLOB 2.6 g/dL 06/13/2016 Comp Metabolic Wxd544 A/G Ratio 1.6 Ratio 06/13/2016 Comp Metabolic Jmq846 Osmo 275 mOsmo 06/13/2016 Cbc With Differential Ord2 WBC 8.19 K/ul 06/13/2016 Cbc With Differential Ord2 RBC 4.89 M/ul 06/13/2016 Cbc With Differential Ord2 HGB 13.5 g/dl 06/13/2016 Cbc With Differential Ord2 HCT 41.2 % 06/13/2016 Cbc With Differential Ord2 Neut% 67.5 % 06/13/2016 Cbc With Differential Ord2 MCV 84.3 fl 06/13/2016 Cbc With Differential Ord2 Lymph% 18.1 % 06/13/2016 Cbc With Differential Ord2 [place]% 8.3 % 06/13/2016 Cbc With Differential Ord2 MCH 27.6 pg 06/13/2016 Cbc With Differential Ord2 MCHC 32.8 pg 06/13/2016 Cbc With Differential Ord2 Eos% 5.7 % 06/13/2016 Cbc With Differential Ord2 PLT 334 K/ul 06/13/2016 Cbc With Differential Ord2 Baso% 0.4 % 06/13/2016 Cbc With Differential Ord2 Neut ABS# 5.53 K/ul 06/13/2016 Cbc With Differential Ord2 RDW 14.5 % 06/13/2016 Cbc With Differential Ord2 Lymph ABS# 1.48 K/ul 06/13/2016 Cbc With Differential Ord2 [place] ABS# 0.7 K/ul 06/13/2016 Cbc With Differential Ord2 Eos ABS# 0.5 K/ul 06/13/2016 Cbc With Differential Ord2 Baso ABS# 0.0 K/ul 06/13/2016 Lipid Ord30 CHOL 231 mg/dL 06/13/2016 Lipid Ord30 HDL 65.0 mg/dl 06/13/2016 Lipid Ord30 TRIG 108 mg/dL 06/13/2016 Lipid Ord30 LDL 144 mg/dL 06/13/2016 Lipid Ord30 C/HDL 3.6 Ratio 06/13/2016 Tsh Ord6 hTSH II 1.80 uIU/mL 06/13/2016 Review of Systems System Result Effective [...] Codes Date TRIM SKIN LESION CPT-4 : 07901 09/23/2017 INJ TRIGGER POINT 1/2 MUSCL CPT-4: 24133 07/12/2016 TRIAMCINOLONE ACET INJ NOS CPT-4: J3301 07/12/2016 Vital Signs Date Vital 06/02/2018 Blood Pressure 1: 140/82 Code : 8480-6 BMI: 32.1 Code : 39917-1 Heart Rate 1 : 77 bpm Height: 5'3" SpO2: 98% Temperature: 36.9 (C) / 98.4 (F) Weight: 181 lbs 02/07/2018 Blood Pressure 1: 128/72 Code : 8480-6 BMI: 31.0 Code : 17487-8 Heart Rate 1 : 68 bpm Height: 5'3" SpO2: 96% Weight: 175 lbs 09/23/2017 Blood Pressure 1: 12868 Code : 8480-6 BMI: 30.8 Code : 03731-7 Heart Rate 1 : 64 bpm Height: 5'3" SpO2: 97% Weight: 174 lbs 05/14/2017 Blood Pressure 1: 146/82 Code : 8480-6 BMI: 28.8 Code : 66812-8 Heart Rate 1 : 81 bpm Height: 5'3" SpO2: 100% Weight: 162 lbs 8 oz 08/08/2016 Blood Pressure 1: 126/76 Code : 8480-6 Heart Rate 1: 72 bpm Height: SpO2: 97% Weight: 07/12/2016 Blood Pressure 1: 138/76 Code : 8480-6 BMI: 30.1 Code : 89055-8 Heart Rate 1 : 81 bpm Height: 5'3" SpO2: 97% Weight: 170 lbs 07/10/2016 Blood Pressure 1: 132/80 Code : 8480-6 BMI: 30.1 Code : 57774-7 Heart Rate 1 : 76 bpm Height: 5'3" SpO2: 97% Weight: 170 lbs 06/28/2016 Blood Pressure 1: 144/82 Code : 8480-6 Heart Rate 1: 71 bpm Height: 5'3" SpO2: 98% Weight: 06/14/2016 Blood Pressure 1: 128/86 Code : 8480-6 Heart Rate 1: 86 bpm Height: SpO2: 96% Weight: 04/09/2016 Blood Pressure 1: 120/76 Code : 8480-6 BMI: 31.2 Code : 12825-7 Heart Rate 1 : 71 bpm Height: 5'3" SpO2: 98% Weight: 176 lbs 01/10/2016 Blood Pressure 1: 138/72 Code : 8480-6 BMI: 31.5 Code : 64219-1 Heart Rate 1 : 79 bpm Height: 5'3" SpO2: 99% Weight: 178 lbs 12/22/2015 Blood Pressure 1: 146/82 Code : 8480-6 Heart Rate 1: 73 bpm SpO2: 97% 12/14/2015 Blood Pressure 1: 178/88 Code : 8480-6 BMI: 31.9 Code : 84167-5 Heart Rate 1 : 78 bpm Height: [...] data Encounters Encounter Performer Location Codes Date ([id number]) [id number] EST. PATIENT, LEVEL III Diagnosis: Acute upper respiratory infection, unspecified[ICD10: J06.9] Celia Yadav MD, [facility] CPT-4: 32946 06/02/2018 [id number] EST. PATIENT, LEVEL II Diagnosis: Zoster without complications[ICD10: B02.9] Celia Yadav MD, [facility] CPT-4: 45398 02/07/2018 ([id number]) 56482 EST. PATIENT, LEVEL III Diagnosis: Essential (primary) hypertension[ICD10: I10] Bijal Yadav MD, [facility] CPT-4: 73900 09/23/2017 ([id number]) 06664 EST. PATIENT, LEVEL IV Diagnosis: Essential (primary) hypertension[ICD10: I10] Diagnosis: Muscle weakness (generalized)[ICD10: M62.81] Diagnosis: Other insomnia[ICD10: G47.09] Bijal Yadav MD, [facility] CPT- 4: 31267 05/14/2017 ([id number]) 07439 EST. PATIENT, LEVEL III Diagnosis: Right lower quadrant pain[ICD10: R10.31] Bijal Yadav MD, [facility] CPT-4: 68511 08/08/2016 ([id number]) 03625 EST. PATIENT, LEVEL III Diagnosis: Right lower quadrant pain[ICD10: R10.31] Bijal Yadav MD, [facility] CPT-4: 41460 07/10/2016 ([id number]) 57428 EST. PATIENT, LEVEL III Diagnosis: Right lower quadrant pain[ICD10: R10.31] Diagnosis: Drug induced constipation[ICD10: K59.03] Celia Yadav MD, [facility] CPT-4: 83680 06/28/2016 ([id number]) 80008 EST. PATIENT, LEVEL IV Diagnosis: Essential (primary) hypertension[ICD10: I10] Diagnosis: Major depressive disorder, single episode, mild[ICD10: F32.0] Celia Yadav MD, [facility] CPT-4: 01288 06/14/2016 [id number]) 33243 EST. PATIENT, LEVEL IV Diagnosis: Essential (primary) hypertension[ICD10: I10] Diagnosis: Varicose veins of bilateral lower extremities with pain[ICD10: I83.813] Diagnosis: Localized edema[ICD10: R60.0] Diagnosis: Pain in right shoulder[ICD10: M25.511] [facility] CPT-4: 66811 04/09/2016 ([id number]) 43053 EST. PATIENT, LEVEL III Diagnosis: Essential (primary) hypertension[ICD10: I10] Diagnosis: Varicose veins of bilateral lower extremities with pain[ICD10: I83.813] Diagnosis: Localized edema[ICD10: R60.0] Bijal Yadav MD, [facility] CPT- 4: 94687 01/10/2016 ([id number]) Miscellaneous no charge Diagnosis: Essential (primary) hypertension[ICD10: I10] Bijal Yadav MD, [facility] CPT-4: 61772 12/22/2015 ([id number]) OFFICE VISIT, NEW - LEVEL 4 Diagnosis: Essential (primary) hypertension[ICD10: I10] Diagnosis: Localized edema[ICD10: R60.0] Diagnosis: Varicose veins of bilateral lower extremities with pain[ICD10: I83.813] Bijal Yadav MD, [facility] CPT-4: 98428 2015 Plan of Care Planned Activity Notes Codes Status Date Visit Plan: URI - Pt advised to increase fluids, vitamin C. Discussed natural and expected course of this diagnosis and need to alert me if symptoms do not follow expected course, or if any worse. RX sent to patient' s pharmacy. 06/02/2018 Appointment: Celia Singleton WPtel: [address] [place], [place] [phone] (30 min) [facility] 06/02/2018 Patient Education: Patient Medication Summary Completed [...] considered contagious. 02/07/2018 Appointment: Celia Singleton WPtel: [phone] (15 min) Moderate 02/07/2018 Patient Education: Patient Medication Summary Completed 02/07/2018 Appointment: Bijal Yadav WPtel: [phone] (15 min) Moderate 11/05/2017 Visit Plan: Hypertension [...] daily. 09/23/2017 Appointment: Bijal Yadav WPtel: [phone] [phone] (15 min) Moderate 09/23/2017 Patient Education: Patient [...] units daily. 05/14/2017 Appointment: [facility]adav [facility] [place] [place] (15 min) Moderate 05/14/2017 Patient Education: Patient Medication Summary Completed 05/14/2017 Visit Plan: Abdominal pain - uncontrolled - pt to increase lyrica to 50mg tid - referral back up to [facility] - I suspect hernia - but imaging [...] pain. 08/08/2016 Appointment: [facility] [phone] [place] [place] (15 min) Moderate 08/08/2016 Patient Education: [...] to specialist. 07/12/2016 Appointment: [facility] [phone] [place] [place] (10 min) Simple 07/12/2016 Patient Education: Patient Medication Summary Completed 07/12/2016 Visit Plan: Abdominal pain - uncontrolled - rx for lidoderm patch - or use over the counter lidoderm patches - call if not improved - rx for cyclobenzaprine 07/10/2016 Appointment: [facility] [phone] [place] [place] (15 min) Moderate 07/10/2016 Patient Education: [...] mobility. 06/14/2016 [phone] (30 min) Complex 06/14/2016 Patient Education: Patient [...] vein treatment. 04/09/2016 Appointment: Bijal Yadav WPtel: [phone] [facility] [place] (15 min) Moderate 04/09/2016 Patient Education: [...] Dr. Denney. 01/10/2016 Appointment: Bijal Yadav WPtel: [facility] [place] (15 min) Moderate 01/10/2016 Patient Education: Patient [...]
--- OUTSIDE RECORDS SUMMARY | 2018-10-23 23:16 | XMS REPORT | CCD ---
Author Author [facility]al [facility] Organization [facility] Address [address] [place] [address] Phone Care Team Providers Care Natural Developer Name Role Phone PP Unavailable CCM Unavailable Summary Purpose Interface Exchange Insurance Providers Payer name Policy type / Coverage type Covered green party ID Effective Begin Date Effective End Date [place] Medicare Part B [id number] 2015 Unknown [facility] Medicare Part B [id number] 2015 Unknown Family history Mother Diagnosis Age At Onset Hypertension Unknown Heart Attack Unknown Father Diagnosis Age At Onset Colon cancer Unknown Brother Diagnosis Age At Onset Cancer Unknown Social History Social History Element Codes Description Effective Dates Marital status Unknown 12/14/2015 Number of children Unknown 1 12/14/2015 Employment Unknown Retired 12/14/[address]: 113305771 Never smoker 12/14/[address]: 018756586 Never drinks alcohol 12/14/2015 Has the patient [...] Start Date Stop Date Status Fill Instructions Zithromax Z-Benjamin 250 mg tablet RxNorm: 135803 1 Tablet(s) PO UD 06/02/2018 06/06/2018 Active Flonase Allergy Relief 50 mcg/actuation nasal spray, suspension RxNorm: 5511026 2 [place] NASAL daily 06/02/20182017 Active ipratropium bromide 42 mcg (0.06 %) nasal spray RxNorm: 3978005 1 [place] NASAL daily 02/07/2018 02/01/2019 Active acyclovir 400 mg tablet RxNorm: 175072 2 Tablet(s) PO QID 02/0702/06/2018 Inactive acyclovir 400 mg tablet RxNorm: 494438 2 Tablet(s) PO QID 02/0702/16/2018 Inactive meloxicam 15 mg tablet RxNorm: 982486 TAKE 1 TABLET EVERY DAY 08/21/2017 08/15/2018 Active metformin 500 mg tablet RxNorm: 707833 1 Tablet(s) PO daily 07/201707/13/2018 Active losartan 50 mg tablet RxNorm: 346194 1 Tablet(s) PO daily 201707/13/2018 Active bisoprolol fumarate 5 mg tablet RxNorm: 952315 1 Tablet(s) PO daily 07/19/2017 07/13/2018 Active Phenergan-Codeine 6.25 mg-10 mg/5 mL syrup RxNorm: 060428 5-10 Milliliter(s) PO Q6 as needed 07/18/2017 07/17/2017 Inactive cefdinir 300 mg capsule RxNorm: 156665 1 Capsule(s) PO BID 06/201707/27/2017 Inactive Phenergan-Codeine 6.25 mg-10 mg/5 mL syrup RxNorm: 470060 5-10 Milliliter(s) PO Q6 as needed 07/18/2017 07/23/2017 Inactive cefdinir 300 mg capsule RxNorm: 312890 1 Capsule(s) PO BID 06/201707/17/2017 Inactive Zithromax Z-Benjamin 250 mg tablet RxNorm: 804406 1 Tablet(s) PO UD 07/16/2017 09/22/2017 Inactive z pack as directed ipratropium bromide 0.06 % nasal spray RxNorm: 6402564 1 [place] NASAL daily 04/08/2017 02/06/2018 Inactive ipratropium bromide 0.06 % nasal spray RxNorm: 8246382 1 [place] NASAL daily 04/05/2017 04/07/2017 Inactive metformin 500 mg tablet RxNorm: 775722 1 Tablet(s) PO daily 07/18/2017 Inactive potassium chloride ER 20 mEq tablet,extended release RxNorm: 834003 1 Tablet(s) PO daily as needed for leg cramps 10/03/2016 03/31/2017 Inactive potassium chloride 20 meq RxNorm: 1 PO daily as needed for leg cramps 10/03/2016 10/02/2016 Inactive metformin 500 mg tablet RxNorm: 571269 1 Tablet(s) PO daily 10/02/2016 Inactive losartan 50 mg tablet RxNorm: 860231 1 Tablet(s) PO daily 201607/18/2017 Inactive bisoprolol fumarate 5 mg tablet RxNorm: 902552 1 Tablet(s) PO daily 10/02/2016 07/18/2017 Inactive meloxicam 15 mg tablet RxNorm: 053255 1 Tablet(s) PO daily 03/201708/18/2017 Inactive Zithromax Z-Benjamin 250 mg tablet RxNorm: 297294 1 Tablet(s) PO UD 07/17/2016 08/16/2016 Inactive z pack as directed cyclobenzaprine 5 mg tablet RxNorm: 419397 1/2 - 1 Tablet(s) PO TID as needed muscle spasms 07/10/2016 08/08/2016 Inactive meloxicam 15 mg tablet RxNorm: 128105 1 Tablet(s) PO daily 08/23/2016 Inactive losartan 50 mg tablet RxNorm: 827899 1 Tablet(s) PO daily 201510/01/2016 Inactive losartan 50 mg tablet RxNorm: 657875 1 Tablet(s) PO daily 201501/09/2016 Inactive losartan 50 mg tablet RxNorm: 808876 1 Tablet(s) PO daily 201512/14/2015 Inactive Glucosamine-Chondroitin Complex oral RxNorm: oral No Start Date Active Low-Dose Aspirin 81 mg tablet RxNorm: 928389 1 Tablet(s) PO daily No Start Date Active Vitamin D3 1,000 unit tablet RxNorm: 195091 1 Tablet(s) PO daily No Start Date Active Gravelly-3 Fish Oil 300 mg-1,000 mg capsule RxNorm: 1 Capsule(s) PO TID No Start Date Active Vitamin C 500 mg tablet RxNorm: 259285 1 Tablet(s) PO daily No Start Date Active Vitamin B-12 1,000 mcg tablet RxNorm: 699976 1 Tablet(s) PO daily No Start Date Active Slow Fe oral RxNorm: 87048 oral No Start Date Active Aleve 220 mg tablet RxNorm: 340751 1 Tablet(s) PO daily No Start Date 05/13/2017 Inactive meloxicam 15 mg tablet RxNorm: 628152 1 Tablet(s) PO daily No Start Date 12/13/2015 Inactive Zithromax Z-Benjamin 250 mg tablet RxNorm: 582848 1 Tablet(s) PO UD No Start Date 07/16/2016 Inactive z pack as directed gabapentin 100 mg capsule RxNorm: 598633 1 Capsule(s) PO TID No Start Date 05/13/2017 Inactive ipratropium bromide 0.06 % nasal spray RxNorm: 1989747 [place] NASAL No Start Date 04/04/2017 Inactive bisoprolol fumarate 5 mg tablet RxNorm: 538110 1 Tablet(s) PO daily No Start Date 10/01/2016 Inactive oxycodone-acetaminophen 5 mg-325 mg tablet RxNorm: 8151226 2 Tablet(s) PO as needed No Start [...] Ord90 Mag 1.8 mg/dL 05/15/2017 Comp Metabolic Kwm143 NA 137 mEq/L 05/15/2017 Comp Metabolic Jfy530 K 4.5 mEq/L 05/15/2017 Comp Metabolic Drz113 CL 102 mEq/L 05/15/2017 Comp Metabolic Omb116 CO2 28.0 mEq/L 05/15/2017 Comp Metabolic Hrz972 ANION GAP 12 05/15/2017 Comp Metabolic Jqa378 GLUCOSE 103 mg/dL 05/15/2017 Comp Metabolic Tks767 Creat 0.9 mg/dL 05/15/2017 Comp Metabolic Fuq464 eGFR 62 ml/min/1.73m2 05/15/2017 Comp Metabolic Rzh612 BUN 25 mg/dL 05/15/2017 Comp Metabolic Kgc427 B/C Ratio 26.9 Ratio 05/15/2017 Comp Metabolic Alv060 CALCIUM 9.7 mg/dL 05/15/2017 Comp Metabolic Mut346 ALK PHOS 90 U/L 05/15/2017 Comp Metabolic Bkj848 AST(SGOT) 15 U/L 05/15/2017 Comp Metabolic Rni337 ALT(SGPT) 10 U/L 05/15/2017 Comp Metabolic Ccy762 BILI T 0.4 mg/dL 05/15/2017 Comp Metabolic Lrd604 ALBUMIN 3.7 g/dL 05/15/2017 Comp Metabolic Bfa539 TPRO 5.9 g/dL 05/15/2017 Comp Metabolic Zwx654 GLOB 2.2 g/dL 05/15/2017 Comp Metabolic Hiz398 A/G Ratio 1.7 Ratio 05/15/2017 Comp Metabolic Miw760 Osmo 278 mOsmo 05/15/2017 Cbc With Differential [...] 27.2 pg 05/15/2017 Cbc With Differential Ord2 [place]% 12.2 % 05/15/2017 Cbc With Differential Ord2 Eos% 8.7 % 05/15/2017 Cbc With Differential Ord2 MCHC 31.8 pg 05/15/2017 Cbc With Differential Ord2 PLT 353 K/ul 05/15/2017 Cbc With Differential Ord2 Baso% 0.3 % 05/15/2017 Cbc With Differential Ord2 Neut ABS# 3.24 K/ul 05/15/2017 Cbc With Differential Ord2 RDW 14.4 % 05/15/2017 Cbc With Differential Ord2 Lymph ABS# 1.74 K/ul 05/15/2017 Cbc With Differential Ord2 [place] ABS# 0.8 K/ul 05/15/2017 Cbc With Differential [...] 27.6 pg 06/13/2016 Cbc With Differential Ord2 [place]% 8.3 % 06/13/2016 Cbc With Differential Ord2 Eos% 5.7 % 06/13/2016 Cbc With Differential Ord2 MCHC 32.8 pg 06/13/2016 Cbc With Differential Ord2 Baso% 0.4 % 06/13/2016 Cbc With Differential Ord2 PLT 334 K/ul 06/13/2016 Cbc With Differential Ord2 RDW 14.5 % 06/13/2016 Cbc With Differential Ord2 Neut ABS# 5.53 K/ul 06/13/2016 Cbc With Differential Ord2 Lymph ABS# 1.48 K/ul 06/13/2016 Cbc With Differential Ord2 [place] ABS# 0.7 K/ul 06/13/2016 Cbc With Differential Ord2 Eos ABS# 0.5 K/ul 06/13/2016 Cbc With Differential Ord2 Baso ABS# 0.0 K/ul 06/13/2016 Tsh Ord6 hTSH II 1.80 uIU/mL 06/13/2016 Comp Metabolic Paq617 NA 136 mEq/L 06/13/2016 Comp Metabolic Uit544 K 4.5 mEq/L 06/13/2016 Comp Metabolic Dzs850 CL 100 mEq/L 06/13/2016 Comp Metabolic Rgo542 CO2 29.0 mEq/L 06/13/2016 Comp Metabolic Lmt546 ANION GAP 12 06/13/2016 Comp Metabolic Nat893 GLUCOSE 106 mg/dL 06/13/2016 Comp Metabolic Hmu729 Creat 0.8 mg/dL 06/13/2016 Comp Metabolic Wvi009 eGFR 77 ml/min/1.73m2 06/13/2016 Comp Metabolic Pbl177 BUN 19 mg/dL 06/13/2016 Comp Metabolic Fmc759 B/C Ratio 24.4 Ratio 06/13/2016 Comp Metabolic Lng584 CALCIUM 10.1 mg/dL 06/13/2016 Comp Metabolic Uee009 ALK PHOS 102 U/L 06/13/2016 Comp Metabolic Zkb526 AST(SGOT) 18 U/L 06/13/2016 Comp Metabolic Hur670 ALT(SGPT) 15 U/L 06/13/2016 Comp Metabolic Ogv706 BILI T 0.6 mg/dL 06/13/2016 Comp Metabolic Vpu436 ALBUMIN 4.1 g/dL 06/13/2016 Comp Metabolic Rqm303 TPRO 6.7 g/dL 06/13/2016 Comp Metabolic Ljk046 GLOB 2.6 g/dL 06/13/2016 Comp Metabolic Eir383 A/G Ratio 1.6 Ratio 06/13/2016 Comp Metabolic Naf917 Osmo 275 mOsmo 06/13/2016 Review of Systems [...] Codes Date TRIM SKIN LESION CPT-4 : 19081 09/23/2017 INJ TRIGGER POINT 1/2 MUSCL CPT-4: 95175 07/12/2016 TRIAMCINOLONE ACET INJ NOS CPT-4: J3301 07/12/2016 Vital Signs Date Vital 06/02/2018 Blood Pressure 1: 140/82 Code : 8480-6 BMI: 32.1 Code : 07464-2 Heart Rate 1 : 77 bpm Height: 5'3" SpO2: 98% Temperature: 36.9 (C) / 98.4 (F) Weight: 181 lbs 02/07/2018 Blood Pressure 1: 128/72 Code : 8480-6 BMI: 31.0 Code : 91986-4 Heart Rate 1 : 68 bpm Height: 5'3" SpO2: 96% Weight: 175 lbs 09/23/2017 Blood Pressure 1: 128/68 Code : 8480-6 BMI: 30.8 Code : 59890-0 Heart Rate 1 : 64 bpm Height: 5'3" SpO2: 97% Weight: 174 lbs 05/14/2017 Blood Pressure 1: 146/82 Code : 8480-6 BMI: 28.8 Code : 87865-8 Heart Rate 1 : 81 bpm Height: 5'3" SpO2: 100% Weight: 162 lbs 8 oz 08/08/2016 Blood Pressure 1: 126/76 Code : 8480-6 Heart Rate 1: 72 bpm Height: SpO2: 97% Weight: 07/12/2016 Blood Pressure 1: 138/76 Code : 8480-6 BMI: 30.1 Code : 13253-1 Heart Rate 1 : 81 bpm Height: 5'3" SpO2: 97% Weight: 170 lbs 07/10/2016 Blood Pressure 1: 132/80 Code : 8480-6 BMI: 30.1 Code : 51607-4 Heart Rate 1 : 76 bpm Height: 5'3" SpO2: 97% Weight: 170 lbs 06/28/2016 Blood Pressure 1: 144/82 Code : 8480-6 Heart Rate 1: 71 bpm Height: 5'3" SpO2: 98% Weight: 06/14/2016 Blood Pressure 1: 128/86 Code : 8480-6 Heart Rate 1: 86 bpm Height: SpO2: 96% Weight: 04/09/2016 Blood Pressure 1: 120/76 Code : 8480-6 BMI: 31.2 Code : 48279-7 Heart Rate 1 : 71 bpm Height: 5'3" SpO2: 98% Weight: 176 lbs 01/10/2016 Blood Pressure 1: 138/72 Code : 8480-6 BMI: 31.5 Code : 04919-8 Heart Rate 1 : 79 bpm Height: 5'3" SpO2: 99% Weight: 178 lbs 12/22/2015 Blood Pressure 1: 146/82 Code : 8480-6 Heart Rate 1: 73 bpm SpO2: 97% 12/14/2015 Blood Pressure 1: 178/88 Code : 8480-6 BMI: 31.9 Code : 22142-7 Heart Rate 1 : 78 bpm Height: [...] data Encounters Encounter Performer Location Codes Date () 27255 EST. PATIENT, LEVEL III Diagnosis: Acute upper respiratory infection, unspecified[ICD10: J06.9] Celia Yadav MD, [facility] CPT-4: 00453 06/02/2018 16397 EST. PATIENT, LEVEL II Diagnosis: Zoster without complications[ICD10: B02.9] Celia Yadav MD, [facility] CPT-4: 05161 02/07/2018 ([id number]) 67254 EST. PATIENT, LEVEL III Diagnosis: Essential (primary) hypertension[ICD10: I10] Bijal Yadav MD, [facility] CPT-4: 92091 09/23/2017 ([id number]) 55150 EST. PATIENT, LEVEL IV Diagnosis: Essential (primary) hypertension[ICD10: I10] Diagnosis: Muscle weakness (generalized)[ICD10: M62.81] Diagnosis: Other insomnia[ICD10: G47.09] Bijal Yadav MD, [facility] CPT- 4: 01802 05/14/2017 ([id number]) 36232 EST. PATIENT, LEVEL III Diagnosis: Right lower quadrant pain[ICD10: R10.31] Bijal Yadav MD, [facility] CPT-4: 24599 08/08/2016 ([id number]) 49183 EST. PATIENT, LEVEL III Diagnosis: Right lower quadrant pain[ICD10: R10.31] Bijal Yadav MD, [facility] CPT-4: 78819 07/10/2016 ([id number]) 24017 EST. PATIENT, LEVEL III Diagnosis: Right lower quadrant pain[ICD10: R10.31] Diagnosis: Drug induced constipation[ICD10: K59.03] Celia Yadav MD, [facility] CPT-4: 56792 06/28/2016 ([id number]) 84751 EST. PATIENT, LEVEL IV Diagnosis: Essential (primary) hypertension[ICD10: I10] Diagnosis: Major depressive disorder, single episode, mild[ICD10: F32.0] Celia Yadav MD, [facility] CPT-4: 95424 06/14/2016 ([id number]) 80061 EST. PATIENT, LEVEL IV Diagnosis: Essential (primary) hypertension[ICD10: I10] Diagnosis: Varicose veins of bilateral lower extremities with pain[ICD10: I83.813] Diagnosis: Localized edema[ICD10: R60.0] Diagnosis: Pain in right shoulder[ICD10: M25.511] [facility] CPT-4: 94606 04/09/2016 ([id number]) 21956 EST. PATIENT, LEVEL III Diagnosis: Essential (primary) hypertension[ICD10: I10] Diagnosis: Varicose veins of bilateral lower extremities with pain[ICD10: I83.813] Diagnosis: Localized edema[ICD10: R60.0] [facility] CPT- 4: 26849 01/10/2016 ([id number]) Miscellaneous no charge Diagnosis: Essential (primary) hypertension[ICD10: I10] [facility] CPT-4: 87059 12/22/2015 ([id number]) OFFICE VISIT, NEW - LEVEL 4 Diagnosis: Essential (primary) hypertension[ICD10: I10] Diagnosis: Localized edema[ICD10: R60.0] Diagnosis: Varicose veins of bilateral lower extremities with pain[ICD10: I83.813] [facility] CPT-4: 40396 2015 Plan of Care Planned Activity Notes Codes Status Date Visit Plan: URI - Pt advised to increase fluids, vitamin C. Discussed natural and expected course of this diagnosis and need to alert me if symptoms do not follow expected course, or if any worse. RX sent to patient' s pharmacy. 06/02/2018 Patient Education: Patient Medication Summary Completed [...] considered contagious. 02/07/2018 [facility] [phone] [phone] [place] (15 min) Moderate 02/07/2018 Patient Education: Patient Medication Summary Completed 02/07/2018 [facility] [phone] [facility] [place] (15 min) Moderate 11/05/2017 Visit Plan: Hypertension [...] units daily. 09/23/2017 App[facility]ment[facility] [phone] [facility] [place] (15 min) Moderate 09/23/2017 Patient Education: Patient [...] units daily. 05/14/2017 App[facility] [phone] [facility] [place] (15 min) Moderate 05/14/2017 Patient Education: [...] pain. 08/08/2016 Appointment: Bijal Yadav WPtel: [phone] [phone] (15 min) Moderate 08/08/2016 Patient Education: Patient [...] to specialist. 07/12/2016 Appointment: Bijal Yadav WPtel: [phone] [facility] (10 min) Simple 07/12/2016 Patient Education: Patient Medication Summary Completed 07/12/2016 Visit Plan: Abdominal pain - uncontrolled - rx for lidoderm patch - or use over the counter lidoderm patches - call if not improved - rx for cyclobenzaprine 07/10/2016 Appointment: Bijal Yadav WPtel: [phone] [phone] (15 min) Moderate 07/10/2016 Patient Education: Patient [...] increased mobility. 06/14/2016 Appointment: Celia Singleton WPtel: [phone] (30 min) Complex 06/14/2016 Patient Education: Patient [...] vein treatment. 04/09/2016 Appointment: Bijal Yadav WPtel: [facility] (15 min) Moderate 04/09/2016 Patient Education: Patient [...] Dr. Denney. 01/10/2016 Appointment: [facility]av [facility]Ptel[facility] [place] (15 min) Moderate 01/10/2016 Patient Education: Patient [...]
--- OUTSIDE RECORDS SUMMARY | 2018-10-23 23:17 | XMS REPORT | CCD ---
Author Author [facility] Organization [facility] Address [address] [place] [address] Phone Care Team Providers Care Sports Equipment Repairer Name Role Phone PP Unavailable CCM Unavailable Summary Purpose Interface Exchange Insurance Providers Payer name Policy type / Coverage type Covered republican ID Effective Begin Date Effective End Date [place] A Medicare Part B [id number] 2015 Unknown [facility] Medicare Part B [id number] 2015 Unknown Family history Mother Diagnosis Age At Onset Hypertension Unknown Heart Attack Unknown Father Diagnosis Age At Onset Colon cancer Unknown Brother Diagnosis Age At Onset Cancer Unknown Social History Social History Element Codes Description Effective Dates Marital status Unknown 12/14/2015 Number of children Unknown 1 12/14/2015 Employment Unknown Retired 12/14/[address]: 685958847 Never smoker 12/14/[address]: 065822861 Never drinks alcohol 12/14/2015 Has the patient [...] Instructions Zithromax Z-Benjamin 250 mg tablet RxNorm: 705670 1 Tablet(s) PO UD 06/02/2018 06/06/2018 Active Flonase Allergy Relief 50 mcg/actuation nasal spray, suspension RxNorm: 8143997 2 [place] NASAL daily 06/02/20182017 Active ipratropium bromide 42 mcg (0.06 %) nasal spray RxNorm: 1865237 1 [place] NASAL daily 02/07/2018 02/01/2019 Active acyclovir 400 mg tablet RxNorm: 143236 2 Tablet(s) PO QID 02/0702/06/2018 Inactive acyclovir 400 mg tablet RxNorm: 098117 2 Tablet(s) PO QID 02/0702/16/2018 Inactive meloxicam 15 mg tablet RxNorm: 239679 TAKE 1 TABLET EVERY DAY 08/21/2017 08/15/2018 Active metformin 500 mg tablet RxNorm: 655257 1 Tablet(s) PO daily 07/201707/13/2018 Active losartan 50 mg tablet RxNorm: 860996 1 Tablet(s) PO daily 201707/13/2018 Active bisoprolol fumarate 5 mg tablet RxNorm: 790448 1 Tablet(s) PO daily 07/19/2017 07/13/2018 Active Phenergan-Codeine 6.25 mg-10 mg/5 mL syrup RxNorm: 019149 5-10 Milliliter(s) PO Q6 as needed 07/18/2017 07/17/2017 Inactive cefdinir 300 mg capsule RxNorm: 001898 1 Capsule(s) PO BID 06/201707/27/2017 Inactive Phenergan-Codeine 6.25 mg-10 mg/5 mL syrup RxNorm: 398528 5-10 Milliliter(s) PO Q6 as needed 07/18/2017 07/23/2017 Inactive cefdinir 300 mg capsule RxNorm: 517140 1 Capsule(s) PO BID 06/201707/17/2017 Inactive Zithromax Z-Benjamin 250 mg tablet RxNorm: 302872 1 Tablet(s) PO UD 07/16/2017 09/22/2017 Inactive z pack as directed ipratropium bromide 0.06 % nasal spray RxNorm: 6156640 1 [place] NASAL daily 04/08/2017 02/06/2018 Inactive ipratropium bromide 0.06 % nasal spray RxNorm: 9756954 1 [place] NASAL daily 04/05/2017 04/07/2017 Inactive metformin 500 mg tablet RxNorm: 537158 1 Tablet(s) PO daily 07/18/2017 Inactive potassium chloride ER 20 mEq tablet,extended release RxNorm: 947940 1 Tablet(s) PO daily as needed for leg cramps 10/03/2016 03/31/2017 Inactive potassium chloride 20 meq RxNorm: 1 PO daily as needed for leg cramps 10/03/2016 10/02/2016 Inactive metformin 500 mg tablet RxNorm: 504758 1 Tablet(s) PO daily 10/02/2016 Inactive losartan 50 mg tablet RxNorm: 170193 1 Tablet(s) PO daily 201607/18/2017 Inactive bisoprolol fumarate 5 mg tablet RxNorm: 908024 1 Tablet(s) PO daily 10/02/2016 07/18/2017 Inactive meloxicam 15 mg tablet RxNorm: 902211 1 Tablet(s) PO daily 03/201708/18/2017 Inactive Zithromax Z-Benjamin 250 mg tablet RxNorm: 246467 1 Tablet(s) PO UD 07/17/2016 08/16/2016 Inactive z pack as directed cyclobenzaprine 5 mg tablet RxNorm: 107566 1/2 - 1 Tablet(s) PO TID as needed muscle spasms 07/10/2016 08/08/2016 Inactive meloxicam 15 mg tablet RxNorm: 082861 1 Tablet(s) PO daily 08/23/2016 Inactive losartan 50 mg tablet RxNorm: 237044 1 Tablet(s) PO daily 201510/01/2016 Inactive losartan 50 mg tablet RxNorm: 643122 1 Tablet(s) PO daily 201501/09/2016 Inactive losartan 50 mg tablet RxNorm: 721416 1 Tablet(s) PO daily 201512/14/2015 Inactive Glucosamine-Chondroitin Complex oral RxNorm: oral No Start Date Active Low-Dose Aspirin 81 mg tablet RxNorm: 460840 1 Tablet(s) PO daily No Start Date Active Vitamin D3 1,000 unit tablet RxNorm: 122348 1 Tablet(s) PO daily No Start Date Active [place]-3 Fish Oil 300 mg-1,000 mg capsule RxNorm: 1 Capsule(s) PO TID No Start Date Active Vitamin C 500 mg tablet RxNorm: 315488 1 Tablet(s) PO daily No Start Date Active Vitamin B-12 1,000 mcg tablet RxNorm: 310773 1 Tablet(s) PO daily No Start Date Active Slow Fe oral RxNorm: 74356 oral No Start Date Active Aleve 220 mg tablet RxNorm: 677273 1 Tablet(s) PO daily No Start Date 05/13/2017 Inactive meloxicam 15 mg tablet RxNorm: 176936 1 Tablet(s) PO daily No Start Date 12/13/2015 Inactive Zithromax Z-Benjamin 250 mg tablet RxNorm: 064065 1 Tablet(s) PO UD No Start Date 07/16/2016 Inactive z pack as directed gabapentin 100 mg capsule RxNorm: 088601 1 Capsule(s) PO TID No Start Date 05/13/2017 Inactive ipratropium bromide 0.06 % nasal spray RxNorm: 8927438 [place] NASAL No Start Date 04/04/2017 Inactive bisoprolol fumarate 5 mg tablet RxNorm: 870021 1 Tablet(s) PO daily No Start Date 10/01/2016 Inactive oxycodone-acetaminophen 5 mg-325 mg tablet RxNorm: 2024503 2 Tablet(s) PO as needed No Start [...] Ord90 Mag 1.8 mg/dL 05/15/2017 Comp Metabolic Thr953 NA 137 mEq/L 05/15/2017 Comp Metabolic Jvp526 K 4.5 mEq/L 05/15/2017 Comp Metabolic Rjj627 CL 102 mEq/L 05/15/2017 Comp Metabolic Ykn021 CO2 28.0 mEq/L 05/15/2017 Comp Metabolic Krh845 ANION GAP 12 05/15/2017 Comp Metabolic Vbu876 GLUCOSE 103 mg/dL 05/15/2017 Comp Metabolic Jlt268 Creat 0.9 mg/dL 05/15/2017 Comp Metabolic Xho717 eGFR 62 ml/min/1.73m2 05/15/2017 Comp Metabolic Bnj716 BUN 25 mg/dL 05/15/2017 Comp Metabolic Rhr020 B/C Ratio 26.9 Ratio 05/15/2017 Comp Metabolic Ope252 CALCIUM 9.7 mg/dL 05/15/2017 Comp Metabolic Orx943 ALK PHOS 90 U/L 05/15/2017 Comp Metabolic Ntr458 AST(SGOT) 15 U/L 05/15/2017 Comp Metabolic Jmr206 ALT(SGPT) 10 U/L 05/15/2017 Comp Metabolic Oua786 BILI T 0.4 mg/dL 05/15/2017 Comp Metabolic Bky559 ALBUMIN 3.7 g/dL 05/15/2017 Comp Metabolic Fga919 TPRO 5.9 g/dL 05/15/2017 Comp Metabolic Sab882 GLOB 2.2 g/dL 05/15/2017 Comp Metabolic Jkx298 A/G Ratio 1.7 Ratio 05/15/2017 Comp Metabolic Zfd940 Osmo 278 mOsmo 05/15/2017 Cbc With Differential [...] 27.2 pg 05/15/2017 Cbc With Differential Ord2 [place]% 12.2 % 05/15/2017 Cbc With Differential Ord2 [...] 1.74 K/ul 05/15/2017 Cbc With Differential Ord2 [place] ABS# 0.8 K/ul 05/15/2017 Cbc With Differential [...] 27.6 pg 06/13/2016 Cbc With Differential Ord2 [place]% 8.3 % 06/13/2016 Cbc With Differential Ord2 [...] 1.48 K/ul 06/13/2016 Cbc With Differential Ord2 [place] ABS# 0.7 K/ul 06/13/2016 Cbc With Differential Ord2 Eos ABS# 0.5 K/ul 06/13/2016 Cbc With Differential Ord2 Baso ABS# 0.0 K/ul 06/13/2016 Tsh Ord6 hTSH II 1.80 uIU/mL 06/13/2016 Comp Metabolic Jbs086 NA 136 mEq/L 06/13/2016 Comp Metabolic Mho862 K 4.5 mEq/L 06/13/2016 Comp Metabolic Czd633 CL 100 mEq/L 06/13/2016 Comp Metabolic Aqp677 CO2 29.0 mEq/L 06/13/2016 Comp Metabolic Fpm597 ANION GAP 12 06/13/2016 Comp Metabolic Ugp180 GLUCOSE 106 mg/dL 06/13/2016 Comp Metabolic Ioi249 Creat 0.8 mg/dL 06/13/2016 Comp Metabolic Mbj227 eGFR 77 ml/min/1.73m2 06/13/2016 Comp Metabolic Uns341 BUN 19 mg/dL 06/13/2016 Comp Metabolic Laf949 B/C Ratio 24.4 Ratio 06/13/2016 Comp Metabolic Lzn249 CALCIUM 10.1 mg/dL 06/13/2016 Comp Metabolic Ydd901 ALK PHOS 102 U/L 06/13/2016 Comp Metabolic Bcl262 AST(SGOT) 18 U/L 06/13/2016 Comp Metabolic Nom916 ALT(SGPT) 15 U/L 06/13/2016 Comp Metabolic Nhe042 BILI T 0.6 mg/dL 06/13/2016 Comp Metabolic Fxq435 ALBUMIN 4.1 g/dL 06/13/2016 Comp Metabolic Nwp108 TPRO 6.7 g/dL 06/13/2016 Comp Metabolic Tgw175 GLOB 2.6 g/dL 06/13/2016 Comp Metabolic Ixo954 A/G Ratio 1.6 Ratio 06/13/2016 Comp Metabolic Yta051 Osmo 275 mOsmo 06/13/2016 Review of Systems [...] Codes Date TRIM SKIN LESION CPT-4 : 27288 09/23/2017 INJ TRIGGER POINT 1/2 MUSCL CPT-4: 12840 07/12/2016 TRIAMCINOLONE ACET INJ NOS CPT-4: J3301 07/12/2016 Vital Signs Date Vital 06/02/2018 Blood Pressure 1: 140/82 Code : 8480-6 BMI: 32.1 Code : 68604-3 Heart Rate 1 : 77 bpm Height: 5'3" SpO2: 98% Temperature: 36.9 (C) / 98.4 (F) Weight: 181 lbs 02/07/2018 Blood Pressure 1: 128/72 Code : 8480-6 BMI: 31.0 Code : 96329-9 Heart Rate 1 : 68 bpm Height: 5'3" SpO2: 96% Weight: 175 lbs 09/23/2017 Blood Pressure 1: 128/68 Code : 8480-6 BMI: 30.8 Code : 01905-4 Heart Rate 1 : 64 bpm Height: 5'3" SpO2: 97% Weight: 174 lbs 05/14/2017 Blood Pressure 1: 146/82 Code : 8480-6 BMI: 28.8 Code : 26466-6 Heart Rate 1 : 81 bpm Height: 5'3" SpO2: 100% Weight: 162 lbs 8 oz 08/08/2016 Blood Pressure 1: 126/76 Code : 8480-6 Heart Rate 1: 72 bpm Height: SpO2: 97% Weight: 07/12/2016 Blood Pressure 1: 138/76 Code : 8480-6 BMI: 30.1 Code : 36358-7 Heart Rate 1 : 81 bpm Height: 5'3" SpO2: 97% Weight: 170 lbs 07/10/2016 Blood Pressure 1: 132/80 Code : 8480-6 BMI: 30.1 Code : 43583-2 Heart Rate 1 : 76 bpm Height: 5'3" SpO2: 97% Weight: 170 lbs 06/28/2016 Blood Pressure 1: 144/82 Code : 8480-6 Heart Rate 1: 71 bpm Height: 5'3" SpO2: 98% Weight: 06/14/2016 Blood Pressure 1: 128/86 Code : 8480-6 Heart Rate 1: 86 bpm Height: SpO2: 96% Weight: 04/09/2016 Blood Pressure 1: 120/76 Code : 8480-6 BMI: 31.2 Code : 62787-3 Heart Rate 1 : 71 bpm Height: 5'3" SpO2: 98% Weight: 176 lbs 01/10/2016 Blood Pressure 1: 138/72 Code : 8480-6 BMI: 31.5 Code : 65014-3 Heart Rate 1 : 79 bpm Height: 5'3" SpO2: 99% Weight: 178 lbs 12/22/2015 Blood Pressure 1: 146/82 Code : 8480-6 Heart Rate 1: 73 bpm SpO2: 97% 12/14/2015 Blood Pressure 1: 178/88 Code : 8480-6 BMI: 31.9 Code : 15922-5 Heart Rate 1 : 78 bpm Height: [...] Encounters Encounter Performer Location Codes Date () 18704 EST. PATIENT, LEVEL III Diagnosis: Acute upper respiratory infection, unspecified[ICD10: J06.9] Celia Yadav MD, [facility] CPT-4: 58665 06/02/2018 81759 EST. PATIENT, LEVEL II Diagnosis: Zoster without complications[ICD10: B02.9] Celia Yadav MD, [facility] CPT-4: 04134 02/07/2018 ([id number]) 91641 EST. PATIENT, LEVEL III Diagnosis: Essential (primary) hypertension[ICD10: I10] Bijal Yadav MD, [facility] CPT-4: 39453 09/23/2017 ([id number]) 22622 EST. PATIENT, LEVEL IV Diagnosis: Essential (primary) hypertension[ICD10: I10] Diagnosis: Muscle weakness (generalized)[ICD10: M62.81] Diagnosis: Other insomnia[ICD10: G47.09] Bijal Yadav MD, [facility] CPT- 4: 50018 05/14/2017 ([id number]) 81559 EST. PATIENT, LEVEL III Diagnosis: Right lower quadrant pain[ICD10: R10.31] Bijal Yadav MD, [facility] CPT-4: 80376 08/08/2016 ([id number]) 65960 EST. PATIENT, LEVEL III Diagnosis: Right lower quadrant pain[ICD10: R10.31] Bijal Yadav MD, [facility] CPT-4: 54195 07/10/2016 ([id number]) 11659 EST. PATIENT, LEVEL III Diagnosis: Right lower quadrant pain[ICD10: R10.31] Diagnosis: Drug induced constipation[ICD10: K59.03] Celia Yadav MD, [facility] CPT-4: 34704 06/28/2016 ([id number]) 69368 EST. PATIENT, LEVEL IV Diagnosis: Essential (primary) hypertension[ICD10: I10] Diagnosis: Major depressive disorder, single episode, mild[ICD10: F32.0] Celia Yadav MD, [facility] CPT-4: 44899 06/14/2016 ([id number]) 87982 EST. PATIENT, LEVEL IV Diagnosis: Essential (primary) hypertension[ICD10: I10] Diagnosis: Varicose veins of bilateral lower extremities with pain[ICD10: I83.813] Diagnosis: Localized edema[ICD10: R60.0] Diagnosis: Pain in right shoulder[ICD10: M25.511] [facility] CPT-4: 57610 04/09/2016 ([id number]) 31148 EST. PATIENT, LEVEL III Diagnosis: Essential (primary) hypertension[ICD10: I10] Diagnosis: Varicose veins of bilateral lower extremities with pain[ICD10: I83.813] Diagnosis: Localized edema[ICD10: R60.0] [facility] CPT- 4: 47477 01/10/2016 ([id number]) Miscellaneous no charge Diagnosis: Essential (primary) hypertension[ICD10: I10] [facility] CPT-4: 51244 12/22/2015 ([id number]) OFFICE VISIT, NEW - LEVEL 4 Diagnosis: Essential (primary) hypertension[ICD10: I10] Diagnosis: Localized edema[ICD10: R60.0] Diagnosis: Varicose veins of bilateral lower extremities with pain[ICD10: I83.813] [facility] CPT-4: 39056 2015 Plan of Care Planned Activity Notes [...] considered contagious. 02/07/2018 [phone] [phone] [place] ([facility] min) Moderate 02/07/2018 Patient Education: Patient Medication Summary Completed 02/07/2018 [phone] [facility] [place] ([facility] min) Moderate 11/05/2017 Visit Plan: [...] units daily. 09/23/2017 Appointment: [facility] [phone] [facility] [place] (15 min) Moderate 09/23/2017 Patient Education: [...] daily. 05/14/2017 Appointment: [facility] [phone] [facility] [place] (15 min) Moderate 05/14/2017 Patient Education: [...] pain. 08/08/2016 Appointment: Bijal Yadav WPtel: [phone] [facility] (15 min) Moderate 08/08/2016 Patient Education: Patient [...] to specialist. 07/12/2016 Appointment: Bijal Yadav WPtel: [phone] [facility] (10 min) Simple 07/12/2016 Patient Education: Patient Medication Summary Completed 07/12/2016 Visit Plan: Abdominal pain - uncontrolled - rx for lidoderm patch - or use over the counter lidoderm patches - call if not improved - rx for cyclobenzaprine 07/10/2016 Appointment: Bijal Yadav WPtel: [phone] [facility] (15 min) Moderate 07/10/2016 Patient Education: Patient [...] increased mobility. 06/14/2016 Appointment: Celia Singleton WPtel: [phone] (30 min) Complex 06/14/2016 Patient Education: Patient [...] vein treatment. 04/09/2016 Appointment: Bijal Yadav WPtel: [facility] (15 min) Moderate 04/09/2016 Patient Education: Patient [...] [place]. 01/10/2016 Appointment: Bijal Yadav WPtel: [facility] [place] (15 min) Moderate 01/10/2016 Patient Education: [...]
--- OUTSIDE RECORDS SUMMARY | 2018-10-23 23:18 | XMS REPORT | CCD ---
Author Author [facility]ijal Yadav Organization [facility] Address [address] [place] [address] Phone Care Team Providers Care Adobe Developer Name Role Phone PP Unavailable CCM Unavailable Summary Purpose Interface Exchange Insurance Providers Payer name Policy type / Coverage type Covered republican ID Effective Begin Date Effective End Date [place] Medicare Part B [id number] 2015 Unknown [facility] Medicare Part B [id number] 2015 Unknown Family history Mother Diagnosis Age At Onset Hypertension Unknown Heart Attack Unknown Father Diagnosis Age At Onset Colon cancer Unknown Brother Diagnosis Age At Onset Cancer Unknown Social History Social History Element Codes Description Effective Dates Marital status Unknown 12/14/2015 Number of children Unknown 1 12/14/2015 Employment Unknown Retired 12/14/[address]: 360628502 Never smoker 12/14/[address]: 841183564 Never drinks alcohol 12/14/2015 Has the patient ever used illegal drugs? Unknown Has never used illegal drugs 12/14/2015 Allergies, Adverse Reactions, Alerts Allergies, Adverse Reactions, Alerts data not found Past Medical History Illness Codes Condition Status Onset Date Resolved Date Essential (primary) hypertension ICD-9: 401.1 ICD-10: I10 Active 06/13/2016 Unknown Muscle weakness (generalized) ICD-9: 728.87 ICD-10: [...] Problems Condition Codes Effective Dates Condition Status Essential (primary) hypertension ICD-9: 401.1 ICD-10: I10 06/13/2016 Active Muscle weakness (generalized) ICD-9: 728.87 ICD-10: [...] Fill Instructions metformin 500 mg tablet RxNorm: 954051 1 Tablet(s) PO daily 07/201707/13/2018 Active losartan 50 mg tablet RxNorm: 816124 1 Tablet(s) PO daily 201707/13/2018 Active bisoprolol fumarate 5 mg tablet RxNorm: 715160 1 Tablet(s) PO daily 07/19/2017 07/13/2018 Active cefdinir 300 mg capsule RxNorm: 063202 1 Capsule(s) PO BID 06/201707/27/2017 Active Phenergan-Codeine 6.25 mg-10 mg/5 mL syrup RxNorm: 226190 5-10 Milliliter(s) PO Q6 as needed 07/18/2017 07/23/2017 Active Phenergan-Codeine 6.25 mg-10 mg/5 mL syrup RxNorm: 350260 5-10 Milliliter(s) PO Q6 as needed 07/18/2017 07/17/2017 Inactive cefdinir 300 mg capsule RxNorm: 343825 1 Capsule(s) PO BID 06/201707/17/2017 Inactive Zithromax Z-Benjamin 250 mg tablet RxNorm: 114690 1 Tablet(s) PO UD 07/16/2017 No Stop Date Active z pack as directed ipratropium bromide 0.06 % nasal spray RxNorm: 7987708 1 [place] NASAL daily 04/08/2017 04/02/2018 Active ipratropium bromide 0.06 % nasal spray RxNorm: 1377704 1 [place] NASAL daily 04/05/2017 04/07/2017 Inactive metformin 500 mg tablet RxNorm: 447163 1 Tablet(s) PO daily 07/18/2017 Inactive potassium chloride ER 20 mEq tablet,extended release RxNorm: 302679 1 Tablet(s) PO daily as needed for leg cramps 10/03/2016 03/31/2017 Inactive potassium chloride 20 meq RxNorm: 1 PO daily as needed for leg cramps 10/03/2016 10/02/2016 Inactive metformin 500 mg tablet RxNorm: 441605 1 Tablet(s) PO daily 10/02/2016 Inactive losartan 50 mg tablet RxNorm: 487044 1 Tablet(s) PO daily 201607/18/2017 Inactive bisoprolol fumarate 5 mg tablet RxNorm: 294557 1 Tablet(s) PO daily 10/02/2016 07/18/2017 Inactive meloxicam 15 mg tablet RxNorm: 592806 1 Tablet(s) PO daily 03/201708/18/2017 Active Zithromax Z-Benjamin 250 mg tablet RxNorm: 194122 1 Tablet(s) PO UD 07/17/2016 08/16/2016 Inactive z pack as directed cyclobenzaprine 5 mg tablet RxNorm: 188917 1/2 - 1 Tablet(s) PO TID as needed muscle spasms 07/10/2016 08/08/2016 Inactive meloxicam 15 mg tablet RxNorm: 415111 1 Tablet(s) PO daily 08/23/2016 Inactive losartan 50 mg tablet RxNorm: 751624 1 Tablet(s) PO daily 201510/01/2016 Inactive losartan 50 mg tablet RxNorm: 977762 1 Tablet(s) PO daily 201501/09/2016 Inactive losartan 50 mg tablet RxNorm: 964177 1 Tablet(s) PO daily 201512/14/2015 Inactive Glucosamine-Chondroitin Complex oral RxNorm: oral No Start Date Active Low-Dose Aspirin 81 mg tablet RxNorm: 316879 1 Tablet(s) PO daily No Start Date Active Vitamin D3 1,000 unit tablet RxNorm: 253190 1 Tablet(s) PO daily No Start Date Active [place]-3 Fish Oil 300 mg-1,000 mg capsule RxNorm: 1 Capsule(s) PO TID No Start Date Active Vitamin C 500 mg tablet RxNorm: 750788 1 Tablet(s) PO daily No Start Date Active Vitamin B-12 1,000 mcg tablet RxNorm: 596763 1 Tablet(s) PO daily No Start Date Active Slow Fe oral RxNorm: 81512 oral No Start Date Active Aleve 220 mg tablet RxNorm: 784554 1 Tablet(s) PO daily No Start Date 05/13/2017 Inactive meloxicam 15 mg tablet RxNorm: 186424 1 Tablet(s) PO daily No Start Date 12/13/2015 Inactive Zithromax Z-Benjamin 250 mg tablet RxNorm: 475636 1 Tablet(s) PO UD No Start Date 07/16/2016 Inactive z pack as directed gabapentin 100 mg capsule RxNorm: 769161 1 Capsule(s) PO TID No Start Date 05/13/2017 Inactive ipratropium bromide 0.06 % nasal spray RxNorm: 4734757 [place] NASAL No Start Date 04/04/2017 Inactive bisoprolol fumarate 5 mg tablet RxNorm: 295449 1 Tablet(s) PO daily No Start Date 10/01/2016 Inactive oxycodone-acetaminophen 5 mg-325 mg tablet RxNorm: 0051990 2 Tablet(s) PO as needed No Start Date 05/13/2017 Inactive Medication Administered No Medication Administered data Immunizations No Immunization data Assessments Condition Codes Effective Dates Other insomnia ICD-10: G47.09 ICD-9: 327.09 05/14/2017 Essential (primary) hypertension ICD-10: I10 ICD-9: 401.1 05/14/2017 Muscle weakness (generalized) ICD-10: M62.81 ICD-9: [...] Visit Reason For Visit Effective Dates Notes muscle weakness 05/14/2017 Hospital Follow Up 08/08/2016 abdominal pain 07/12/2016 abdominal pain 07/10/2016 abdominal pain 06/28/2016 depression 06/14/2016 back pain 04/09/2016 back pain 01/10/2016 pain, generalized 12/14/2015 Results Observation Observation Code Item Item Code Result Date Magnesium Ord90 Mag 1.8 mg/dL 05/15/2017 Comp Metabolic Ecd205 NA 137 mEq/L 05/15/2017 Comp Metabolic Glb365 K 4.5 mEq/L 05/15/2017 Comp Metabolic Vxi464 CL 102 mEq/L 05/15/2017 Comp Metabolic Agg679 CO2 28.0 mEq/L 05/15/2017 Comp Metabolic Xqx871 ANION GAP 12 05/15/2017 Comp Metabolic Viv717 GLUCOSE 103 mg/dL 05/15/2017 Comp Metabolic Pyv928 Creat 0.9 mg/dL 05/15/2017 Comp Metabolic Foy607 eGFR 62 ml/min/1.73m2 05/15/2017 Comp Metabolic Fur088 BUN 25 mg/dL 05/15/2017 Comp Metabolic Ysh727 B/C Ratio 26.9 Ratio 05/15/2017 Comp Metabolic Ghh507 CALCIUM 9.7 mg/dL 05/15/2017 Comp Metabolic Dyw278 ALK PHOS 90 U/L 05/15/2017 Comp Metabolic Vhc531 AST(SGOT) 15 U/L 05/15/2017 Comp Metabolic Xiy761 ALT(SGPT) 10 U/L 05/15/2017 Comp Metabolic Khw778 BILI T 0.4 mg/dL 05/15/2017 Comp Metabolic Suy384 ALBUMIN 3.7 g/dL 05/15/2017 Comp Metabolic Fyf245 TPRO 5.9 g/dL 05/15/2017 Comp Metabolic Vfx190 GLOB 2.2 g/dL 05/15/2017 Comp Metabolic Zqs242 A/G Ratio 1.7 Ratio 05/15/2017 Comp Metabolic Vbi510 Osmo 278 mOsmo 05/15/2017 Cbc With Differential [...] 27.2 pg 05/15/2017 Cbc With Differential Ord2 [place]% 12.2 % 05/15/2017 Cbc With Differential Ord2 [...] 1.74 K/ul 05/15/2017 Cbc With Differential Ord2 [place] ABS# 0.8 K/ul 05/15/2017 Cbc With Differential [...] 67.5 % 06/13/2016 Cbc With Differential Ord2 Lymph% 18.1 % 06/13/2016 Cbc With Differential Ord2 MCV 84.3 fl 06/13/2016 Cbc With Differential Ord2 MCH 27.6 pg 06/13/2016 Cbc With Differential Ord2 [place]% 8.3 % 06/13/2016 Cbc With Differential Ord2 [...] 1.48 K/ul 06/13/2016 Cbc With Differential Ord2 [place] ABS# 0.7 K/ul 06/13/2016 Cbc With Differential Ord2 Eos ABS# 0.5 K/ul 06/13/2016 Cbc With Differential Ord2 Baso ABS# 0.0 K/ul 06/13/2016 Tsh Ord6 hTSH II 1.80 uIU/mL 06/13/2016 Comp Metabolic Qnn094 NA 136 mEq/L 06/13/2016 Comp Metabolic Crn068 K 4.5 mEq/L 06/13/2016 Comp Metabolic Qhr068 CL 100 mEq/L 06/13/2016 Comp Metabolic Vvv073 CO2 29.0 mEq/L 06/13/2016 Comp Metabolic Hrh262 ANION GAP 12 06/13/2016 Comp Metabolic Hev038 GLUCOSE 106 mg/dL 06/13/2016 Comp Metabolic Qnv858 Creat 0.8 mg/dL 06/13/2016 Comp Metabolic Ftu726 eGFR 77 ml/min/1.73m2 06/13/2016 Comp Metabolic Fge936 BUN 19 mg/dL 06/13/2016 Comp Metabolic Hty242 B/C Ratio 24.4 Ratio 06/13/2016 Comp Metabolic Mqv042 CALCIUM 10.1 mg/dL 06/13/2016 Comp Metabolic Koa346 ALK PHOS 102 U/L 06/13/2016 Comp Metabolic Kaw381 AST(SGOT) 18 U/L 06/13/2016 Comp Metabolic Hml513 ALT(SGPT) 15 U/L 06/13/2016 Comp Metabolic Pzs200 BILI T 0.6 mg/dL 06/13/2016 Comp Metabolic Rue484 ALBUMIN 4.1 g/dL 06/13/2016 Comp Metabolic Jqk631 TPRO 6.7 g/dL 06/13/2016 Comp Metabolic Zzd185 GLOB 2.6 g/dL 06/13/2016 Comp Metabolic Lmq627 A/G Ratio 1.6 Ratio 06/13/2016 Comp Metabolic Gde398 Osmo 275 mOsmo 06/13/2016 Review of Systems System Result Effective Dates Constitutional No recent illness 2016 Constitutional No [...] Result Effective Dates Notes Full Exam - General 1995 Constitutional general appearance Development: well developed 05/14/2017 [...] veins 12/14/2015 None Procedures Procedure Codes Date INJ TRIGGER POINT 06/18 MUSCL CPT-4: 16660 07/12/2016 TRIAMCINOLONE ACET INJ NOS CPT-4: J3301 07/12/2016 Vital Signs Date Vital 05/14/2017 Blood Pressure 1: 146/82 Code : 8480-6 BMI: 28.8 Code : 95810-3 Heart Rate 1 : 81 bpm Height: 5'3" SpO2: 100% Weight: 162 lbs 8 oz 08/08/2016 Blood Pressure 1: 126/76 Code : 8480-6 Heart Rate 1: 72 bpm Height: SpO2: 97% Weight: 07/12/2016 Blood Pressure 1: 138/76 Code : 8480-6 BMI: 30.1 Code : 49267-6 Heart Rate 1 : 81 bpm Height: 5'3" SpO2: 97% Weight: 170 lbs 07/10/2016 Blood Pressure 1: 132/80 Code : 8480-6 BMI: 30.1 Code : 08911-7 Heart Rate 1 : 76 bpm Height: 5'3" SpO2: 97% Weight: 170 lbs 06/28/2016 Blood Pressure 1: 144/82 Code : 8480-6 Heart Rate 1: 71 bpm Height: 5'3" SpO2: 98% Weight: 06/14/2016 Blood Pressure 1: 128/86 Code : 8480-6 Heart Rate 1: 86 bpm Height: SpO2: 96% Weight: 04/09/2016 Blood Pressure 1: 120/76 Code : 8480-6 BMI: 31.2 Code : 91155-4 Heart Rate 1 : 71 bpm Height: 5'3" SpO2: 98% Weight: 176 lbs 01/10/2016 Blood Pressure 1: 138/72 Code : 8480-6 BMI: 31.5 Code : 75740-9 Heart Rate 1 : 79 bpm Height: 5'3" SpO2: 99% Weight: 178 lbs 12/22/2015 Blood Pressure 1: 146/82 Code : 8480-6 Heart Rate 1: 73 bpm SpO2: 97% 12/14/2015 Blood Pressure 1: 178/88 Code : 8480-6 BMI: 31.9 Code : 80065-5 Heart Rate 1 : 78 bpm Height: 5'3" Respiratory Rate: 20 bpm Weight: 180 lbs Functional Status No Functional Status data History of Present Illness Symptom Name Status Result Effective Date Notes muscle weakness Location diffusely 05/14/2017 None muscle [...] data Encounters Encounter Performer Location Codes Date ) 58153 EST. PATIENT, LEVEL IV Diagnosis: Essential (primary) hypertension[ICD10: I10] Diagnosis: Muscle weakness (generalized)[ICD10: M62.81] Diagnosis: Other insomnia[ICD10: G47.09] Bijal Yadav MD, [facility] CPT- 4: 48735 05/14/2017 ([id number]) 54239 EST. PATIENT, LEVEL III Diagnosis: Right lower quadrant pain[ICD10: R10.31] Bijal Yadav MD, [facility] CPT-4: 73309 08/08/2016 ([id number]) 20283 EST. PATIENT, LEVEL III Diagnosis: Right lower quadrant pain[ICD10: R10.31] Bijal Yadav MD, [facility] CPT-4: 22942 07/10/2016 ([id number]) 88710 EST. PATIENT, LEVEL III Diagnosis: Right lower quadrant pain[ICD10: R10.31] Diagnosis: Drug induced constipation[ICD10: K59.03] Celia Yadav MD, [facility] CPT-4: 59987 06/28/2016 ([id number]) 89384 EST. PATIENT, LEVEL IV Diagnosis: Essential (primary) hypertension[ICD10: I10] Diagnosis: Major depressive disorder, single episode, mild[ICD10: F32.0] Celia Yadav MD, [facility] CPT-4: 40354 06/14/2016 ([id number]) 95995 EST. PATIENT, LEVEL IV Diagnosis: Essential (primary) hypertension[ICD10: I10] Diagnosis: Varicose veins of bilateral lower extremities with pain[ICD10: I83.813] Diagnosis: Localized edema[ICD10: R60.0] Diagnosis: Pain in right shoulder[ICD10: M25.511] Bijal Yadav MD, [facility] CPT-4: 51721 04/09/2016 ([id number]) 14885 EST. PATIENT, LEVEL III Diagnosis: Essential (primary) hypertension[ICD10: I10] Diagnosis: Varicose veins of bilateral lower extremities with pain[ICD10: I83.813] Diagnosis: Localized edema[ICD10: R60.0] [facility] CPT- 4: 62624 01/10/2016 ([id number]) Miscellaneous no charge Diagnosis: Essential (primary) hypertension[ICD10: I10] [facility] CPT-4: 39611 12/22/2015 ([id number]) OFFICE VISIT, NEW - LEVEL 4 Diagnosis: Essential (primary) hypertension[ICD10: I10] Diagnosis: Localized edema[ICD10: R60.0] Diagnosis: Varicose veins of bilateral lower extremities with pain[ICD10: I83.813] Bijal Yadav MD, [facility] CPT-4: 02611 2015 Plan of Care Planned Activity Notes Codes Status Date Visit Plan: Hypertension - well controlled - [...] units daily. 05/14/2017 Appointment: [id number] ([facility] min) Moderate 05/14/2017 Patient Education: Patient [...] severe pain. 08/08/2016 Appointment: [id number] [place] (15 min) Moderate 08/08/2016 Patient Education: [...] to specialist. 07/12/2016 App[facility] [phone] [id number] (10 min) Simple 07/12/2016 Patient Education: Patient Medication Summary Completed 07/12/2016 Visit Plan: Abdominal pain - uncontrolled - rx for lidoderm patch - or use over the counter lidoderm patches - call if not improved - rx for cyclobenzaprine 07/10/2016 Appointment: [facility] [phone] [facility] [place] (15 min) Moderate 07/10/2016 Patient Education: [...] increased mobility. 06/14/2016 Appointment: Celia Singleton WPtel: [phone] (30 min) Complex 06/14/2016 Patient Education: Patient [...] vein treatment. 04/09/2016 Appointment: [facility] [phone] [facility] (15 min) Moderate 04/09/2016 Patient Education: Patient [...] Dr. Denney. 01/10/2016 Appointment: [facility] [phone] [facility] (15 min) Moderate 01/10/2016 Patient Education: Patient [...] improved, need to refer to specialist. . Constipation - uncontrolled - I have [...]
--- OUTSIDE RECORDS SUMMARY | 2018-10-23 23:20 | XMS REPORT | CCD ---
Author Author [facility] Organization [facility] Address [address] [place] [address] Phone Care Team Providers Care Technical Service Engineer Name Role Phone PP Unavailable CCM Unavailable Summary Purpose Interface Exchange Insurance Providers Payer name Policy type / Coverage type Covered democrat ID Effective Begin Date Effective End Date [place] Medicare Part B [id number] 2015 Unknown [facility] Medicare Part B [id number] 2015 Unknown Family history Mother Diagnosis Age At Onset Hypertension Unknown Heart Attack Unknown Father Diagnosis Age At Onset Colon cancer Unknown Brother Diagnosis Age At Onset Cancer Unknown Social History Social History Element Codes Description Effective Dates Marital status Unknown 12/14/2015 Number of children Unknown 1 12/14/2015 Employment Unknown Retired 12/14/[address]: 659874062 Never smoker 12/14/[address]: 637110101 Never drinks alcohol 12/14/2015 Has the patient [...] Instructions Zithromax Z-Benjamin 250 mg tablet RxNorm: 154962 1 Tablet(s) PO UD 07/16/2017 No Stop Date Active z pack as directed ipratropium bromide 0.06 % nasal spray RxNorm: 4335907 1 [place] NASAL daily 04/08/2017 04/02/2018 Active ipratropium bromide 0.06 % nasal spray RxNorm: 5789678 1 [place] NASAL daily 04/05/2017 04/07/2017 Inactive metformin 500 mg tablet RxNorm: 784765 1 Tablet(s) PO daily 09/27/2017 Active potassium chloride ER 20 mEq tablet,extended release RxNorm: 126037 1 Tablet(s) PO daily as needed for leg cramps 10/03/2016 03/31/2017 Inactive potassium chloride 20 meq RxNorm: 1 PO daily as needed for leg cramps 10/03/2016 10/02/2016 Inactive metformin 500 mg tablet RxNorm: 212108 1 Tablet(s) PO daily 10/02/2016 Inactive losartan 50 mg tablet RxNorm: 145904 1 Tablet(s) PO daily 201609/26/2017 Active bisoprolol fumarate 5 mg tablet RxNorm: 876319 1 Tablet(s) PO daily 10/02/2016 09/26/2017 Active meloxicam 15 mg tablet RxNorm: 134875 1 Tablet(s) PO daily 03/201708/18/2017 Active Zithromax Z-Benjamin 250 mg tablet RxNorm: 574695 1 Tablet(s) PO UD 07/17/2016 08/16/2016 Inactive z pack as directed cyclobenzaprine 5 mg tablet RxNorm: 136466 1/2 - 1 Tablet(s) PO TID as needed muscle spasms 07/10/2016 08/08/2016 Inactive meloxicam 15 mg tablet RxNorm: 843190 1 Tablet(s) PO daily 08/23/2016 Inactive losartan 50 mg tablet RxNorm: 925111 1 Tablet(s) PO daily 201510/01/2016 Inactive losartan 50 mg tablet RxNorm: 716372 1 Tablet(s) PO daily 201501/09/2016 Inactive losartan 50 mg tablet RxNorm: 916487 1 Tablet(s) PO daily 201512/14/2015 Inactive Glucosamine-Chondroitin Complex oral RxNorm: oral No Start Date Active Low-Dose Aspirin 81 mg tablet RxNorm: 004895 1 Tablet(s) PO daily No Start Date Active Vitamin D3 1,000 unit tablet RxNorm: 399971 1 Tablet(s) PO daily No Start Date Active Omer-3 Fish Oil 300 mg-1,000 mg capsule RxNorm: 1 Capsule(s) PO TID No Start Date Active Vitamin C 500 mg tablet RxNorm: 710438 1 Tablet(s) PO daily No Start Date Active Vitamin B-12 1,000 mcg tablet RxNorm: 057781 1 Tablet(s) PO daily No Start Date Active Slow Fe oral RxNorm: 20256 oral No Start Date Active Aleve 220 mg tablet RxNorm: 101177 1 Tablet(s) PO daily No Start Date 05/13/2017 Inactive meloxicam 15 mg tablet RxNorm: 031943 1 Tablet(s) PO daily No Start Date 12/13/2015 Inactive Zithromax Z-Benjamin 250 mg tablet RxNorm: 532987 1 Tablet(s) PO UD No Start Date 07/16/2016 Inactive z pack as directed gabapentin 100 mg capsule RxNorm: 084544 1 Capsule(s) PO TID No Start Date 05/13/2017 Inactive ipratropium bromide 0.06 % nasal spray RxNorm: 1989243 [place] NASAL No Start Date 04/04/2017 Inactive bisoprolol fumarate 5 mg tablet RxNorm: 211892 1 Tablet(s) PO daily No Start Date 10/01/2016 Inactive oxycodone-acetaminophen 5 mg-325 mg tablet RxNorm: 8035763 2 Tablet(s) PO as needed No Start [...] Ord90 Mag 1.8 mg/dL 05/15/2017 Comp Metabolic Ghw834 NA 137 mEq/L 05/15/2017 Comp Metabolic Thc538 K 4.5 mEq/L 05/15/2017 Comp Metabolic Wks443 CL 102 mEq/L 05/15/2017 Comp Metabolic Xhk986 CO2 28.0 mEq/L 05/15/2017 Comp Metabolic Cwi124 ANION GAP 12 05/15/2017 Comp Metabolic Bvp691 GLUCOSE 103 mg/dL 05/15/2017 Comp Metabolic Omw602 Creat 0.9 mg/dL 05/15/2017 Comp Metabolic Zvs709 eGFR 62 ml/min/1.73m2 05/15/2017 Comp Metabolic Cyu364 BUN 25 mg/dL 05/15/2017 Comp Metabolic Tlq336 B/C Ratio 26.9 Ratio 05/15/2017 Comp Metabolic Jwb946 CALCIUM 9.7 mg/dL 05/15/2017 Comp Metabolic Tsg541 ALK PHOS 90 U/L 05/15/2017 Comp Metabolic Pby702 AST(SGOT) 15 U/L 05/15/2017 Comp Metabolic Iqc437 ALT(SGPT) 10 U/L 05/15/2017 Comp Metabolic Bqp345 BILI T 0.4 mg/dL 05/15/2017 Comp Metabolic Dcv348 ALBUMIN 3.7 g/dL 05/15/2017 Comp Metabolic Vhp796 TPRO 5.9 g/dL 05/15/2017 Comp Metabolic Xnt758 GLOB 2.2 g/dL 05/15/2017 Comp Metabolic Bkg551 A/G Ratio 1.7 Ratio 05/15/2017 Comp Metabolic Vkw598 Osmo 278 mOsmo 05/15/2017 Lipid Ord30 CHOL 218 mg/dL 05/15/2017 [...] 27.5 % 05/15/2017 Cbc With Differential Ord2 [place]% 12.2 % 05/15/2017 Cbc With Differential Ord2 MCH 27.2 pg 05/15/2017 Cbc With Differential Ord2 MCHC 31.8 pg 05/15/2017 Cbc With Differential Ord2 Eos% 8.7 % 05/15/2017 Cbc With Differential Ord2 Baso% 0.3 % 05/15/2017 Cbc With Differential Ord2 PLT 353 K/ul 05/15/2017 Cbc With Differential Ord2 RDW 14.4 % 05/15/2017 Cbc With Differential Ord2 Neut ABS# 3.24 K/ul 05/15/2017 Cbc With Differential Ord2 Lymph ABS# 1.74 K/ul 05/15/2017 Cbc With Differential Ord2 [place] ABS# 0.8 K/ul 05/15/2017 Cbc With Differential Ord2 Eos ABS# 0.6 K/ul 05/15/2017 Cbc With Differential Ord2 Baso ABS# 0.0 K/ul 05/15/2017 Comp Metabolic Shy397 NA 136 mEq/L 06/13/2016 Comp Metabolic Gyv726 K 4.5 mEq/L 06/13/2016 Comp Metabolic Pvj324 CL 100 mEq/L 06/13/2016 Comp Metabolic Rig651 CO2 29.0 mEq/L 06/13/2016 Comp Metabolic Xqi836 ANION GAP 12 06/13/2016 Comp Metabolic Now920 GLUCOSE 106 mg/dL 06/13/2016 Comp Metabolic Kej646 Creat 0.8 mg/dL 06/13/2016 Comp Metabolic Sbq413 eGFR 77 ml/min/1.73m2 06/13/2016 Comp Metabolic Bdk253 BUN 19 mg/dL 06/13/2016 Comp Metabolic Jus858 B/C Ratio 24.4 Ratio 06/13/2016 Comp Metabolic Bpm807 CALCIUM 10.1 mg/dL 06/13/2016 Comp Metabolic Bsf398 ALK PHOS 102 U/L 06/13/2016 Comp Metabolic Lbu310 AST(SGOT) 18 U/L 06/13/2016 Comp Metabolic Liw103 ALT(SGPT) 15 U/L 06/13/2016 Comp Metabolic Ono862 BILI T 0.6 mg/dL 06/13/2016 Comp Metabolic Eje736 ALBUMIN 4.1 g/dL 06/13/2016 Comp Metabolic Qok530 TPRO 6.7 g/dL 06/13/2016 Comp Metabolic Usj323 GLOB 2.6 g/dL 06/13/2016 Comp Metabolic Due058 A/G Ratio 1.6 Ratio 06/13/2016 Comp Metabolic Amu169 Osmo 275 mOsmo 06/13/2016 Cbc With Differential Ord2 WBC 8.19 K/ul 06/13/2016 Cbc With Differential Ord2 RBC 4.89 M/ul 06/13/2016 Cbc With Differential Ord2 HGB 13.5 g/dl 06/13/2016 Cbc With Differential Ord2 Neut% 67.5 % 06/13/2016 Cbc With Differential Ord2 HCT 41.2 % 06/13/2016 Cbc With Differential Ord2 MCV 84.3 fl 06/13/2016 Cbc With Differential Ord2 Lymph% 18.1 % 06/13/2016 Cbc With Differential Ord2 [place]% 8.3 % 06/13/2016 Cbc With Differential Ord2 MCH 27.6 pg 06/13/2016 Cbc With Differential Ord2 Eos% [...] 1.48 K/ul 06/13/2016 Cbc With Differential Ord2 [place] ABS# 0.7 K/ul 06/13/2016 Cbc With Differential Ord2 Eos ABS# 0.5 K/ul 06/13/2016 Cbc With Differential Ord2 Baso ABS# 0.0 K/ul 06/13/2016 Tsh Ord6 hTSH II 1.80 uIU/mL 06/13/2016 Lipid Ord30 CHOL 231 mg/dL 06/13/2016 Lipid Ord30 HDL 65.0 mg/dl 06/13/2016 Lipid Ord30 TRIG 108 mg/dL 06/13/2016 Lipid Ord30 LDL 144 mg/dL 06/13/2016 Lipid Ord30 C/HDL 3.6 Ratio 06/13/2016 Review of Systems System Result Effective [...] Effective Dates Notes Full Exam - General 1994 Constitutional general [...] Date INJ TRIGGER POINT 06/18 MUSCL CPT-4: 83736 07/12/2016 TRIAMCINOLONE ACET INJ NOS CPT-4: J3301 07/12/2016 Vital Signs Date Vital 05/14/2017 Blood Pressure 1: 146/82 Code : 8480-6 BMI: 28.8 Code : 91307-0 Heart Rate 1 : 81 bpm Height: 5'3" SpO2: 100% Weight: 162 lbs 8 oz 08/08/2016 Blood Pressure 1: 126/76 Code : 8480-6 Heart Rate 1: 72 bpm Height: SpO2: 97% Weight: 07/12/2016 Blood Pressure 1: 138/76 Code : 8480-6 BMI: 30.1 Code : 73868-6 Heart Rate 1 : 81 bpm Height: 5'3" SpO2: 97% Weight: 170 lbs 07/10/2016 Blood Pressure 1: 132/80 Code : 8480-6 BMI: 30.1 Code : 66219-0 Heart Rate 1 : 76 bpm Height: 5'3" SpO2: 97% Weight: 170 lbs 06/28/2016 Blood Pressure 1: 144/82 Code : 8480-6 Heart Rate 1: 71 bpm Height: 5'3" SpO2: 98% Weight: 06/14/2016 Blood Pressure 1: 128/86 Code : 8480-6 Heart Rate 1: 86 bpm Height: SpO2: 96% Weight: 04/09/2016 Blood Pressure 1: 120/76 Code : 8480-6 BMI: 31.2 Code : 26669-3 Heart Rate 1 : 71 bpm Height: 5'3" SpO2: 98% Weight: 176 lbs 01/10/2016 Blood Pressure 1: 138/72 Code : 8480-6 BMI: 31.5 Code : 87992-9 Heart Rate 1 : 79 bpm Height: 5'3" SpO2: 99% Weight: 178 lbs 12/22/2015 Blood Pressure 1: 146/82 Code : 8480-6 Heart Rate 1: 73 bpm SpO2: 97% 12/14/2015 Blood Pressure 1: 178/88 Code : 8480-6 BMI: 31.9 Code : 95823-6 Heart Rate 1 : 78 bpm Height: [...] data Encounters Encounter Performer Location Codes Date ([id number]) [id number] EST. PATIENT, LEVEL IV Diagnosis: Essential (primary) hypertension[ICD10: I10] Diagnosis: Muscle weakness (generalized)[ICD10: M62.81] Diagnosis: Other insomnia[ICD10: G47.09] [facility] CPT- 4: 83242 05/14/2017 ([id number]) 01213 EST. PATIENT, LEVEL III Diagnosis: Right lower quadrant pain[ICD10: R10.31] [facility] CPT-4: 55040 08/08/2016 ([id number]) 07042 EST. PATIENT, LEVEL III Diagnosis: Right lower quadrant pain[ICD10: R10.31] [facility], [facility] CPT-4: 80405 07/10/2016 ([id number]) 68483 EST. PATIENT, LEVEL III Diagnosis: Right lower quadrant pain[ICD10: R10.31] Diagnosis: Drug induced constipation[ICD10: K59.03] Celia Yadav MD, [facility] CPT-4: 20127 06/28/2016 ([id number]) 70849 EST. PATIENT, LEVEL IV Diagnosis: Essential (primary) hypertension[ICD10: I10] Diagnosis: Major depressive disorder, single episode, mild[ICD10: F32.0] Celia Yadav MD, [facility] CPT-4: 71928 06/14/2016 ([id number]) 55858 EST. PATIENT, LEVEL IV Diagnosis: Essential (primary) hypertension[ICD10: I10] Diagnosis: Varicose veins of bilateral lower extremities with pain[ICD10: I83.813] Diagnosis: Localized edema[ICD10: R60.0] Diagnosis: Pain in right shoulder[ICD10: M25.511] [facility] MD, [facility] CPT-4: 45534 04/09/2016 ([id number]) 75449 EST. PATIENT, LEVEL III Diagnosis: Essential (primary) hypertension[ICD10: I10] Diagnosis: Varicose veins of bilateral lower extremities with pain[ICD10: I83.813] Diagnosis: Localized edema[ICD10: R60.0] [facility], [facility] CPT- 4: 15598 01/10/2016 ([id number]) Miscellaneous no charge Diagnosis: Essential (primary) hypertension[ICD10: I10] [facility], [facility] CPT-4: 25997 12/22/2015 ([id number]) OFFICE VISIT, NEW - LEVEL 4 Diagnosis: Essential (primary) hypertension[ICD10: I10] Diagnosis: Localized edema[ICD10: R60.0] Diagnosis: Varicose veins of bilateral lower extremities with pain[ICD10: I83.813] [facility], [facility] CPT-4: 62831 2015 Plan of Care Planned Activity Notes [...] daily. 05/14/2017 Appointment: [facility]al Yadav WPtel: [phone] [facility] [place] (15 min) Moderate 05/14/2017 Patient Education: [...] severe pain. 08/08/2016 Appointment: Bijal Yadav WPtel: [facility] [place] (15 min) Moderate 08/08/2016 Patient Education: [...] to specialist. 07/12/2016 Appointment: Bijal Yadav WPtel: [facility] [place] (10 min) Simple 07/12/2016 Patient Education: Patient Medication Summary Completed 07/12/2016 Visit Plan: Abdominal pain - uncontrolled - rx for lidoderm patch - or use over the counter lidoderm patches - call if not improved - rx for cyclobenzaprine 07/10/2016 Appointment: Bijal Yadav WPtel: [facility] [place] (15 min) Moderate 07/10/2016 Patient Education: [...] increased mobility. 06/14/2016 Appointment: Celia Singleton WPtel: [facility]7 [phone] (30 min) Complex 06/14/2016 Patient Education: Patient [...] vein treatment. 04/09/2016 Appointment: Bijal Yadav WPtel: [phone] [facility] (15 min) Moderate 04/09/2016 Patient Education: Patient [...] Dr. Denney. 01/10/2016 Appointment: [facility]ijal Yadav WPtel[facility] (15 min) Moderate 01/10/2016 Patient Education: Patient [...] 50mg tid - referral back up to [facility] - I suspect hernia - [...]
--- OUTSIDE RECORDS SUMMARY | 2018-10-23 23:21 | XMS REPORT | Continuity of Care Document ---
Author Organization Unknown Address Unknown Allergies Active Description Code Type Severity Reaction Onset Reported/Identified Relationship to Patient Clinical Status Yes No Known Drug Allergies [id number] Drug Allergy Unknown N/A 07/26/2016 Medications There is no data. Problems Date Dx Coded Attending Type Code Diagnosis Diagnosed By STEW HERNÁNDEZ, KAYLENE Tejada Ot M43.06 SPONDYLOLYSIS, LUMBAR REGION NOEMY MEZA DO Ot Z47.1 AFTERCARE FOLLOWING JOINT REPLACEMENT FATIMA NOEMY MEZA DO Ot Z96.652 PRESENCE OF LEFT ARTIFICIAL KNEE JOINT 05/16/1305 NOEMY MEZA DO Ot Z47.89 ENCOUNTER FOR OTHER ORTHOPEDIC AFTERCARE 04/19/2014 FLORENCIO HERNÁNDEZ, MARY Woods Ot 250.00 DIAB BELGICA WO COMPL, TYPE II OR UNSPEC TY 04/19/2014 FLORENCIO HERNÁNDEZ, MARY Woods Ot 562.10 DIVERTICULOSIS COLON (W/O MENT OF HEMORR 04/19/2014 FLORENCIO HERNÁNDEZ, MARY Woods Ot V12.72 PERSONAL HISTORY OF COLONIC POLYPS 08/04/2015 Ot 722.52 08/04/2015 Ot 724.02 08/04/2015 Ot V76.12 08/04/2015 ADORE MELTON DO S Ot 782.3 08/04/2015 ADORE MELTON DO S Ot 785.2 08/04/2015 FLORENCIO HERNÁNDEZ, MARY Woods Ot V72.84 08/04/2015 Ot 722.52 08/04/2015 Ot 724.02 08/04/2015 Ot V76.12 08/04/2015 ADORE MELTON DO S Ot 782.3 08/04/2015 ADORE MELTON DO S Ot 785.2 08/04/2015 FLORENCIO HERNÁNDEZ, MARY Woods Ot V72.84 08/19/2015 SONALI HERNÁNDEZ, ANDRY Nagy Ot R25.2 CRAMP AND SPASM 08/19/2015 Ot 722.52 08/19/2015 Ot 724.02 08/19/2015 Ot V76.12 08/19/2015 ORENDER DO, ADORE S Ot 782.3 08/19/2015 ORENDER DO, ADORE S Ot 785.2 08/19/2015 FLORENCIO HERNÁNDEZ, MARY Woods Ot V72.84 08/19/2015 ORENDER DO, ADORE S Ot M25.572 08/22/2015 ORENDER DO, ADORE S Ot M25.572 08/25/2015 ORENDER DO, ADORE S Ot M25.572 12/07/2015 Ot V76.12 OTH SCREEN MAMMO-MALIGN NEOPLASM OF BLAIR 12/07/2015 ORENDER DO, ADORE S Ot 782.3 EDEMA 12/07/2015 ORENDER DO, ADORE S Ot 785.2 CARDIAC MURMURS NEC 12/07/2015 FLORENCIO HERNÁNDEZ, MARY Woods Ot V72.84 EXAM PRE-OPERATIVE NOS 12/07/2015 ORENDER DO, ADORE S Ot M25.572 PAIN IN LEFT ANKLE AND JOINTS OF LEFT FO 12/07/2015 PEPE STERN ACCOUNT DEVELOPER Ot R60.0 LOCALIZED EDEMA 12/08/2015 PEPE STERN ACCOUNT DEVELOPER Ot R60.0 LOCALIZED EDEMA 12/08/2015 PEPE STERN ACCOUNT DEVELOPER Ot M25.511 PAIN IN RIGHT SHOULDER 12/08/2015 PEPE STERN ACCOUNT DEVELOPER Ot M79.662 PAIN IN LEFT LOWER LEG 12/08/2015 PEPE STERN ACCOUNT DEVELOPER Ot R60.0 LOCALIZED EDEMA 12/30/2015 Ot V76.12 OTH SCREEN MAMMO-MALIGN NEOPLASM OF BLAIR 12/30/2015 ORENDER DO, ADORE S Ot 782.3 EDEMA 12/30/2015 ORENDER DO, ADORE S Ot 785.2 CARDIAC MURMURS NEC 12/30/2015 FLORENCIO HERNÁNDEZ, MARY Woods Ot V72.84 EXAM PRE-OPERATIVE NOS 12/30/2015 ORENDER DO, ADORE S Ot M25.572 PAIN IN LEFT ANKLE AND JOINTS OF LEFT FO 12/30/2015 PEPE STERN ACCOUNT DEVELOPER Ot M25.511 PAIN IN RIGHT SHOULDER 12/30/2015 JARRED PEPE Frederick ACCOUNT DEVELOPER Ot M79.662 PAIN IN LEFT LOWER LEG 12/30/2015 PEPE STERN APRN Ot R60.0 LOCALIZED EDEMA 12/30/2015 JARREDPEPE ACCOUNT DEVELOPER Ot M25.511 PAIN IN RIGHT SHOULDER 12/30/2015 PEPE STERN ACCOUNT DEVELOPER Ot M79.662 PAIN IN LEFT LOWER LEG 12/30/2015 PEPE STERN APRN Ot R60.0 LOCALIZED EDEMA 01/02/2016 KAYLENE MATHIAS MD Ot M54.5 LOW BACK PAIN 01/02/2016 KAYLENE MATHIAS MD, Ot M54.5 LOW BACK PAIN 01/17/2016 PEPE STERN APRN Ot M25.511 PAIN IN RIGHT SHOULDER 01/17/2016 PEPE STERN APRN Ot M79.662 PAIN IN LEFT LOWER LEG 01/17/2016 PEPE STERN APRN Ot R60.0 LOCALIZED EDEMA 02/03/2016 KAYLENE MATHIAS MD Ot M54.5 LOW BACK PAIN 02/10/2016 Ot V76.12 OTH SCREEN MAMMO-MALIGN NEOPLASM OF BLAIR 02/10/2016 ORENDER DO, ADORE S Ot 782.3 EDEMA 02/10/2016 LINH COX ADORE S Ot 785.2 CARDIAC MURMURS NEC 02/10/2016 FLORENCIO HERNÁNDEZ, MARY Woods Ot V72.84 EXAM PRE-OPERATIVE NOS 02/10/2016 JEANE MELTON DOQUELINE S Ot M25.572 PAIN IN LEFT ANKLE AND JOINTS OF LEFT FO 02/10/2016 PEPE STERN APRN Ot M25.511 PAIN IN RIGHT SHOULDER 02/10/2016 PEPE STERN APRN Ot M79.662 PAIN IN LEFT LOWER LEG 02/10/2016 PEPE STERN APRN Ot R60.0 LOCALIZED EDEMA 02/10/2016 KAYLENE MATHIAS MD Ot M54.5 LOW BACK PAIN 02/13/2016 KAYLENE MATHIAS MD Ot M54.5 LOW BACK PAIN 02/16/2016 Ot V76.12 OTH SCREEN MAMMO-MALIGN NEOPLASM OF BLAIR 02/16/2016 FABBYNDER FELTON COXLINE S Ot 782.3 EDEMA 02/16/2016 JEANE MELTON DOQUELINE S Ot 785.2 CARDIAC MURMURS NEC 02/16/2016 FLORENCIO HERNÁNDEZ, MARY Woods Ot V72.84 EXAM PRE-OPERATIVE NOS 02/16/2016 JEANE MELTON DOQUELINE S Ot M25.572 PAIN IN LEFT ANKLE AND JOINTS OF LEFT FO 02/16/2016 PEPE STERN ACCOUNT DEVELOPER Ot M25.511 PAIN IN RIGHT SHOULDER 02/16/2016 PEPE STERN ACCOUNT DEVELOPER Ot M79.662 PAIN IN LEFT LOWER LEG 02/16/2016 PEPE STERN APRN Ot R60.0 LOCALIZED EDEMA 02/16/2016 STEW HERNÁNDEZ, KAYLENE Tejada Ot M54.5 LOW BACK PAIN 02/16/2016 STEW HERNÁNDEZ, KAYLENE Tejada Ot M43.06 SPONDYLOLYSIS, LUMBAR REGION 02/17/2016 ROSE VERDUZCO Ot M19.072 PRIMARY OSTEOARTHRITIS, LEFT ANKLE AND F 02/17/2016 ROSE VERDUZCO Ot M19.072 PRIMARY OSTEOARTHRITIS, LEFT ANKLE AND F 03/08/2016 STEW HERNÁNDEZ, KAYLENE Tejada Ot M43.06 SPONDYLOLYSIS, LUMBAR REGION 03/08/2016 ROSE VERDUZCO Ot M19.072 PRIMARY OSTEOARTHRITIS, LEFT ANKLE AND F 03/14/2016 STEW HERNÁNDEZ, KAYLENE Tejada Ot M43.06 SPONDYLOLYSIS, LUMBAR REGION 03/14/2016 ROSE VERDUZCO Ot M19.072 PRIMARY OSTEOARTHRITIS, LEFT ANKLE AND F 03/16/2016 KAYLENE MATHIAS MD Ot M43.06 SPONDYLOLYSIS, LUMBAR REGION 03/21/2016 Ot V76.12 OTH SCREEN MAMMO-MALIGN NEOPLASM OF BLAIR 03/21/2016 FABBYNDER JEANE COXADORE S Ot 782.3 EDEMA 03/21/2016 LISBETHER JEANE COXADORE S Ot 785.2 CARDIAC MURMURS NEC 03/21/2016 FLORENCIO HERNÁNDEZ, MARY Woods Ot V72.84 EXAM PRE-OPERATIVE NOS 03/21/2016 JEANE MELTON DOQUELINE S Ot M25.572 PAIN IN LEFT ANKLE AND JOINTS OF LEFT FO 03/21/2016 PEPE STERN APRN Ot M25.511 PAIN IN RIGHT SHOULDER 03/21/2016 PEPE STERN ACCOUNT DEVELOPER Ot M79.662 PAIN IN LEFT LOWER LEG 03/21/2016 PEPE STERN ACCOUNT DEVELOPER Ot R60.0 LOCALIZED EDEMA 03/21/2016 STEW HERNÁNDEZ, KAYLENE Tejada Ot M54.5 LOW BACK PAIN 03/21/2016 ROSE VERDUZCO Ot M19.072 PRIMARY OSTEOARTHRITIS, LEFT ANKLE AND F 03/21/2016 STEW HERNÁNDEZ, KAYLENE Tejada Ot M43.06 SPONDYLOLYSIS, LUMBAR REGION 03/22/2016 KAYLENE MATHIAS MD Ot M43.06 SPONDYLOLYSIS, LUMBAR REGION 03/23/2016 KAYLENE MATHIAS MD, Ot M43.06 SPONDYLOLYSIS, LUMBAR REGION 06/28/2016 Ot V76.12 OTH SCREEN MAMMO-MALIGN NEOPLASM OF BLAIR 06/28/2016 ADORE MELTON DO S Ot 782.3 EDEMA 06/28/2016 ADORE MELTON DO S Ot 785.2 CARDIAC MURMURS NEC 06/28/2016 FLORENCIO HERNÁNDEZ, MARY Woods Ot V72.84 EXAM PRE-OPERATIVE NOS 06/28/2016 JEANE MELTON DOQUELINE S Ot M25.572 PAIN IN LEFT ANKLE AND JOINTS OF LEFT FO 06/28/2016 PEPE STERN ACCOUNT DEVELOPER Ot M25.511 PAIN IN RIGHT SHOULDER 06/28/2016 PEPE STERN ACCOUNT DEVELOPER Ot M79.662 PAIN IN LEFT LOWER LEG 06/28/2016 PEPE STERN ACCOUNT DEVELOPER Ot R60.0 LOCALIZED EDEMA 06/28/2016 KAYLENE MATHIAS MD Ot M54.5 LOW BACK PAIN 06/28/2016 ROSE VERDUZCOP Ot M19.072 PRIMARY OSTEOARTHRITIS, LEFT ANKLE AND F 06/28/2016 NOEMY MEZA DO Ot Z47.89 ENCOUNTER FOR OTHER ORTHOPEDIC AFTERCARE 07/04/2016 ROSE VERDUZCO [employer] SE[employer]ATION PLANT OPERATOR Ot K59.00 CONSTIPATION, UNSPECIFIED 07/04/2016 ROSE VERDUZCOP Ot R10.31 RIGHT LOWER QUADRANT PAIN 07/19/2016 ROSE VERDUZCOP Ot K59.00 CONSTIPATION, UNSPECIFIED 07/19/2016 ROSE VERDUZCOP Ot R10.31 RIGHT LOWER QUADRANT PAIN 07/23/2016 FLORENCIO HERNÁNDEZ, MARY Woods Ot R10.31 RIGHT LOWER QUADRANT PAIN 07/23/2016 FLORENCIO HERNÁNDEZ, MARY Woods Ot R53.83 OTHER FATIGUE 07/25/2016 FLORENCIO HERNÁNDEZ, MARY Woods Ot D25.9 LEIOMYOMA OF UTERUS, UNSPECIFIED 07/25/2016 FLORENCIO HERNÁNDEZ, MARY Woods Ot N85.00 ENDOMETRIAL HYPERPLASIA, UNSPECIFIED 07/25/2016 FLORENCIO HERNÁNDEZ, MARY Woods Ot D25.9 LEIOMYOMA OF UTERUS, UNSPECIFIED 07/25/2016 FLORENCIO HERNÁNDEZ, MARY Woods Ot N85.00 ENDOMETRIAL HYPERPLASIA, UNSPECIFIED 07/25/2016 ROSE VERDUZCO Ot K59.00 CONSTIPATION, UNSPECIFIED 07/25/2016 ROSE VERDUZCO Ot R10.31 RIGHT LOWER QUADRANT PAIN 07/25/2016 FLORENCIO HERNÁNDEZ, MARY Woods Ot D25.9 LEIOMYOMA OF UTERUS, UNSPECIFIED 07/25/2016 FLORENCIO HERNÁNDEZ, MARY Woods Ot N85.00 ENDOMETRIAL HYPERPLASIA, UNSPECIFIED 07/25/2016 FLORENCIO HERNÁNDEZ, MARY Woods Ot R19.4 CHANGE IN BOWEL HABIT 07/25/2016 FLORENCIO HERNÁNDEZ, MARY Woods Ot Z01.818 ENCOUNTER FOR OTHER PREPROCEDURAL EXAMIN 07/26/2016 Ot V76.12 OTH SCREEN MAMMO-MALIGN NEOPLASM OF BLAIR 07/26/2016 ADORE MELTON DO Ot 782.3 EDEMA 07/26/2016 ADORE MELTON DO Ot 785.2 CARDIAC MURMURS NEC 07/26/2016 MARY MATIAS MD Ot V72.84 EXAM PRE-OPERATIVE NOS 07/26/2016 ADORE MELTON DO Ot M25.572 PAIN IN LEFT ANKLE AND JOINTS OF LEFT FO 07/26/2016 PEPE STERN ACCOUNT DEVELOPER Ot M25.511 PAIN IN RIGHT SHOULDER 07/26/2016 PEPE STERN ACCOUNT DEVELOPER Ot M79.662 PAIN IN LEFT LOWER LEG 07/26/2016 PEPE STERN ACCOUNT DEVELOPER Ot R60.0 LOCALIZED EDEMA 07/26/2016 STEW HERNÁNDEZ, KAYLENE eTjada Ot M54.5 LOW BACK PAIN 07/26/2016 ROSE VERDUZCO Ot M19.072 PRIMARY OSTEOARTHRITIS, LEFT ANKLE AND F 07/26/2016 NOEMY EMZA DO Ot Z47.89 ENCOUNTER FOR OTHER ORTHOPEDIC AFTERCARE 07/26/2016 ROSE VERDUZCO [employer] PLANT OPERATOR Ot K59.00 CONSTIPATION, UNSPECIFIED 07/26/2016 ROSE VERDUZCO [employer] SE[employer] PLANT OPERATOR Ot R10.31 RIGHT LOWER QUADRANT PAIN 07/26/2016 ROSE VERDUZCO [employer] SE[employer] PLANT OPERATOR Ot R10.11 RIGHT UPPER QUADRANT PAIN 07/26/2016 MARY MATIAS MD Ot R10.31 RIGHT LOWER QUADRANT PAIN 07/26/2016 MARY MATIAS MD Ot R53.83 OTHER FATIGUE 07/26/2016 FLORENCIO HERNÁNDEZ, MARY Woods Ot D25.9 LEIOMYOMA OF UTERUS, UNSPECIFIED 07/26/2016 MARY MATIAS MD Ot N85.00 ENDOMETRIAL HYPERPLASIA, UNSPECIFIED 07/26/2016 MARY MATIAS MD Ot K57.30 DVRTCLOS OF LG INT W/O PERFORATION OR AB 07/26/2016 MARY MATIAS MD Ot R10.31 RIGHT LOWER QUADRANT PAIN 07/26/2016 MARY MATIAS MD Ot R19.4 CHANGE IN BOWEL HABIT 07/26/2016 MARY MATIAS MD Ot R19.4 CHANGE IN BOWEL HABIT 07/26/2016 MARY MATIAS MD Ot Z01.818 ENCOUNTER FOR OTHER PREPROCEDURAL EXAMIN 07/27/2016 MARY MATIAS MD Ot K57.30 DVRTCLOS OF LG INT W/O PERFORATION OR AB 07/27/2016 MARY MATIAS MD Ot R10.31 RIGHT LOWER QUADRANT PAIN 07/27/2016 MARY MATIAS MD Ot R19.4 CHANGE IN BOWEL HABIT 08/02/2016 MARY MATIAS MD Ot K57.30 DVRTCLOS OF LG INT W/O PERFORATION OR AB 08/02/2016 MARY MATIAS MD Ot R10.31 RIGHT LOWER QUADRANT PAIN 08/02/2016 MARY MATIAS MD Ot R19.4 CHANGE IN BOWEL HABIT 08/02/2016 Ot V76.12 OTH SCREEN MAMMO-MALIGN NEOPLASM OF BLAIR 08/02/2016 ADORE MELTON DO S Ot 782.3 EDEMA 08/02/2016 ADORE MELTON DO S Ot 785.2 CARDIAC MURMURS NEC 08/02/2016 MARY MATIAS MD Ot V72.84 EXAM PRE-OPERATIVE NOS 08/02/2016 ADORE MELTON DO Ot M25.572 PAIN IN LEFT ANKLE AND JOINTS OF LEFT FO 08/02/2016 JARREDALEXANDERPEPE N ACCOUNT DEVELOPER Ot M25.511 PAIN IN RIGHT SHOULDER 08/02/2016 JARREDALEXANDERPEPE N ACCOUNT DEVELOPER Ot M79.662 PAIN IN LEFT LOWER LEG 08/02/2016 JARREDALEXANDERPEPEJAMES Frederick APRN Ot R60.0 LOCALIZED EDEMA 08/02/2016 STEW HERNÁNDEZ, KAYLENE Tejada Ot M54.5 LOW BACK PAIN 08/02/2016 ROSE VERDUZCO Ot M19.072 PRIMARY OSTEOARTHRITIS, LEFT ANKLE AND F 08/02/2016 NOEMY MEZA DO Ot Z47.89 ENCOUNTER FOR OTHER ORTHOPEDIC AFTERCARE 08/02/2016 ROSE VERDUZCO Ot K59.00 CONSTIPATION, UNSPECIFIED 08/02/2016 ROSE VERDUZCO Ot R10.31 RIGHT LOWER QUADRANT PAIN 08/02/2016 ROSE VERDUZCO Ot R10.11 RIGHT UPPER QUADRANT PAIN 08/02/2016 FLORENCIO HERNÁNDEZ, MARY Woods Ot R10.31 RIGHT LOWER QUADRANT PAIN 08/02/2016 FLORENCIO HERNÁNDEZ, MARY Woods Ot R53.83 OTHER FATIGUE 08/02/2016 FLORENCIO HERNÁNDEZ, MARY Woods Ot D25.9 LEIOMYOMA OF UTERUS, UNSPECIFIED 08/02/2016 FLORENCIO HERNÁNDEZ, MARY Woods Ot N85.00 ENDOMETRIAL HYPERPLASIA, UNSPECIFIED 08/03/2016 GRACIA GUERRA MD Ot E11.9 TYPE 2 DIABETES MELLITUS WITHOUT COMPLIC 08/03/2016 GRACIA GUERRA MD Ot F41.9 ANXIETY DISORDER, UNSPECIFIED 08/03/2016 GRACIA GUERRA MD Ot I10 ESSENTIAL (PRIMARY) HYPERTENSION 08/03/2016 GRACIA GUERRA MD Ot R10.31 RIGHT LOWER QUADRANT PAIN 08/09/2016 ROSE VERDUZCO Ot R10.11 RIGHT UPPER QUADRANT PAIN 08/13/2016 NOEMY MEZA DO Ot Z47.89 ENCOUNTER FOR OTHER ORTHOPEDIC AFTERCARE 08/13/2016 Ot V76.12 OTH SCREEN MAMMO-MALIGN NEOPLASM OF BLAIR 08/13/2016 ADORE MELTON DO Ot 782.3 EDEMA 08/13/2016 FELTON MELTON DOLINE Nabil Ot 785.2 CARDIAC MURMURS NEC 08/13/2016 FLORENCIO HERNÁNDEZ, MARY Woods Ot V72.84 EXAM PRE-OPERATIVE NOS 08/13/2016 ADORE MELTON DO Ot M25.572 PAIN IN LEFT ANKLE AND JOINTS OF LEFT FO 08/13/2016 PEPE STERN ACCOUNT DEVELOPER Ot M25.511 PAIN IN RIGHT SHOULDER 08/13/2016 PEPE STERN Otoniel ACCOUNT DEVELOPER Ot M79.662 PAIN IN LEFT LOWER LEG 08/13/2016 PEPE STERN Otoniel ACCOUNT DEVELOPER Ot R60.0 LOCALIZED EDEMA 08/13/2016 STEW HERNÁNDEZ, KAYLENE Tejada Ot M54.5 LOW BACK PAIN 08/13/2016 ROSE VERDUZCO [employer] PLANT OPERATOR Ot M19.072 PRIMARY OSTEOARTHRITIS, LEFT ANKLE AND F 08/13/2016 NOEMY MEZA DO Ot Z47.89 ENCOUNTER FOR OTHER ORTHOPEDIC AFTERCARE 08/13/2016 ROSE VERDUZCO [employer] SE[employer] PLANT OPERATOR Ot K59.00 CONSTIPATION, UNSPECIFIED 08/13/2016 ROSE VERDUZCO [employer] SE[employer] PLANT OPERATOR Ot R10.31 RIGHT LOWER QUADRANT PAIN 08/13/2016 ROSE VERDUZCO [employer] SE[employer] PLANT OPERATOR Ot R10.11 RIGHT UPPER QUADRANT PAIN 08/13/2016 FLORENCIO HERNÁNDEZ, MARY Woods Ot R10.31 RIGHT LOWER QUADRANT PAIN 08/13/2016 FLORENCIO HERNÁNDEZ, MARY Woods Ot R53.83 OTHER FATIGUE 08/13/2016 FLORENCIO HERNÁNDEZ, MARY Woods Ot D25.9 LEIOMYOMA OF UTERUS, UNSPECIFIED 08/13/2016 FLORENCIO HERNÁNDEZ, MARY Woods Ot N85.00 ENDOMETRIAL HYPERPLASIA, UNSPECIFIED 08/13/2016 FLORENCIO HERNÁNDEZ, MARY Woods Ot R10.31 RIGHT LOWER QUADRANT PAIN 08/13/2016 FLORENCIO HERNÁNDEZ, MARY Woods Ot R53.83 OTHER FATIGUE 08/14/2016 KAYLENE MATHIAS MD Ot 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 08/14/2016 KAYLENE MATHIAS MD Ot M54.5 LOW BACK PAIN 08/14/2016 KAYLENE MATHIAS MD Ot 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 08/14/2016 KAYLENE MATHIAS MD Ot M54.5 LOW BACK PAIN 08/14/2016 FLORENCIO HERNÁNDEZ, MARY Woods Ot D25.9 LEIOMYOMA OF UTERUS, UNSPECIFIED 08/14/2016 FLORENCIO HERNÁNDEZ, MARY Woods Ot N85.00 ENDOMETRIAL HYPERPLASIA, UNSPECIFIED 08/16/2016 NOEMY MEZA DO Ot Z47.89 ENCOUNTER FOR OTHER ORTHOPEDIC AFTERCARE 08/16/2016 DAX ROSEMAXIMO SHI Ot R10.11 RIGHT UPPER QUADRANT PAIN 08/16/2016 FLORENCIO HERNÁNDEZ, MARY Woods Ot R10.31 RIGHT LOWER QUADRANT PAIN 08/16/2016 FLORENCIO HERNÁNDEZ, MARY Woods Ot R53.83 OTHER FATIGUE 08/17/2016 NOEMY MEZA DO Ot Z47.89 ENCOUNTER FOR OTHER ORTHOPEDIC AFTERCARE 08/22/2016 FLORENCIO HERNÁNDEZ, MARY Woods Ot D25.9 LEIOMYOMA OF UTERUS, UNSPECIFIED 08/22/2016 FLORENCIO HERNÁNDEZ, MARY Woods Ot N85.00 ENDOMETRIAL HYPERPLASIA, UNSPECIFIED 09/04/2016 STEW HERNÁNDEZ, KAYLENE Tejada Ot 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 09/04/2016 STEW HERNÁNDEZ, KAYLENE Tejada Ot M54.5 LOW BACK PAIN 09/12/2016 STEW HERNÁNDEZ, KAYLENE Tejada Ot 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 09/12/2016 STEW HERNÁNDEZ, KAYLENE Tejada Ot M54.5 LOW BACK PAIN 10/26/2016 LACHELLE ACOSTA ACCOUNT DEVELOPER Ot M25.551 PAIN IN RIGHT HIP 12/06/2016 LACHELLE ACOSTA ACCOUNT DEVELOPER Ot M25.551 PAIN IN RIGHT HIP 12/13/2016 LACHELLE ACOSTA ACCOUNT DEVELOPER Ot M25.551 PAIN IN RIGHT HIP 01/24/2017 LACHELLE ACOSTA ACCOUNT DEVELOPER Ot M25.551 PAIN IN RIGHT HIP 01/25/2017 LACHELLE ACOSTA ACCOUNT DEVELOPER Ot M25.551 PAIN IN RIGHT HIP 05/17/2017 NOEMY MEZA DO Ot Z47.1 AFTERCARE FOLLOWING JOINT REPLACEMENT FATIMA 05/17/2017 NOEMY MEZA DO Ot Z96.652 PRESENCE OF LEFT ARTIFICIAL KNEE JOINT 06/11/2017 NOEMY MEZA DO Ot Z47.1 AFTERCARE FOLLOWING JOINT REPLACEMENT FATIMA 06/11/2017 NOEMY MEZA DO Ot Z96.652 PRESENCE OF LEFT ARTIFICIAL KNEE JOINT 06/21/2017 NOEMY MEZA DO Ot Z47.1 AFTERCARE FOLLOWING JOINT REPLACEMENT FATIMA 06/21/2017 NOEMY MEZA DO Ot Z96.652 PRESENCE OF LEFT ARTIFICIAL KNEE JOINT 07/04/2017 NOEMY MEZA DO Ot Z47.1 AFTERCARE FOLLOWING JOINT REPLACEMENT FATIMA 07/04/2017 NOEMY MEZA DO Ot Z96.652 PRESENCE OF LEFT ARTIFICIAL KNEE JOINT Procedures Code Description Performed By Performed On [id number] INTRODUCE LOCAL ANESTH IN [facility], [facility] 08/03/2016 Results Test Result Range Complete blood count (CBC) with automated white blood cell (WBC) differential - 07/20/16 12:48 Blood leukocytes automated count (number/volume) 8.3 10*3/uL 4.3-11.0 Blood erythrocytes automated count (number/volume) 5.34 10*6/uL 4.35-5.85 Venous blood hemoglobin measurement (mass/volume) 14.3 g/dL 11.5-16.0 Blood hematocrit (volume fraction) 44 % 35-52 Automated erythrocyte mean corpuscular volume 82 [foz_us] 80-99 Automated erythrocyte mean corpuscular hemoglobin (mass per erythrocyte) 27 pg 25-34 Automated erythrocyte mean corpuscular hemoglobin concentration measurement ( mass/volume) 33 g/dL 32-36 Automated erythrocyte distribution width ratio 14.5 % 10.0-14.5 Automated blood platelet count (count/volume) 305 10*3/uL 130-400 Automated blood platelet mean volume measurement 9.6 [foz_us] 7.4-10.4 Automated blood neutrophils/100 leukocytes 64 % 42-75 Automated blood lymphocytes/100 leukocytes 23 % 12-44 Blood monocytes/100 leukocytes 9 % 0-12 Automated blood eosinophils/100 leukocytes 4 % 0-10 Automated blood basophils/100 leukocytes 0 % 0-10 Blood neutrophils automated count (number/volume) 5.3 10*3 1.8-7.8 Blood lymphocytes automated count (number/volume) 1.9 10*3 1.0-4.0 Blood monocytes automated count (number/volume) 0.8 10*3 0.0-1.0 Automated eosinophil count 0.3 10*3/uL 0.0-0.3 Automated blood basophil count (count/volume) 0.0 10*3/uL 0.0-0.1 Comprehensive metabolic panel - 02/03/17 12:48 Serum or plasma sodium measurement (moles/volume) 137 mmol/L 135-145 Serum or plasma potassium measurement (moles/volume) 5.1 mmol/L 3.6-5.0 Serum or plasma chloride measurement (moles/volume) 103 mmol/L 98-107 Carbon dioxide 25 mmol/L 21-32 Serum or plasma anion gap determination (moles/volume) 9 mmol/L 5-14 Serum or plasma urea nitrogen measurement (mass/volume) 31 mg/dL 7-18 Serum or plasma creatinine measurement (mass/volume) 1.12 mg/dL 0.60-1.30 Serum or plasma urea nitrogen/creatinine mass ratio 28 NRG Serum or plasma creatinine measurement with calculation of estimated glomerular filtration rate 48 NRG Serum or plasma glucose measurement (mass/volume) 100 mg/dL 70-105 Serum or plasma calcium measurement (mass/volume) 10.3 mg/dL 8.5-10.1 Serum or plasma total bilirubin measurement (mass/volume) 0.6 mg/dL 0.1-1.0 Serum or plasma alkaline phosphatase measurement (enzymatic activity/volume) 104 U/L 40-136 Serum or plasma aspartate aminotransferase measurement (enzymatic activity/ volume) 18 U/L 5-34 Serum or plasma alanine aminotransferase measurement (enzymatic activity/volume ) 19 U/L 0-55 Serum or plasma protein measurement (mass/volume) 6.9 g/dL 6.4-8.2 Serum or plasma albumin measurement (mass/volume) 4.3 g/dL 3.2-4.5 Complete urinalysis with reflex to culture - 08/02/16 12:00 Urine color determination YELLOW NRG Urine clarity determination CLEAR NRG Urine pH measurement by test strip 5 5-9 Specific gravity of urine by test strip 1.020 1.016- 1.022 Urine protein assay by test strip, semi-quantitative NEGATIVE NEGATIVE Urine glucose detection by automated test strip NEGATIVE NEGATIVE Erythrocytes detection in urine sediment by light microscopy NEGATIVE NEGATIVE Urine ketones detection by automated test strip NEGATIVE NEGATIVE Urine nitrite detection by test strip NEGATIVE NEGATIVE Urine total bilirubin detection by test strip NEGATIVE NEGATIVE Urine urobilinogen measurement by automated test strip (mass/volume) NORMAL NORMAL Urine leukocyte esterase detection by dipstick 2+ NEGATIVE Automated urine sediment erythrocyte count by microscopy (number/high power field) NONE NRG Automated urine sediment leukocyte count by microscopy (number/high power field ) [HPF] NRG Bacteria detection in urine sediment by light microscopy FEW NRG Squamous epithelial cells detection in urine sediment by light microscopy 0-2 NRG Crystals detection in urine sediment by light microscopy NONE NRG Casts detection in urine sediment by light microscopy NONE NRG Mucus detection in urine sediment by light microscopy NEGATIVE NRG Complete urinalysis with reflex to culture NO NRG Complete blood count (CBC) with automated white blood cell (WBC) differential - 08/02/16 12:50 Blood leukocytes automated count (number/volume) 9.7 10*3/uL 4.3-11.0 Blood erythrocytes automated count (number/volume) 4.69 10*6/uL 4.35-5.85 Venous blood hemoglobin measurement (mass/volume) 12.8 g/dL 11.5-16.0 Blood hematocrit (volume fraction) 39 % 35-52 Automated erythrocyte mean corpuscular volume 83 [foz_us] 80-99 Automated erythrocyte mean corpuscular hemoglobin (mass per erythrocyte) 27 pg 25-34 Automated erythrocyte mean corpuscular hemoglobin concentration measurement ( mass/volume) 33 g/dL 32-36 Automated erythrocyte distribution width ratio 14.8 % 10.0-14.5 Automated blood platelet count (count/volume) 318 10*3/uL 130-400 Automated blood platelet mean volume measurement 9.4 [foz_us] 7.4-10.4 Automated blood neutrophils/100 leukocytes 72 % 42-75 Automated blood lymphocytes/100 leukocytes 16 % 12-44 Blood monocytes/100 leukocytes 8 % 0-12 Automated blood eosinophils/100 leukocytes 4 % 0-10 Automated blood basophils/100 leukocytes 0 % 0-10 Blood neutrophils automated count (number/volume) 7.0 10*3 1.8-7.8 Blood lymphocytes automated count (number/volume) 1.5 10*3 1.0-4.0 Blood monocytes automated count (number/volume) 0.8 10*3 0.0-1.0 Automated eosinophil count 0.4 10*3/uL 0.0-0.3 Automated blood basophil count (count/volume) 0.0 10*3/uL 0.0-0.1 Erythrocyte sedimentation rate by westergren method - 08/02/16 12:50 Erythrocyte sedimentation rate by westergren method 7 mm 0-30 Comprehensive metabolic panel - 08/02/16 12:50 Serum or plasma sodium measurement (moles/volume) 141 mmol/L 135-145 Serum or plasma potassium measurement (moles/volume) 4.8 mmol/L 3.6-5.0 Serum or plasma chloride measurement (moles/volume) 105 mmol/L 98-107 Carbon dioxide 26 mmol/L 21-32 Serum or plasma anion gap determination (moles/volume) 10 mmol/L 5-14 Serum or plasma urea nitrogen measurement (mass/volume) 22 mg/dL 7-18 Serum or plasma creatinine measurement (mass/volume) 0.81 mg/dL 0.60-1.30 Serum or plasma urea nitrogen/creatinine mass ratio 27 NRG Serum or plasma creatinine measurement with calculation of estimated glomerular filtration rate > NRG Serum or plasma glucose measurement (mass/volume) 98 mg/dL 70-105 Serum or plasma calcium measurement (mass/volume) 9.9 mg/dL 8.5-10.1 Serum or plasma total bilirubin measurement (mass/volume) 0.7 mg/dL 0.1-1.0 Serum or plasma alkaline phosphatase measurement (enzymatic activity/volume) 100 U/L 40-136 Serum or plasma aspartate aminotransferase measurement (enzymatic activity/ volume) 17 U/L 5-34 Serum or plasma alanine aminotransferase measurement (enzymatic activity/volume ) 15 U/L 0-55 Serum or plasma protein measurement (mass/volume) 6.2 g/dL 6.4-8.2 Serum or plasma albumin measurement (mass/volume) 3.7 g/dL 3.2-4.5 Serum or plasma C reactive protein measurement (mass/volume) - 08/02/16 12:50 Serum or plasma C reactive protein measurement (mass/volume) 0.28 mg /dL 0.00-0.50 Encounters ACCT No. Visit Date/Time Discharge Status Pt. Type Provider Facility Loc./Unit Complaint [id number] 07/04/2017 08:46:00 07/04/2017 09:20:00 DIS Outpatient NOEMY MEZA DO [facility] REHAB S/P L TKR [id number] 01/25/2017 00:17:00 01/25/2017 23:59:59 CLS Preadmit LACHELLE ACOSTA APRN [facility] REHAB PSOAS MUSCLE PAIN/ INFLAMMATION [id number] 12/19/2016 09:00:00 01/24/2017 00:01:00 DIS Outpatient LACHELLE ACOSTA APRN [facility] RE[facility] PSOAS MUSCLE PAIN/ INFLAMMATION [id number] 08/17/2016 11:26:00 08/17/2016 13:06:00 DIS Outpatient DERRICK NOEMY COX [facility] REHAB R SHOULDER ROTATOR CUFF REPAIR [id number] 08/13/2016 08:54:00 08/13/2016 23:59:59 CLS Outpatient KAYLENE MATHIAS MD [facility] RAD LOW BACK PAIN,M54.12, M54.13 [id number] 08/02/2016 10:48:00 08/03/2016 13:45:00 DIS Inpatient GRACIA GUERRA MD [facility] WS INTRACTIBLE ABD PAIN [id number] 07/26/2016 07:49:00 07/26/2016 11:00:00 DIS Outpatient MARY MATIAS MD [facility] ENDO CHANGE IN BOWEL HABIT [id number] 07/25/2016 05:50:00 07/25/2016 14:45:00 DIS Outpatient MARY MATIAS MD [facility] PREOP CHANGE IN BOWEL HABIT [id number] 07/24/2016 10:16:00 07/24/2016 23:59:59 CLS Outpatient MARY MATIAS MD [facility] RAD RT LOWER QUAD PAIN [id number] 07/20/2016 12:35:00 07/20/2016 23:59:59 CLS Outpatient MARY MATIAS MD [facility] RAD RT LQ PAIN, RT ING PAIN, ABD PAIN,FATIGUE [id number] 07/06/2016 14:59:00 07/06/2016 23:59:59 CLS Outpatient ROSE VERDUZCOP [facility] RAD RUQ PAIN [id number] 06/28/2016 09:36:00 06/28/2016 23:59:59 CLS Outpatient ROSE VERDUZCOP [facility] RAD RLQ PAIN, CONSTIPATION [id number] 03/23/2016 08:28:00 03/23/2016 09:13:00 DIS Outpatient KAYLENE MATHIAS MD [facility] REHAB LUMBAR SPONDY [id number] 03/08/2016 08:30:00 03/16/2016 17:00:00 DIS Outpatient KAYLENE MATHIAS MD [facility] REHAB LUMBAR SPONDY [id number] 02/16/2016 09:55:00 02/16/2016 23:59:59 CLS Outpatient ROSE VERDUZCO [facility] RAD L FOOT PAIN [id number] 12/30/2015 11:19:00 12/30/2015 23:59:59 CLS Outpatient KAYLENE MATHIAS MD [facility] RAD LUMBAGO [id number] 12/07/2015 09:53:00 12/07/2015 23:59:59 CLS Outpatient PEPE STERN Otoniel MARR [facility] RAD LLE SWELLING, R SHOULDER PAIN [id number] 08/19/2015 20:03:00 08/19/2015 21:27:00 DIS Emergency ANDRY LYON MD [facility] ER R LEG PAIN [id number] 08/04/2015 08:45:00 08/04/2015 23:59:59 CLS Outpatient ADORE MELTON DO [facility] RAD L ANKLE PAIN [id number] 04/19/2014 07:20:00 04/19/2014 10:10:00 DIS Outpatient MARY MATIAS MD [facility] SDC HISTORY POLYPS [id number] 04/14/2014 08:51:00 04/14/2014 23:59:59 CLS Outpatient MARY MATIAS MD [facility] PREOP HISTORY POLYPS [id number] 08/27/2013 08:10:00 08/27/2013 23:59:59 CLS Outpatient ADORE MELTON DO [facility] CARD CARDIAC FERN JOHNSON [id number] 06/15/2011 08:49:00 Document Registration [id number] 04/19/2010 12:42:00 Document Registration [id number] 04/12/2010 09:01:00 Document Registration [id number] 12/12/2015 15:12:11 12/12/2015 23:59:59 [facility] Outpatient
[2018-10-23] MEDS ORDERED: NFIPRATRNS (23:22)
[2018-10-24] MEDS ORDERED: TETANUS,DIPTH,PERTUSS P/F (BOOSTRIX) 0.5 ML VIAL IM ONE (00:45)
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
[2018-10-24 01:40] VITALS: BP 162/87
--- NOTE | 2018-10-24 05:45 | Diagnostic Imaging Report ---
PROCEDURE: CT head and CT cervical spine without contrast. TECHNIQUE: Multiple contiguous axial images were obtained through the brain and cervical spine without the use of intravenous contrast. Sagittal and coronal reformations through the cervical spine were then performed. Auto Exposure Controls were utilized during the CT exam to meet ALARA standards for radiation dose reduction. INDICATION: Fall. Left eye hematoma. Head injury. COMPARISON: None. FINDINGS: CT head: Scalp hematoma overlying the left orbit. No underlying fractures. The visualized paranasal sinuses and mastoids are clear. Moderate generalized cerebral and cerebellar parenchymal volume loss. No intracranial hemorrhage, mass effect, hydrocephalus or extra-axial fluid collections. CT cervical spine: Minimal anterolisthesis of C4 on C5. Alignment is otherwise unremarkable. Vertebral body heights are preserved. No fractures. Degenerative changes about the left C3-C4 facet. No high-grade spinal canal narrowing is evident on this noncontrast exam. IMPRESSION: 1. Large scalp hematoma overlying the left orbit. No fractures are identified. 2. No acute intracranial or cervical spine CT findings. Dictated by: Dictated on workstation # [id number]
== END 2018-10-24 01:44 | disposition home or self-care (01) ==
LOC: EDUNIT# 23:06 → ER 23:08
DX: S16.1XXA Strain of muscle, fascia and tendon at neck level, initial encounter (principal); S00.83XA Contusion of other part of head, initial encounter; I10 Essential (primary) hypertension; E11.9 Type 2 diabetes mellitus without complications; R40.2142 Coma scale, eyes open, spontaneous, at arrival to emergency department; R40.2252 Coma scale, best verbal response, oriented, at arrival to emergency department; R40.2362 Coma scale, best motor response, obeys commands, at arrival to emergency department; Z23 Encounter for immunization; Z80.1 Family history of malignant neoplasm of trachea, bronchus and lung; Z80.0 Family history of malignant neoplasm of digestive organs; Z80.42 Family history of malignant neoplasm of prostate; Z82.49 Family history of ischemic heart disease and other diseases of the circulatory system; Z79.82 Long term (current) use of aspirin; Z79.84 Long term (current) use of oral hypoglycemic drugs; V48.0XXA Car driver injured in noncollision transport accident in nontraffic accident, initial encounter; Y92.009 Unspecified place in unspecified non-institutional (private) residence as the place of occurrence of the external cause
CPT/HCPCS: 70450; 72125; 90471; 90715

== ENCOUNTER 2022-12-10 14:09 | Outpatient (RCR) | payer MEDICARE ==
[~2022-12-10 14:09] MED LIST changes: -BISO5TAB PO; +NF-BISOP5 PO; +NFIPRATRNS
== END 2022-12-14 | disposition home or self-care (01) ==
PROVIDERS: ATTEND Family Medicine
DX: R26.81 Unsteadiness on feet (principal); R29.6 Repeated falls

== ENCOUNTER 2023-01-10 13:53 | Outpatient (RCR) | payer MEDICARE | END 2023-01-14 | disposition home or self-care (01) | PROVIDERS: ATTEND Family Medicine | DX: R26.81 Unsteadiness on feet (principal); R29.6 Repeated falls ==

== ENCOUNTER 2023-01-24 15:43 | Outpatient (RCR) | payer MEDICARE | END 2023-02-14 | disposition home or self-care (01) | PROVIDERS: ATTEND Family Medicine | DX: R26.81 Unsteadiness on feet (principal); R29.6 Repeated falls ==